=== PATIENT | male | born 1985 | race Asian ===

== ENCOUNTER 2020-03-29 10:47 | Inpatient (IN) | payer OTHER, MEDICAID ==
[~2020-03-29] VITALS: Ht 165.1 cm; Wt 67.4 kg
[2020-03-29 11:12] LABS: BASO # 0.1 x10^3/uL (0.0-0.2); BASO % 1 % (0-3); EOS # 0.1 x10^3/uL (0.0-0.7); EOS % 1 % (0-3); HEMATOCRIT 25.6 % (39.0-53.0); HEMOGLOBIN 8.8 g/dL (13.0-17.5); LYMPH # 0.7 x10^3/uL (1.0-4.8); LYMPH % 6 % (24-48); MEAN CORPUSCULAR HEMOGLOBIN 31 pg (25-35); MEAN CORPUSCULAR HGB CONC 34 g/dL (31-37); MEAN CORPUSCULAR VOLUME 89 fL (79-100); MONO # 0.6 x10^3/uL (0.0-1.1); MONO % 6 % (0-9); NEUT # 9.4 x10^3/uL (1.8-7.7); NEUT % 87 % (31-73); PLATELET COUNT 191 x10^3/uL (140-400); RED BLOOD COUNT 2.87 x10^6/uL (4.30-5.70); RED CELL DISTRIBUTION WIDTH 15.5 % (11.5-14.5); WHITE BLOOD COUNT 10.8 x10^3/uL (4.0-11.0)
--- NOTE | 2020-03-29 11:18 | PHYS DOC ---
General Adult EDM: Chief Complaint: ABDOMINAL PAIN HPI: HPI: Patient is a 34 year old male who presents with generalized abdominal pain that started last night. He states he is peritoneal dialysis because of kidney failure. When I asked him who his chili pepper grinder is he states that it is a doctor on the [place] side and he cannot remember the name. He states he does his dialysis every night. He states he has had dialysis today. He states he had a bowel movement yesterday that was normal for him. He denies nausea, vomiting, chest pain, shortness of air, fever, back pain, radiation of pain, headache, dizziness. He states his pain is a 7 out of 10 and states that it is aching. He denies any radiation. The only history he gives me is kidney failure with peritoneal dialysis and TBI. Review of Systems: Review of Systems: Constitutional: Denies fever or chills. [] Eyes: Denies change in visual acuity. [] HENT: Denies nasal congestion or sore throat. [] Respiratory: Denies cough or shortness of breath. [] Cardiovascular: Denies chest pain or edema. [] GI: + abdominal pain, denies nausea, vomiting, bloody stools or diarrhea. [] : Denies dysuria. [] Musculoskeletal: Denies back pain or joint pain. [] Integument: Denies rash. Right lower leg skin color change.[] Neurologic: Denies headache, focal weakness or sensory changes. [] Endocrine: Denies polyuria or polydipsia. [] Lymphatic: Denies swollen glands. [] Psychiatric: Denies depression or anxiety. [] Heart Score: Risk Factors: Risk Factors: DM, Current or recent (<one month) smoker, HTN, HLP, family history of CAD, obesity. Risk Scores: Score 0 - 3: 2.5% MACE over next 6 weeks - Discharge Home Score 4 - 6: 20.3% MACE over next 6 weeks - Admit for Clinical Observation Score 7 - 10: 72.7% MACE over next 6 weeks - Early Invasive Strategies Current Medications: Current Medications Medications (Trade) Dose Ordered Sig/Corky Start Time Stop Time Status Last Admin Dose Admin Fentanyl Citrate (Fentanyl 2ml Vial) 50 mcg 1X ONCE 03/29/20 11:00 03/29/20 11:01 UNV Allergies: Allergies: Allergies Coded Allergies Type Severity Reaction Last Updated Verified No Known Drug Allergies 7/2/20 No Physical Exam: PE: Constitutional: Well developed, well nourished, no acute distress, non-toxic appearance. [] HENT: Normocephalic, atraumatic, bilateral external ears normal, oropharynx moist, no oral exudates, nose normal. [] Eyes: PERRLA, EOMI, conjunctiva normal, no discharge. [] Neck: Normal range of motion, no tenderness, supple, no stridor. [] Cardiovascular:Heart rate regular rhythm, no murmur [] Lungs & Thorax: Bilateral breath sounds clear to auscultation [] Abdomen: Bowel sounds normal, soft, generalized tenderness, no masses, no pulsatile masses. [] Skin: Warm, dry, no erythema, no rash. Right lower leg dark brown in color. [] Back: No tenderness, no CVA tenderness. [] Extremities: No tenderness, no cyanosis, no clubbing, ROM intact, no edema. [] Neurologic: Alert and oriented X 3, normal motor function, normal sensory function, no focal deficits noted. [] Psychologic: Affect normal, judgement normal, mood normal. [] EKG: EK and read by Dr Woodson as Sinus Rhythm with ventricular premature complexes, and no STEMI[] Radiology/Procedures: Radiology/Procedures: [] Impression: [facility] [address] [place] [address] IMAGING REPORT Signed PATIENT: RADAMES TANNER ACCOUNT: [id number] : 1985 LOCATION: ER AGE: 34 SEX: M EXAM STATUS: REG ER ORD. PHYSICIAN: RONEY GALINDO APRN REASON: abd pain PROCEDURE: PORTABLE CHEST 1V PORTABLE CHEST 1V Clinical Indication: Reason: abd pain / Spl. Instructions: / History: Comparison: AP chest October 05, 2008. Findings: Cardiac size is normal. There is 4.3 cm oval opacity at the right tracheobronchial angle. There are right hemithorax pleural calcifications. There is opacity at the right lung base that is similar to prior study and may be due to scarring. There is right apical capping. Scattered calcifications in the soft tissues of the chest wall for example supraclavicular are of uncertain etiology. Interstitial markings are upper limits of normal. There is no pneumothorax. No pleural effusion is appreciated. No acute bone abnormality. IMPRESSION: 1. Oval opacity at the right tracheobronchial angle could be vascular or adenopathy or mass. Recommend further evaluation with CT chest with contrast. 2. There are right pleural calcifications. 3. Opacity in the right lung base may be scarring. Electronically signed by: Lino Victor MD (03/29/2020 11:49 AM) [id number] DICTATED and SIGNED BY: LINO VICTOR MD DATE: 03/29/20 1149 [facility] [address] [place] [address] IMAGING REPORT Signed PATIENT: RADAMES TANNER ACCOUNT: [id number] : 1985 LOCATION: ER AGE: 34 SEX: M EXAM STATUS: REG ER ORD. PHYSICIAN: RONEY GALINDO APRN REASON: abd pain PROCEDURE: CT ABDOMEN PELVIS WO CONTRAST CT STUDY OF THE ABDOMEN AND PELVIS WITHOUT CONTRAST CLINICAL INDICATIONS: Abdominal pain. TECHNIQUE: Noncontrast helical CT scanning of the abdomen and pelvis was performed. Without contrast, the sensitivity to detect organ pathology and GI tract pathology is decreased. PQRS compliance Statement One or more of the following individualized dose reduction techniques were utilized for this study: 1. Automated exposure control 2. Adjustment of the mA and/or kV according to patient size 3. Use of iterative reconstruction technique COMPARISON: None available. FINDINGS: The liver is homogeneous on this noncontrast study. Spleen is mildly enlarged measuring 13.7 cm in length. Pancreas is homogeneous in appearance on this noncontrast study. The gallbladder is small in size. No extrahepatic biliary ductal dilatation is seen. Both kidneys are small in size with multiple vascular calcifications or cortical calcifications. Upper pole 13 mm hypodense nodule is seen which measures 4 Hounsfield units. This may represent a cyst but curvilinear calcification is seen within the wall. Therefore, aneurysm is in the differential diagnosis given the other vascular calcifications. There is an ill-defined round area of the lower pole of the right kidney which could represent a right renal mass. This measures 25 mm. No hydronephrosis or hydroureter is seen. Urinary bladder is not distended. Calcified atheromatous disease of the abdominal aorta is seen. No focal aneurysmal dilatation is evident. No enlarged abdominal lymphadenopathy is seen. Bilateral pelvic inguinal nodules are seen with curvilinear calcifications and therefore most likely are vascular in nature. Additional calcified varices are seen within the flanks. This could represent collateral vessels. Surgical clips are seen within the right inguinal area. There is diffuse wall thickening of large and small bowel. No obstructive bowel pattern is seen. Diffuse wall thickening of the stomach enhancing. Small amount of ascites is present. Generalized soft tissue edema is seen. The heart size is enlarged. No pleural effusion is seen. However, calcified pleural plaque is seen on the right side along with a partially calcified posterior right lower lobe lung mass. This mass measures 4 cm in greatest transverse dimension. There is diffuse increased density of the bones. This may be secondary to renal osteodystrophy i.e. rugger [place] spine. IMPRESSION: Splenomegaly. Mild ascites. Generalized soft tissue edema. Multiple calcified varicosities of the abdominal wall. The findings may be seen with cirrhosis and portal vein hypertension. Small gallbladder may be a reflection of decreased bile output secondary to cirrhosis. Possible lower pole right renal mass. Renal cyst versus calcified aneurysm of the upper right kidney. Generalized wall thickening of large and small bowel and the stomach. This may be secondary to cirrhosis. This could also be seen with gastroenterocolitis if there are clinical findings of such. 4 cm posterior right lower lobe lung mass. Calcified pleural plaquing of the right hemithorax. Cardiomegaly. Renal osteodystrophy. Electronically signed by: Hayley Rivas MD (03/29/2020 12:39 PM) [id number] DICTATED and SIGNED BY: HAYLEY RIVAS MD DATE: 03/29/20 1239 [facility] [address] [place], [place] [id number] IMAGING REPORT Signed PATIENT: RADAMES TANNER ACCOUNT: [id number] : 1985 LOCATION: ER AGE: 34 SEX: M EXAM STATUS: REG ER ORD. PHYSICIAN: RONEY GALINDO APRN REASON: skin color change PROCEDURE: VENOUS LOWER EXTREMITY RIGHT EXAM: Right lower extremity venous Doppler. HISTORY: Right lower extremity pain/swelling. COMPARISON: None. FINDINGS: Grayscale and Doppler analysis of the right lower extremity deep venous system was performed with graded compression and augmentation. The common femoral, greater saphenous, superficial femoral, popliteal and calf veins were assessed. There is no evidence of deep venous thrombosis. IMPRESSION: 1. No evidence of deep venous thrombosis. Electronically signed by: Hannah Garay MD (03/29/2020 1:15 PM) [facility] DICTATED and SIGNED BY: PEPE GARAY MD DATE: 03/29/20 1315 [facility] [address] [place] [address] IMAGING REPORT Signed PATIENT: RADAMES TANNER ACCOUNT: [id number] : 1985 LOCATION: ER AGE: 34 SEX: M EXAM STATUS: REG ER ORD. PHYSICIAN: RONEY GALINDO APRN REASON: abnormal chest xray PROCEDURE: CT CHEST W/CONTRAST Examination: CT CHEST W/CONTRAST History: Reason: abnormal chest xray / Spl. Instructions: [id number] 75ML / History: Comparison/Correlation: None Findings: Axial images of chest were obtained without contrast. Sagittal and coronal reformatted images were provided. Extensive right pleural calcification is noted. Old left rib fractures noted. Right basilar discoid atelectasis or scarring is present. Relatively less right lung volume is noted as compared to the left lung volume. The ovoid opacity at the right tracheobronchial region noted on x-ray exam corresponds to a distended azygos vein. Contrast is noted to opacify this distended azygos vein. There are significant collaterals involving the right axillary region and chest english. There is discontinuous contrast opacification of the right subclavian vein. Vascular collaterals are noted involving the right chest wall in the superior mediastinum. Superior vena cava is relatively decreased in diameter. Coronary arterial calcifications are notable. Subtle interstitial thickening of lung manzo diffusely noted. Subtle groundglass appearance of the lingular region is nonspecific. Right posterior basilar opacity likely relating to atelectasis versus evident abutting the pleura. This is seen on axial images 37 through 43 and series 2. Kidneys are atrophic in appearance. Diffuse high density of bony structures which probably relate to renal osteodystrophy noted. Impression: There is no suspicious thoracic mass. The finding of concern on chest x-ray exam performed earlier the same day corresponds to a very distended azygos vein which is contrast opacified on this exam. Significant collateral venous structures are noted involving the right axillary and chest wall region. Mediastinal collaterals. Correlate for underlying right subclavian venous occlusive process. Right pleural calcifications. Right posterior basilar density presumably related to atelectasis or scarring. Correlate with previous exams to assess stability. Stability is unknown, interval follow-up CT in 4-6 months with contrast is recommended. Correlate with surgical history. PQRS Compliance Statement: One or more of the following individualized dose reduction techniques were utilized for this examination: 1. Automated exposure control 2. Adjustment of the mA and/or kV according to patient size 3. Use of iterative reconstruction technique Electronically signed by: Reg Burgess MD (03/29/2020 1:04 PM) [id number] DICTATED and SIGNED BY: REG BUREGSS MD DATE: 03/29/20 1304 Course & Med Decision Making: Course & Med Decision Making Pertinent Labs and Imaging studies reviewed. (See chart for details) Alert and oriented. Speaks in full complete sentences. Abdomen is tight but not distended and has generalized tenderness throughout. He is npt guarding. Lungs are clear to auscultation all lobes. Patient right lower leg has skin color change that is a dark brown in color. Patient unable to tell me the history of this. No infection of drainage. It is not cool to touch, red, hot, or swollen. No calf tenderness. Patient denies any numbness or tingling. Cap refil l less than 3 seconds. Pedal pulse present. I have spoken to Dr Moran who states to admit the patient and go ahead and do a CT Chest with contrast and they can dialysize the patient on the floor. I have had Dr Woodson review patient findings. He is admitted for ascities and dialysis. [] Janine Disclaimer: Janine Disclaimer: This electronic medical record was generated, in whole or in part, using a voice recognition dictation system. Departure Departure Impression: Primary Impression: Ascites Qualified Codes: R18.8 - Other ascites Disposition: ADMITTED INPATIENT Admitting Physician: PASQUALE Condition: STABLE Justicifation of Admission Dx: Justifications for Admission: Justification of Admission Dx: Yes Comments: RONEY Colon THEATRE DIRECTOR Mar 29, 2020 11:18
[2020-03-29 11:23] LABS: PROTHROMBIN TIME PATIENT 16.2 SEC (11.7-14.0)
[2020-03-29 11:24] LABS: CALCIUM 6.8 mg/dL (8.5-10.1); CREATININE 14.7 mg/dL (0.7-1.3); GFR 3.8; POTASSIUM 3.3 mmol/L (3.5-5.1)
[2020-03-29] MEDS ORDERED: fentaNYL PF VIAL 100 MCG/2 ML VIAL IVP ONE (11:30)
[2020-03-29 11:32] LABS: ALBUMIN 2.2 g/dL (3.4-5.0); ALBUMIN/GLOBULIN RATIO 0.5 (1.0-1.7); TOTAL BILIRUBIN 0.7 mg/dL (0.2-1.0); TOTAL PROTEIN 6.3 g/dL (6.4-8.2)
[2020-03-29 11:50] LABS: % EOS 1 % (0-5); % LYMPHS 11 % (24-48); % MONOS 6 % (0-10); % SEGS 82 % (35-66); PLT ESTIMATE ADEQUATE (ADEQUATE)
--- NOTE | 2020-03-29 11:51 | RAD ---
PORTABLE CHEST 1V Clinical Indication: Reason: abd pain / Spl. Instructions: / History: Comparison: AP chest October 05, 2008. Findings: Cardiac size is normal. There is 4.3 cm oval opacity at the right tracheobronchial angle. There are right hemithorax pleural calcifications. There is opacity at the right lung base that is similar to prior study and may be due to scarring. There is right apical capping. Scattered calcifications in the soft tissues of the chest wall for example supraclavicular are of uncertain etiology. Interstitial markings are upper limits of normal. There is no pneumothorax. No pleural effusion is appreciated. No acute bone abnormality. IMPRESSION: 1. Oval opacity at the right tracheobronchial angle could be vascular or adenopathy or mass. Recommend further evaluation with CT chest with contrast. 2. There are right pleural calcifications. 3. Opacity in the right lung base may be scarring. Electronically signed by: Lino Victor MD (03/29/2020 11:49 AM) [id number]
[2020-03-29] MEDS ORDERED: IV NORMAL SALINE 500ML BAG 500 ML IV ONE (12:30)
--- NOTE | 2020-03-29 12:42 | RAD ---
CT STUDY OF THE ABDOMEN AND PELVIS WITHOUT CONTRAST CLINICAL INDICATIONS: Abdominal pain. TECHNIQUE: Noncontrast helical CT scanning of the abdomen and pelvis was performed. Without contrast, the sensitivity to detect organ pathology and GI tract pathology is decreased. PQRS compliance Statement One or more of the following individualized dose reduction techniques were utilized for this study: 1. Automated exposure control 2. Adjustment of the mA and/or kV according to patient size 3. Use of iterative reconstruction technique COMPARISON: None available. FINDINGS: The liver is homogeneous on this noncontrast study. Spleen is mildly enlarged measuring 13.7 cm in length. Pancreas is homogeneous in appearance on this noncontrast study. The gallbladder is small in size. No extrahepatic biliary ductal dilatation is seen. Both kidneys are small in size with multiple vascular calcifications or cortical calcifications. Upper pole 13 mm hypodense nodule is seen which measures 4 Hounsfield units. This may represent a cyst but curvilinear calcification is seen within the wall. Therefore, aneurysm is in the differential diagnosis given the other vascular calcifications. There is an ill-defined round area of the lower pole of the right kidney which could represent a right renal mass. This measures 25 mm. No hydronephrosis or hydroureter is seen. Urinary bladder is not distended. Calcified atheromatous disease of the abdominal aorta is seen. No focal aneurysmal dilatation is evident. No enlarged abdominal lymphadenopathy is seen. Bilateral pelvic inguinal nodules are seen with curvilinear calcifications and therefore most likely are vascular in nature. Additional calcified varices are seen within the flanks. This could represent collateral vessels. Surgical clips are seen within the right inguinal area. There is diffuse wall thickening of large and small bowel. No obstructive bowel pattern is seen. Diffuse wall thickening of the stomach enhancing. Small amount of ascites is present. Generalized soft tissue edema is seen. The heart size is enlarged. No pleural effusion is seen. However, calcified pleural plaque is seen on the right side along with a partially calcified posterior right lower lobe lung mass. This mass measures 4 cm in greatest transverse dimension. There is diffuse increased density of the bones. This may be secondary to renal osteodystrophy i.e. rugger [place] spine. IMPRESSION: Splenomegaly. Mild ascites. Generalized soft tissue edema. Multiple calcified varicosities of the abdominal wall. The findings may be seen with cirrhosis and portal vein hypertension. Small gallbladder may be a reflection of decreased bile output secondary to cirrhosis. Possible lower pole right renal mass. Renal cyst versus calcified aneurysm of the upper right kidney. Generalized wall thickening of large and small bowel and the stomach. This may be secondary to cirrhosis. This could also be seen with gastroenterocolitis if there are clinical findings of such. 4 cm posterior right lower lobe lung mass. Calcified pleural plaquing of the right hemithorax. Cardiomegaly. Renal osteodystrophy. Electronically signed by: Cory Rivas MD (03/29/2020 12:39 PM) [id number]
[2020-03-29] MEDS ORDERED: IOHEXOL 300 MG/ML 100ML VIAL. IV ONE (12:45)
[2020-03-29] MEDS ORDERED: CONTRAST GIVEN. MC PRN (12:45)
--- NOTE | 2020-03-29 13:07 | RAD ---
Examination: CT CHEST W/CONTRAST History: Reason: abnormal chest xray / Spl. Instructions: [id number] 75ML / History: Comparison/Correlation: None Findings: Axial images of chest were obtained without contrast. Sagittal and coronal reformatted images were provided. Extensive right pleural calcification is noted. Old left rib fractures noted. Right basilar discoid atelectasis or scarring is present. Relatively less right lung volume is noted as compared to the left lung volume. The ovoid opacity at the right tracheobronchial region noted on x-ray exam corresponds to a distended azygos vein. Contrast is noted to opacify this distended azygos vein. There are significant collaterals involving the right axillary region and chest english. There is discontinuous contrast opacification of the right subclavian vein. Vascular collaterals are noted involving the right chest wall in the superior mediastinum. Superior vena cava is relatively decreased in diameter. Coronary arterial calcifications are notable. Subtle interstitial thickening of lung manzo diffusely noted. Subtle groundglass appearance of the lingular region is nonspecific. Right posterior basilar opacity likely relating to atelectasis versus evident abutting the pleura. This is seen on axial images 37 through 43 and series 2. Kidneys are atrophic in appearance. Diffuse high density of bony structures which probably relate to renal osteodystrophy noted. Impression: There is no suspicious thoracic mass. The finding of concern on chest x-ray exam performed earlier the same day corresponds to a very distended azygos vein which is contrast opacified on this exam. Significant collateral venous structures are noted involving the right axillary and chest wall region. Mediastinal collaterals. Correlate for underlying right subclavian venous occlusive process. Right pleural calcifications. Right posterior basilar density presumably related to atelectasis or scarring. Correlate with previous exams to assess stability. Stability is unknown, interval follow-up CT in 4-6 months with contrast is recommended. Correlate with surgical history. PQRS Compliance Statement: One or more of the following individualized dose reduction techniques were utilized for this examination: 1. Automated exposure control 2. Adjustment of the mA and/or kV according to patient size 3. Use of iterative reconstruction technique Electronically signed by: Reg Gonzalez MD (03/29/2020 1:04 PM) [id number]
--- NOTE | 2020-03-29 13:18 | RAD ---
EXAM: Right lower extremity venous Doppler. HISTORY: Right lower extremity pain/swelling. COMPARISON: None. FINDINGS: Grayscale and Doppler analysis of the right lower extremity deep venous system was performed with graded compression and augmentation. The common femoral, greater saphenous, superficial femoral, popliteal and calf veins were assessed. There is no evidence of deep venous thrombosis. IMPRESSION: 1. No evidence of deep venous thrombosis. Electronically signed by: aHnnah Garay MD (03/29/2020 1:15 PM) [facility]
[2020-03-29] MEDS ORDERED: SEVE800T9 PO (17:22)
[2020-03-29] MEDS ORDERED: HYDR25TA PO (17:22)
[2020-03-29] MEDS ORDERED: FOLI0.8T3 PO (17:22)
[2020-03-29] MEDS ORDERED: CARV12.511 PO (17:22)
[2020-03-29] MEDS ORDERED: ALLO100T PO (17:22)
[2020-03-29] MEDS ORDERED: CINA90TA PO (17:22)
[2020-03-29] MEDS ORDERED: LEVO100T5 PO (17:22)
[2020-03-29] MEDS ORDERED: CALC500T54 PO (17:22)
[2020-03-29 17:35] VITALS: BP 116/81
--- NOTE | 2020-03-29 17:39 | HP ---
ADMIT DATE: 03/29/2020 CHIEF COMPLAINT: Abdominal pain. HISTORY OF PRESENT ILLNESS: The patient is a pleasant 34-year-old male who presents with abdominal pain. He is on peritoneal dialysis. We are concerned he may have some bacterial infection into his peritoneum. I discussed the case with ER physician. We are going to place him on IV antibiotics and consult Nephrology and Infectious Disease. PAST MEDICAL HISTORY: End-stage renal disease, on peritoneal dialysis; hypertension; hyperlipidemia, hypothyroidism, gout. ALLERGIES: None. FAMILY HISTORY: Diabetes. SOCIAL HISTORY: Does not drink, smoke or take drugs. MEDICATIONS: Reviewed, please refer to the MRAD. REVIEW OF SYSTEMS: GENERAL: No history of weight change, weakness or fevers. SKIN: No bruising, hair changes or rashes. EYES: No blurred, double or loss of vision. NOSE AND THROAT: No history of nosebleeds, hoarseness or sore throat. HEART: No history of palpitations, chest pain or shortness of breath on exertion. LUNGS: Denies cough, hemoptysis, wheezing or shortness of breath. GASTROINTESTINAL: He complains of abdominal pain. GENITOURINARY: No history of frequency, urgency, hesitancy or nocturia. NEUROLOGIC: Denies history of numbness, tingling, tremor or weakness. PSYCHIATRIC: No history of panic, anxiety or depression. ENDOCRINE: No history of heat or cold intolerance, polyuria or polydipsia. EXTREMITIES: Denies muscle weakness, joint pain, pain on walking or stiffness. PHYSICAL EXAMINATION: VITALS: Within normal limits and are stable. GENERAL: No apparent distress. Alert and oriented. HEENT: Normal cephalic atraumatic, external auditory canals are patent EYES: Extraocular muscles are intact, pupils are equally round and reactive to light and accommodation MUSCULOSKELETAL: Well developed, well nourished, good range of motion ENDOCRINE: No thyromegaly was palpated LYMPHATICS: No cervical chain or axillary nodes were noted HEMATOPOIETIC: No bruising NECK: Supple, no JVD, no thyromegaly was noted. LUNGS: Clear to auscultation in all lung manzo without rhonchi or wheezing. HEART: RRR, S1, S2 present. Peripheral pulses intact, no obvious murmurs were noted. ABDOMEN: He has some abdominal distention and ascites. EXTREMITIES: Without any cyanosis, clubbing, or edema. Pedal pulses intact, Homans sign is negative. NEUROLOGIC: Normal speech, normal tone. A & O x3, moves all extremities, no obvious focal deficits. PSYCHIATRIC: Normal affect, normal mood. Stable. SKIN: No ulcerations or rashes, good skin turgor, no jaundice. VASCULAR: Good capillary refill, neurovascular bundle appears to be intact. ASSESSMENT AND PLAN: Abdominal pain and ascites. Suspect possible peritoneal infection. We will start IV antibiotics. Consult ID, consult Nephrology. Home meds, DVT prophylaxis. Full code. PROGNOSIS: Guarded. MEG [place] DO DR: LEORA/patric JOB#: [id number] / [id number]
[2020-03-29] MEDS ORDERED: CALCIUM CARBONATE 500 MG TABLET PO PRN (18:00)
[2020-03-29] MEDS ORDERED: POTASSIUM CHLORIDE 20 MEQ TABLET.ER. PO ONE (18:15)
[2020-03-29] MEDS: CARVEDILOL 12.5 MG TABLET. PO SCH (18:59)
[2020-03-29] MEDS: SEVELAMER CARBONATE 800 MG TABLET. PO SCH (18:59)
[2020-03-29] MEDS: HYDROcodone/APAP 5/325MG 1 TAB TABLET PO PRN (18:59)
[2020-03-29] MEDS: hydrOXYzine 25 MG TABLET PO SCH (21:02)
[2020-03-29] MEDS: VANCOMYCIN PER PHARMACY MC PRN (21:04)
--- NOTE | 2020-03-29 21:06 | NUR ---
Pharmacy Vancomycin Dosing Note S: Consulted to monitor and dose vancomycin started 03/29/20. O: RADAMES TANNER is a 34 year old M with , PERITONITIS . Other Antibiotics: ZOSYN LABS: Last BUN: 76 Last Creatinine: 14.7 Creatinine Clearance: PERITONEAL DIALYSIS mL/min Last WBC: 10.8 Tmax (past 24 hours): 98.3 Target Trough: 10-20 A: Based on: VANCO dosing guidelines P: 1. Begin Vancomycin 1750mg LOAD dose IV then dose per level 2. Follow up Random level on 04/01/20 at 0500 3. Pharmacy will continue to monitor, follow and adjust therapy as needed. DONAVON YUAN [facility], 03/29/20 1317
--- NOTE | 2020-03-29 22:04 | PDOC2 ---
CONSULT Date of Consult Date of Consult DATE: 03/29/20 TIME: 13:10 Reason for Consult Reason for Consult: ESRD Identification/Chief Complaint Chief Complaint Pain in abdomen Source Source: Chart review, Patient History of Present Illness Reason for Visit: Patient is a 34 year old male seen in the ER , has ESRD on PD , presents with generalized abdominal pain that started last night. He reports no issues with PD, states fluid was clear last night. He states pain is diffuse. No N/V/d. Denies any RRF . He has been on PD for approx 1-1/2 years . 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 Past Medical History Past Medical History End-stage renal disease, on peritoneal dialysis;hypertension; hypothyroidism, gout. Family History Family History Diabetes. Social History Social History Does not drink, smoke or take drugs. Current Problem List Problem List Problems Medical Problems: (1) Abdominal pain Status: Acute (2) Ascites Status: Acute Current Medications Current Medications Current Medications Fentanyl Citrate (Fentanyl 2ml Vial) 50 mcg 1X ONCE IVP Last administered on 03/29/20at 11:56; Start 03/29/20 at 11:30; Stop 03/29/20 at 11:31; Status DC Sodium Chloride 500 ml @ 500 mls/hr 1X ONCE IV Last administered on 03/29/20at 12:56; Start 03/29/20 at 12:30; Stop 03/29/20 at 13:29; Status DC Iohexol (Omnipaque 300 Mg/ml) 75 ml 1X ONCE IV Last administered on 03/29/20at 12:44; Start 03/29/20 at 12:45; Stop 03/29/20 at 12:46; Status DC Info (CONTRAST GIVEN -- Rx MONITORING) 1 each PRN DAILY PRN MC SEE COMMENTS; Start 03/29/20 at 12:45; Stop 03/31/20 at 12:44 Allopurinol (Zyloprim) 100 mg DAILY PO ; Start 03/30/20 at 09:00 Carvedilol (Coreg) 12.5 mg BIDWMEALS PO Last administered on 03/29/20at 18:59; Start 03/29/20 at 18:00 Hydroxyzine HCl (Atarax) 25 mg TID PO Last administered on 03/29/20at 21:02; Start 03/29/20 at 21:00 Levothyroxine Sodium (Synthroid) 100 mcg DAILYAC PO ; Start 03/30/20 at 07:30 Sevelamer Carbonate (Renvela) 800 mg TIDWMEALS PO Last administered on 03/29/20at 18:59; Start 03/29/20 at 18:00 Calcium Carbonate/ Glycine (Oscal) 500 mg PRN BID PRN PO DYSPEPSIA; Start 03/29/20 at 18:00 Cinacalcet (Sensipar) 90 mg DAILY PO ; Start 03/30/20 at 09:00 Acetaminophen/ Hydrocodone Bitart (Lortab 5/325) 1 tab PRN Q4HRS PRN PO PAIN Last administered on 03/29/20at 18:59; Start 03/29/20 at 18:15 Potassium Chloride (Klor-Con) 40 meq 1X ONCE PO Last administered on 03/29/20at 18:58; Start 03/29/20 at 18:15; Stop 03/29/20 at 18:20; Status DC Vancomycin HCl (Vanco Per Pharmacy) 1 each PRN DAILY PRN MC SEE COMMENTS Last administered on 03/29/20at 21:04; Start 03/29/20 at 20:15 Vancomycin HCl 1.75 gm/Sodium Chloride 500 ml @ 250 mls/hr 1X ONCE IV ; Start 03/29/20 at 23:00; Stop 03/30/20 at 00:59 Piperacillin Sod/ Tazobactam Sod 2.25 gm/Sodium Chloride 50 ml @ 100 mls/hr Q8HRS IV ; Start 03/29/20 at 22:00 Vancomycin HCl (Vancomycin Random Level) 1 each 1X ONCE MC ; Start 04/01/20 at 05:00; Stop 04/01/20 at 05:01 Active Scripts Active Reported Renvela (Sevelamer Carbonate) 800 Mg Tablet 800 Mg PO TIDWMEALS Nephro-Eliu Tablet (Folic Acid/Vitamin B Comp W-C) 0.8 Mg Tablet 0.8 Mg PO DAILY Levothyroxine Sodium 100 Mcg Tablet 100 Mcg PO DAILYAC Hydroxyzine Hcl 25 Mg Tablet 25 Mg PO TID Sensipar (Cinacalcet Hcl) 90 Mg Tablet 90 Mg PO DAILY Carvedilol (Carvedilol) 12.5 Mg Tablet 12.5 Mg PO BIDWMEALS Allopurinol 100 Mg Tablet 100 Mg PO DAILY Calcium (Calcium Carbonate) 500 Mg Tab.chew 1 Tab PO BID PRN 30 Days Allergies Allergies: Coded Allergies: No Known Drug Allergies (Unverified , 03/29/20) ROS Review of System Per HPI Physical Exam Physical Exam GEN: NAD HEEN: OM moist NECK supple CVS: S1S2 RESP: CTA, No use of Acc. 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 Renal cyst versus calcified aneurysm of the upper right kidney. Oval opacity at the right tracheobronchial angle on Cxr CT chest with c ontrast recommended and pending Primary managing Labs Labs Laboratory Tests Test 03/29/20 11:05 White Blood Count 10.8 x10^3/uL (4.0-11.0) Red Blood Count 2.87 x10^6/uL (4.30-5.70) Hemoglobin 8.8 g/dL (13.0-17.5) Hematocrit 25.6 % (39.0-53.0) Mean Corpuscular Volume 89 fL (79-100) Mean Corpuscular Hemoglobin 31 pg (25-35) Mean Corpuscular Hemoglobin Concent 34 g/dL (31-37) Red Cell Distribution Width 15.5 % (11.5-14.5) Platelet Count 191 x10^3/uL (140-400) Neutrophils (%) (Auto) 87 % (31-73) Lymphocytes (%) (Auto) 6 % (24-48) Monocytes (%) (Auto) 6 % (0-9) Eosinophils (%) (Auto) 1 % (0-3) Basophils (%) (Auto) 1 % (0-3) Neutrophils # (Auto) 9.4 x10^3/uL (1.8-7.7) Lymphocytes # (Auto) 0.7 x10^3/uL (1.0-4.8) Monocytes # (Auto) 0.6 x10^3/uL (0.0-1.1) Eosinophils # (Auto) 0.1 x10^3/uL (0.0-0.7) Basophils # (Auto) 0.1 x10^3/uL (0.0-0.2) Segmented Neutrophils % 82 % (35-66) Lymphocytes % 11 % (24-48) Monocytes % 6 % (0-10) Eosinophils % 1 % (0-5) Platelet Estimate Adequate (ADEQUATE) Prothrombin Time 16.2 SEC (11.7-14.0) Prothromb Time International Ratio 1.3 (0.8-1.1) Sodium Level 135 mmol/L (136-145) Potassium Level 3.3 mmol/L (3.5-5.1) Chloride Level 95 mmol/L (98-107) Carbon Dioxide Level 26 mmol/L (21-32) Anion Gap 14 (6-14) Blood Urea Nitrogen 76 mg/dL (8-26) Creatinine 14.7 mg/dL (0.7-1.3) Estimated GFR (Cockcroft-Gault) 3.8 BUN/Creatinine Ratio 5 (6-20) Glucose Level 101 mg/dL (70-99) Calcium Level 6.8 mg/dL (8.5-10.1) Total Bilirubin 0.7 mg/dL (0.2-1.0) Aspartate Amino Transf (AST/SGOT) 10 U/L (15-37) Alanine Aminotransferase (ALT/SGPT) 17 U/L (16-63) Alkaline Phosphatase 441 U/L (46-116) Troponin I Quantitative 0.072 ng/mL (0.000-0.055) Total Protein 6.3 g/dL (6.4-8.2) Albumin 2.2 g/dL (3.4-5.0) Albumin/Globulin Ratio 0.5 (1.0-1.7) Lipase 88 U/L (73-393) Laboratory Tests Test 03/29/20 11:05 White Blood Count 10.8 x10^3/uL (4.0-11.0) Red Blood Count 2.87 x10^6/uL (4.30-5.70) Hemoglobin 8.8 g/dL (13.0-17.5) Hematocrit 25.6 % (39.0-53.0) Mean Corpuscular Volume 89 fL (79-100) Mean Corpuscular Hemoglobin 31 pg (25-35) Mean Corpuscular Hemoglobin Concent 34 g/dL (31-37) Red Cell Distribution Width 15.5 % (11.5-14.5) Platelet Count 191 x10^3/uL (140-400) Neutrophils (%) (Auto) 87 % (31-73) Lymphocytes (%) (Auto) 6 % (24-48) Monocytes (%) (Auto) 6 % (0-9) Eosinophils (%) (Auto) 1 % (0-3) Basophils (%) (Auto) 1 % (0-3) Neutrophils # (Auto) 9.4 x10^3/uL (1.8-7.7) Lymphocytes # (Auto) 0.7 x10^3/uL (1.0-4.8) Monocytes # (Auto) 0.6 x10^3/uL (0.0-1.1) Eosinophils # (Auto) 0.1 x10^3/uL (0.0-0.7) Basophils # (Auto) 0.1 x10^3/uL (0.0-0.2) Segmented Neutrophils % 82 % (35-66) Lymphocytes % 11 % (24-48) Monocytes % 6 % (0-10) Eosinophils % 1 % (0-5) Platelet Estimate Adequate (ADEQUATE) Prothrombin Time 16.2 SEC (11.7-14.0) Prothromb Time International Ratio 1.3 (0.8-1.1) Sodium Level 135 mmol/L (136-145) Potassium Level 3.3 mmol/L (3.5-5.1) Chloride Level 95 mmol/L (98-107) Carbon Dioxide Level 26 mmol/L (21-32) Anion Gap 14 (6-14) Blood Urea Nitrogen 76 mg/dL (8-26) Creatinine 14.7 mg/dL (0.7-1.3) Estimated GFR (Cockcroft-Gault) 3.8 BUN/Creatinine Ratio 5 (6-20) Glucose Level 101 mg/dL (70-99) Calcium Level 6.8 mg/dL (8.5-10.1) Total Bilirubin 0.7 mg/dL (0.2-1.0) Aspartate Amino Transf (AST/SGOT) 10 U/L (15-37) Alanine Aminotransferase (ALT/SGPT) 17 U/L (16-63) Alkaline Phosphatase 441 U/L (46-116) Troponin I Quantitative 0.072 ng/mL (0.000-0.055) Total Protein 6.3 g/dL (6.4-8.2) Albumin 2.2 g/dL (3.4-5.0) Albumin/Globulin Ratio 0.5 (1.0-1.7) Lipase 88 U/L (73-393) Review All relevant outside records, renal labs, imaging studies, telemetry/EKG's were reviewed. Images Images CT scan abdomen w/o contrast-- IMPRESSION: Splenomegaly. Mild ascites. Generalized soft tissue edema. Multiple calcified varicosities of the abdominal wall. The findings may be seen with cirrhosis and portal vein hypertension. Small gallbladder may be a reflection of decreased bile output secondary to cirrhosis. Possible lower pole right renal mass. Renal cyst versus calcified aneurysm of the upper right kidney. Generalized wall thickening of large and small bowel and the stomach. This may be secondary to cirrhosis. This could also be seen with gastroenterocolitis if there are clinical findings of such. 4 cm posterior right lower lobe lung mass. Calcified pleural plaquing of the right hemithorax. Cardiomegaly. CXR-- 1. Oval opacity at the right tracheobronchial angle could be vascular or adenopathy or mass. Recommend further evaluation with CT chest with contrast. 2. There are right pleural calcifications. 3. Opacity in the right lung base may be scarring. Renal osteodystrophy. KODAK RICHEY MD Mar 29, 2020 22:04
[2020-03-29 22:11] LABS: BF CLARITY HAZY; BF COLOR STRAW; BF SOURCE PERITONEAL
[2020-03-29 22:12] LABS: BF MON % 10 %; BF PMN % 90 %; BF RBC COUNT 2 /cmm (Not Established); BF WBC COUNT 1330 /cmm (Not Established)
[2020-03-29] MEDS: PIPERACILLIN/TAZOBACTAM 2.25 GM in IV NORMAL SALINE 50ML 50 ML IV SCH (22:41)
[2020-03-29] MEDS ORDERED: VANCOMYCIN 1.75 GM in IV NORMAL SALINE 500ML BAG 500 ML IV ONE (23:00)
[2020-03-29 23:59] VITALS: BP 111/73
[2020-03-30] VITALS (17 sets, daily range): BP systolic 74–135; BP diastolic 47–82
[2020-03-30] MEDS: HYDROcodone/APAP 5/325MG 1 TAB TABLET PO PRN ×3 (04:43→18:00)
[2020-03-30] MEDS: PIPERACILLIN/TAZOBACTAM 2.25 GM in IV NORMAL SALINE 50ML 50 ML IV SCH ×3 (05:32→21:55)
[2020-03-30] MEDS: LEVOTHYROXINE 100 MCG TABLET PO SCH (08:11)
[2020-03-30] MEDS: SEVELAMER CARBONATE 800 MG TABLET. PO SCH ×3 (08:11→17:00)
[2020-03-30] MEDS: ALLOPURINOL 100 MG TABLET. PO SCH (08:12)
[2020-03-30] MEDS: CINACALCET HCL 30 MG TABLET PO SCH (08:12)
[2020-03-30] MEDS: hydrOXYzine 25 MG TABLET PO SCH ×3 (08:12→20:38)
[2020-03-30] MEDS: CARVEDILOL 12.5 MG TABLET. PO SCH ×2 (08:14→17:00)
[2020-03-30] MEDS ORDERED: IV NORMAL SALINE 250ML 250 ML IV ONE ×2 (11:15→11:30)
[2020-03-30] MEDS ORDERED: IV NORMAL SALINE 1000ML BAG 1,000 ML IV ONE (11:15)
--- NOTE | 2020-03-30 11:33 | PDOC ---
[employer] PROGRESS NOTE Chief Complaint Chief Complaint Probable intra-abdominal infection with peritonitis New finding of chest mass on CAT scan Organomegaly Cirrhosis End-stage renal disease, on peritoneal dialysis; hypertension; hyperlipidemia, hypothyroidism, gout. History of Present Illness History of Present Illness 03/30/2020 Patient seen and examined Chart reviewed Discussed with RN He is quite ill Vitals/I&O Vitals/I&O: Vital Signs Date Time Temp Pulse Resp B/P (MAP) Pulse Ox O2 Delivery O2 Flow Rate FiO2 03/30/20 11:03 98.5 82 16 79/47 (58) 94 Nasal Cannula 1.0 98.5 I & O 03/29/20 03/29/20 03/30/20 15:00 23:00 07:00 Intake Total 100 ml 300 ml Balance 100 ml 300 ml Physical Exam General: moderate distress Heart: Regular rate Lungs: Crackles Abdomen: Other (Distended tender) Extremities: No clubbing Skin: No rashes Labs Labs: Laboratory Tests Test 03/29/20 19:55 Body Fluid Source Peritoneal Body Fluid Color Straw Body Fluid Clarity Hazy Body Fluid Nucleated Cells 1330 /cmm (Not Established) Body Fluid Mononuclear WBCs (%) 10 % Body Fluid Polymorphonuclear Cells 90 % Body Fluid Total RBCs Counted 2 /cmm (Not Established) Assessment and Plan Assessmemt and Plan Problems Medical Problems: (1) Abdominal pain Status: Acute (2) Ascites Status: Acute Probable intra-abdominal infection with peritonitis New finding of chest mass on CAT scan Organomegaly Cirrhosis End-stage renal disease, on peritoneal dialysis; hypertension; hyperlipidemia, hypothyroidism, gout. Plan IV antibiotics I have consulted infectious disease nephrology and pulmonary medicine Peritoneal dialysis per nephrology Trend labs Home meds DVT prophylaxis Full code Long-term prognosis extremely guarded at best Comment Review of Relevant I have reviewed the following items pablo (where applicable) has been applied. Medications: Current Medications Medications (Trade) Dose Ordered Sig/Corky Route PRN Reason Start Time Stop Time Status Last Admin Dose Admin Sodium Chloride 500 ml @ 500 mls/hr 1X ONCE IV 03/29/20 12:30 03/29/20 13:29 DC 03/29/20 12:56 Iohexol (Omnipaque 300 Mg/ml) 75 ml 1X ONCE IV 03/29/20 12:45 03/29/20 12:46 DC 03/29/20 12:44 Allopurinol (Zyloprim) 100 mg DAILY PO 03/30/20 09:00 03/30/20 08:12 Carvedilol (Coreg) 12.5 mg BIDWMEALS PO 03/29/20 18:00 03/29/20 18:59 Hydroxyzine HCl (Atarax) 25 mg TID PO 03/29/20 21:00 03/30/20 08:12 Levothyroxine Sodium (Synthroid) 100 mcg DAILYAC PO 03/30/20 07:30 03/30/20 08:11 Sevelamer Carbonate (Renvela) 800 mg TIDWMEALS PO 03/29/20 18:00 03/30/20 08:11 Cinacalcet (Sensipar) 90 mg DAILY PO 03/30/20 09:00 03/30/20 08:12 Acetaminophen/ Hydrocodone Bitart (Lortab 5/325) 1 tab PRN Q4HRS PRN PO PAIN 03/29/20 18:15 03/30/20 04:43 Potassium Chloride (Klor-Con) 40 meq 1X ONCE PO 03/29/20 18:15 03/29/20 18:20 DC 03/29/20 18:58 Vancomycin HCl (Vanco Per Pharmacy) 1 each PRN DAILY PRN MC SEE COMMENTS 03/29/20 20:15 03/29/20 21:04 Vancomycin HCl 1.75 gm/Sodium Chloride 500 ml @ 250 mls/hr 1X ONCE IV 03/29/20 23:00 03/30/20 00:59 DC 03/29/20 23:24 Piperacillin Sod/ Tazobactam Sod 2.25 gm/Sodium Chloride 50 ml @ 100 mls/hr Q8HRS IV 03/29/20 22:00 03/30/20 05:32 Sodium Chloride 250 ml @ 250 mls/hr 1X ONCE IV 03/30/20 11:15 03/30/20 12:14 03/30/20 11:07 Sodium Chloride 1,000 ml @ 50 mls/hr 1X ONCE IV 03/30/20 11:15 03/31/20 07:14 03/30/20 11:11 Justicifation of Admission Dx: Justifications for Admission: Justification of Admission Dx: Yes MEG MADISON III DO Mar 30, 2020 11:33
--- NOTE | 2020-03-30 12:19 | PDOC ---
SUBJECTIVE ROS States pain in abdomen better , denies N/V. BP low per RN OBJECTIVE Vital Signs Vital Signs Date Time Temp Pulse Resp B/P (MAP) Pulse Ox O2 Delivery O2 Flow Rate FiO2 03/30/20 12:13 Nasal Cannula 03/30/20 11:03 98.5 82 16 79/47 (58) 94 1.0 98.5 I & 0 Intake and Output 03/30/20 07:00 Intake Total 400 ml Balance 400 ml Intake Oral 400 ml PHYSICAL EXAM Physical Exam GEN: NAD HEEN: OM moist NECK supple CVS: S1S2 RESP: CTA, No use of Acc. Muscle GI: diffuse Tenderness, PD catheter +, No e/o Infection at the exit site : No CVA tenderness, No Suprapubic Tenderness EXT No LE edema SKIN No rash NEURO AXO, Grossly normal DIAGNOSIS/ASSESSMENT Assessment & Plan ESRD- On PD CAPD as Discussed with Kosta Abdominal pain- CT abdomen done 10/30 Peritonitis,ID consulted Hypotension - monitor response to IV bolus,if persistent transfer to ICU Anemia- baseline unknown Splenomegaly on CT Cirrhosis and portal vein hypertension- On CT , pt denies Etoh use Possible lower pole right renal mass. Renal cyst versus calcified aneurysm of the upper right kidney. Oval opacity at the right tracheobronchial angle on Cxr CT chest with contrast recommended and pending Primary managing COMMENT/RELEVANT DATA Meds Current Medications Medications (Trade) Dose Ordered Sig/Corky Start Time Stop Time Status Last Admin Dose Admin Acetaminophen/ Hydrocodone Bitart (Lortab 5/325) 1 tab PRN Q4HRS PRN 03/29/20 18:15 03/30/20 12:13 1 TAB Allopurinol (Zyloprim) 100 mg DAILY 03/30/20 09:00 03/30/20 08:12 100 MG Calcium Carbonate/ Glycine (Oscal) 500 mg PRN BID PRN 03/29/20 18:00 Carvedilol (Coreg) 12.5 mg BIDWMEALS 03/29/20 18:00 03/29/20 18:59 12.5 MG Cinacalcet (Sensipar) 90 mg DAILY 03/30/20 09:00 03/30/20 08:12 90 MG Fentanyl Citrate (Fentanyl 2ml Vial) 50 mcg 1X ONCE 03/29/20 11:30 03/29/20 11:31 DC 03/29/20 11:56 50 MCG Hydroxyzine HCl (Atarax) 25 mg TID 03/29/20 21:00 03/30/20 08:12 25 MG Info (CONTRAST GIVEN -- Rx MONITORING) 1 each PRN DAILY PRN 03/29/20 12:45 03/31/20 12:44 Iohexol (Omnipaque 300 Mg/ml) 75 ml 1X ONCE 03/29/20 12:45 03/29/20 12:46 DC 03/29/20 12:44 75 ML Levothyroxine Sodium (Synthroid) 100 mcg DAILYAC 03/30/20 07:30 03/30/20 08:11 100 MCG Piperacillin Sod/ Tazobactam Sod 2.25 gm/Sodium Chloride 50 ml @ 100 mls/hr Q8HRS 03/29/20 22:00 03/30/20 05:32 100 MLS/HR Potassium Chloride (Klor-Con) 40 meq 1X ONCE 03/29/20 18:15 03/29/20 18:20 DC 03/29/20 18:58 40 MEQ Sevelamer Carbonate (Renvela) 800 mg TIDWMEALS 03/29/20 18:00 03/30/20 12:13 800 MG Sodium Chloride 1,000 ml @ 50 mls/hr 1X ONCE 03/30/20 11:15 03/31/20 07:14 03/30/20 11:11 50 MLS/HR Vancomycin HCl (Vanco Per Pharmacy) 1 each PRN DAILY PRN 03/29/20 20:15 03/29/20 21:04 1 EACH Vancomycin HCl (Vancomycin Random Level) 1 each 1X ONCE 04/01/20 05:00 04/01/20 05:01 Vancomycin HCl 1.75 gm/Sodium Chloride 500 ml @ 250 mls/hr 1X ONCE 03/29/20 23:00 03/30/20 00:59 DC 03/29/20 23:24 250 MLS/HR Lab Laboratory Tests Test 03/29/20 19:55 Body Fluid Source Peritoneal Body Fluid Color Straw Body Fluid Clarity Hazy Body Fluid Nucleated Cells 1330 /cmm (Not Established) Body Fluid Mononuclear WBCs (%) 10 % Body Fluid Polymorphonuclear Cells 90 % Body Fluid Total RBCs Counted 2 /cmm (Not Established) Results All relevant outside records, renal labs, imaging studies, telemetry/EKG's were reviewed. Alejandration of Admission Dx: Justifications for Admission: Justification of Admission Dx: Yes KODAK RICHEY MD Mar 30, 2020 12:19
[2020-03-30] MEDS ORDERED: NOREPINEPHRINE VIAL 8 MG in IV DEXTROSE 5% 250 ML IV PRN (13:00)
--- NOTE | 2020-03-30 13:01 | PDOC ---
Infectious Disease Note Vital Sign Vital Signs Vital Signs Date Time Temp Pulse Resp B/P (MAP) Pulse Ox O2 Delivery O2 Flow Rate FiO2 03/30/20 11:03 98.5 82 16 79/47 (58) 94 Nasal Cannula 1.0 98.5 Labs Lab Laboratory Tests Test 03/29/20 19:55 Body Fluid Source Peritoneal Body Fluid Color Straw Body Fluid Clarity Hazy Body Fluid Nucleated Cells 1330 /cmm (Not Established) Body Fluid Mononuclear WBCs (%) 10 % Body Fluid Polymorphonuclear Cells 90 % Body Fluid Total RBCs Counted 2 /cmm (Not Established) Objective Assessment Acute abdominal pain secondary to peritonitis -Peritoneal fl: cell count 1330. culture and gram stain pending Hypotension x 2 IVF boluses CKD on peritoneal dialysis Cirrhosis and portal hypertension on Ct scan Hypothyroidism Gout h/o TBI Plan Plan of Care Vancomycin and Zosyn recommended by Dr. Rodriguez. f/u peritoneal fl culture and gram stain Stat labs have been ordered BC x 2 Maintain aspiration precautions Pain management per primary Transfer to ICU underway D/w nursing Thank you [id number] Began Zosyn/Vanc last pm. D/w pharmacy -H/o STCN peritionitis at . To get PRBCs Attending Co-Sign Attending Co-Sign The patient was seen and interviewed as well as examined at the bedside. The chart was reviewed. The case was discussed. Agree with the plan of care. SUSANNA JONES APRN Mar 30, 2020 13:01 ODILON RODRIGUEZ MD Mar 30, 2020 14:37
[2020-03-30] MEDS: VANCOMYCIN PER PHARMACY MC PRN (13:16)
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
[2020-03-30 13:37] LABS: BASO % 1 % (0-3); EOS # 0.1 x10^3/uL (0.0-0.7); EOS % 2 % (0-3); LYMPH # 0.6 x10^3/uL (1.0-4.8); LYMPH % 12 % (24-48); MEAN CORPUSCULAR HEMOGLOBIN 31 pg (25-35); MEAN CORPUSCULAR HGB CONC 35 g/dL (31-37); MEAN CORPUSCULAR VOLUME 89 fL (79-100); MONO # 0.5 x10^3/uL (0.0-1.1); MONO % 9 % (0-9); NEUT # 3.9 x10^3/uL (1.8-7.7); NEUT % 77 % (31-73); PLATELET COUNT 128 x10^3/uL (140-400); RED BLOOD COUNT 1.93 x10^6/uL (4.30-5.70); RED CELL DISTRIBUTION WIDTH 15.4 % (11.5-14.5); WHITE BLOOD COUNT 5.1 x10^3/uL (4.0-11.0)
[2020-03-30 13:48] LABS: CALCIUM 6.2 mg/dL (8.5-10.1); CREATININE 12.9 mg/dL (0.7-1.3); GFR 4.5; POTASSIUM 3.7 mmol/L (3.5-5.1)
--- NOTE | 2020-03-30 14:21 | NUR ---
Transfer from 6 th floor w reported hypotension. Initial BP 85/52(63),then 79/51 (57). Low dose levo started. Dr Moran called ie decreases H/H. Orders noted. 1423 lab in w T/C ordered. Transfuse 1 unit when available. Poor IV stick. No central line ...on peritoneal dialysis. Jerry to anesthesia for placement w explanation to patient.
--- NOTE | 2020-03-30 15:48 | NUR ---
1515 Call from blood bank. Transfusion ready. Dr Beck in 5 min ago. Patient wanted to eat lunch first. Reports '"will return". Call to anesthesia 1545 Call to anesthesia w return call.. "ready to start OR case,will be over after induction. Call to blood bank to inform of temporary delay for pickup.
--- NOTE | 2020-03-30 19:40 | NUR ---
Upset w removal of NBP and pulse ox,no reasoning despite numerous attempts. C/O of everything "hurting me." I know my body and I dont have to do what u tell me.
--- NOTE | 2020-03-30 19:49 | NUR ---
Pt. refusing blood pressure checks, pulse ox probe, reports that they "sting". Reiterated to pt. the importance of blood pressure checks as he is currently on on medication through his IV to raise his blood pressure. Pt. states that he is fine now and does need any more medical care and that we are only treating him to "get money". Again explained to pt. in clear language that he has dangerously low blood pressure without Levophed infusion and also that his hemoglobin is critically low and that replacing this is important for his body to receive the oxygen it needs to function. Will take blood pressures as pt. allows.
[2020-03-30] MEDS: LACTOBACILLUS RHAMNOSUS GG 1 CAPSULE. PO SCH (20:38)
[2020-03-31] VITALS (18 sets, daily range): BP systolic 83–131; BP diastolic 48–87
[2020-03-31] MEDS: PIPERACILLIN/TAZOBACTAM 2.25 GM in IV NORMAL SALINE 50ML 50 ML IV SCH ×3 (06:23→21:51)
[2020-03-31 06:26] LABS: BASO % 1 % (0-3); EOS # 0.2 x10^3/uL (0.0-0.7); EOS % 4 % (0-3); HEMOGLOBIN 7.2 g/dL (13.0-17.5); LYMPH # 0.6 x10^3/uL (1.0-4.8); LYMPH % 11 % (24-48); MEAN CORPUSCULAR HEMOGLOBIN 30 pg (25-35); MEAN CORPUSCULAR HGB CONC 35 g/dL (31-37); MEAN CORPUSCULAR VOLUME 88 fL (79-100); MONO # 0.4 x10^3/uL (0.0-1.1); MONO % 8 % (0-9); NEUT # 3.9 x10^3/uL (1.8-7.7); NEUT % 76 % (31-73); PLATELET COUNT 156 x10^3/uL (140-400); RED BLOOD COUNT 2.37 x10^6/uL (4.30-5.70); RED CELL DISTRIBUTION WIDTH 15.5 % (11.5-14.5); WHITE BLOOD COUNT 5.2 x10^3/uL (4.0-11.0)
[2020-03-31 06:31] LABS: HEMATOCRIT 20.8 % (39.0-53.0)
[2020-03-31 06:40] LABS: CALCIUM 6.1 mg/dL (8.5-10.1); CREATININE 14.1 mg/dL (0.7-1.3)
--- NOTE | 2020-03-31 07:24 | PDOC ---
PULMONARY PROGRESS NOTES Subjective full not dictated # [id number] Vitals Vital Signs Date Time Temp Pulse Resp B/P (MAP) Pulse Ox O2 Delivery O2 Flow Rate FiO2 03/31/20 07:00 89 16 102/70 (81) Room Air 03/31/20 04:00 98.7 98.7 03/30/20 19:00 98 1.0 ROS: No Nausea, No Chest Pain, No Abdominal Pain, No Increase Cough General: Alert, Oriented X4 Lungs: Clear Cardiovascular: S1, S2 Abdomen: Other (distended acsities) Neuro Exam: Alert Extremities: No Edema Skin: Warm, Dry Labs Laboratory Tests Test 03/29/20 11:05 03/29/20 19:55 03/30/20 13:10 03/31/20 05:55 White Blood Count 10.8 x10^3/uL (4.0-11.0) 5.1 x10^3/uL (4.0-11.0) 5.2 x10^3/uL (4.0-11.0) Red Blood Count 2.87 x10^6/uL (4.30-5.70) 1.93 x10^6/uL (4.30-5.70) 2.37 x10^6/uL (4.30-5.70) Hemoglobin 8.8 g/dL (13.0-17.5) 6.0 g/dL (13.0-17.5) 7.2 g/dL (13.0-17.5) Hematocrit 25.6 % (39.0-53.0) 17.0 % (39.0-53.0) 20.8 % (39.0-53.0) Mean Corpuscular Volume 89 fL (79-100) 89 fL (79-100) 88 fL (79-100) Mean Corpuscular Hemoglobin 31 pg (25-35) 31 pg (25-35) 30 pg (25-35) Mean Corpuscular Hemoglobin Concent 34 g/dL (31-37) 35 g/dL (31-37) 35 g/dL (31-37) Red Cell Distribution Width 15.5 % (11.5-14.5) 15.4 % (11.5-14.5) 15.5 % (11.5-14.5) Platelet Count 191 x10^3/uL (140-400) 128 x10^3/uL (140-400) 156 x10^3/uL (140-400) Neutrophils (%) (Auto) 87 % (31-73) 77 % (31-73) 76 % (31-73) Lymphocytes (%) (Auto) 6 % (24-48) 12 % (24-48) 11 % (24-48) Monocytes (%) (Auto) 6 % (0-9) 9 % (0-9) 8 % (0-9) Eosinophils (%) (Auto) 1 % (0-3) 2 % (0-3) 4 % (0-3) Basophils (%) (Auto) 1 % (0-3) 1 % (0-3) 1 % (0-3) Neutrophils # (Auto) 9.4 x10^3/uL (1.8-7.7) 3.9 x10^3/uL (1.8-7.7) 3.9 x10^3/uL (1.8-7.7) Lymphocytes # (Auto) 0.7 x10^3/uL (1.0-4.8) 0.6 x10^3/uL (1.0-4.8) 0.6 x10^3/uL (1.0-4.8) Monocytes # (Auto) 0.6 x10^3/uL (0.0-1.1) 0.5 x10^3/uL (0.0-1.1) 0.4 x10^3/uL (0.0-1.1) Eosinophils # (Auto) 0.1 x10^3/uL (0.0-0.7) 0.1 x10^3/uL (0.0-0.7) 0.2 x10^3/uL (0.0-0.7) Basophils # (Auto) 0.1 x10^3/uL (0.0-0.2) 0.0 x10^3/uL (0.0-0.2) 0.0 x10^3/uL (0.0-0.2) Segmented Neutrophils % 82 % (35-66) Lymphocytes % 11 % (24-48) Monocytes % 6 % (0-10) Eosinophils % 1 % (0-5) Platelet Estimate Adequate (ADEQUATE) Prothrombin Time 16.2 SEC (11.7-14.0) Prothromb Time International Ratio 1.3 (0.8-1.1) Sodium Level 135 mmol/L (136-145) 136 mmol/L (136-145) 135 mmol/L (136-145) Potassium Level 3.3 mmol/L (3.5-5.1) 3.7 mmol/L (3.5-5.1) 4.0 mmol/L (3.5-5.1) Chloride Level 95 mmol/L (98-107) 99 mmol/L (98-107) 98 mmol/L (98-107) Carbon Dioxide Level 26 mmol/L (21-32) 26 mmol/L (21-32) 25 mmol/L (21-32) Anion Gap 14 (6-14) 11 (6-14) 12 (6-14) Blood Urea Nitrogen 76 mg/dL (8-26) 68 mg/dL (8-26) 75 mg/dL (8-26) Creatinine 14.7 mg/dL (0.7-1.3) 12.9 mg/dL (0.7-1.3) 14.1 mg/dL (0.7-1.3) Estimated GFR (Cockcroft-Gault) 3.8 4.5 4.0 BUN/Creatinine Ratio 5 (6-20) Glucose Level 101 mg/dL (70-99) 82 mg/dL (70-99) 103 mg/dL (70-99) Calcium Level 6.8 mg/dL (8.5-10.1) 6.2 mg/dL (8.5-10.1) 6.1 mg/dL (8.5-10.1) Total Bilirubin 0.7 mg/dL (0.2-1.0) Aspartate Amino Transf (AST/SGOT) 10 U/L (15-37) Alanine Aminotransferase (ALT/SGPT) 17 U/L (16-63) Alkaline Phosphatase 441 U/L (46-116) Troponin I Quantitative 0.072 ng/mL (0.000-0.055) Total Protein 6.3 g/dL (6.4-8.2) Albumin 2.2 g/dL (3.4-5.0) Albumin/Globulin Ratio 0.5 (1.0-1.7) Lipase 88 U/L (73-393) Body Fluid Source Peritoneal Body Fluid Color Straw Body Fluid Clarity Hazy Body Fluid Nucleated Cells 1330 /cmm (Not Established) Body Fluid Mononuclear WBCs (%) 10 % Body Fluid Polymorphonuclear Cells 90 % Body Fluid Total RBCs Counted 2 /cmm (Not Established) Lactic Acid Level 1.3 mmol/L (0.4-2.0) Laboratory Tests Test 03/30/20 13:10 03/31/20 05:55 White Blood Count 5.1 x10^3/uL (4.0-11.0) 5.2 x10^3/uL (4.0-11.0) Red Blood Count 1.93 x10^6/uL (4.30-5.70) 2.37 x10^6/uL (4.30-5.70) Hemoglobin 6.0 g/dL (13.0-17.5) 7.2 g/dL (13.0-17.5) Hematocrit 17.0 % (39.0-53.0) 20.8 % (39.0-53.0) Mean Corpuscular Volume 89 fL (79-100) 88 fL (79-100) Mean Corpuscular Hemoglobin 31 pg (25-35) 30 pg (25-35) Mean Corpuscular Hemoglobin Concent 35 g/dL (31-37) 35 g/dL (31-37) Red Cell Distribution Width 15.4 % (11.5-14.5) 15.5 % (11.5-14.5) Platelet Count 128 x10^3/uL (140-400) 156 x10^3/uL (140-400) Neutrophils (%) (Auto) 77 % (31-73) 76 % (31-73) Lymphocytes (%) (Auto) 12 % (24-48) 11 % (24-48) Monocytes (%) (Auto) 9 % (0-9) 8 % (0-9) Eosinophils (%) (Auto) 2 % (0-3) 4 % (0-3) Basophils (%) (Auto) 1 % (0-3) 1 % (0-3) Neutrophils # (Auto) 3.9 x10^3/uL (1.8-7.7) 3.9 x10^3/uL (1.8-7.7) Lymphocytes # (Auto) 0.6 x10^3/uL (1.0-4.8) 0.6 x10^3/uL (1.0-4.8) Monocytes # (Auto) 0.5 x10^3/uL (0.0-1.1) 0.4 x10^3/uL (0.0-1.1) Eosinophils # (Auto) 0.1 x10^3/uL (0.0-0.7) 0.2 x10^3/uL (0.0-0.7) Basophils # (Auto) 0.0 x10^3/uL (0.0-0.2) 0.0 x10^3/uL (0.0-0.2) Sodium Level 136 mmol/L (136-145) 135 mmol/L (136-145) Potassium Level 3.7 mmol/L (3.5-5.1) 4.0 mmol/L (3.5-5.1) Chloride Level 99 mmol/L (98-107) 98 mmol/L (98-107) Carbon Dioxide Level 26 mmol/L (21-32) 25 mmol/L (21-32) Anion Gap 11 (6-14) 12 (6-14) Blood Urea Nitrogen 68 mg/dL (8-26) 75 mg/dL (8-26) Creatinine 12.9 mg/dL (0.7-1.3) 14.1 mg/dL (0.7-1.3) Estimated GFR (Cockcroft-Gault) 4.5 4.0 Glucose Level 82 mg/dL (70-99) 103 mg/dL (70-99) Lactic Acid Level 1.3 mmol/L (0.4-2.0) Calcium Level 6.2 mg/dL (8.5-10.1) 6.1 mg/dL (8.5-10.1) Medications Active Scripts Medications Dose Route/Sig Max Daily Dose Days Date Category Renvela (Sevelamer Carbonate) 800 Mg Tablet 800 Mg PO TIDWMEALS 03/29/20 Reported Nephro-Eliu Tablet (Folic Acid/Vitamin B Comp W-C) 0.8 Mg Tablet 0.8 Mg PO DAILY 03/29/20 Reported Levothyroxine Sodium 100 Mcg Tablet 100 Mcg PO DAILYAC 03/29/20 Reported Hydroxyzine Hcl 25 Mg Tablet 25 Mg PO TID 03/29/20 Reported Sensipar (Cinacalcet Hcl) 90 Mg Tablet 90 Mg PO DAILY 03/29/20 Reported Carvedilol (Carvedilol) 12.5 Mg Tablet 12.5 Mg PO BIDWMEALS 03/29/20 Reported Allopurinol 100 Mg Tablet 100 Mg PO DAILY 03/29/20 Reported Calcium (Calcium Carbonate) 500 Mg Tab.chew 1 Tab PO BID PRN 30 03/29/20 Reported Comments CXR: IMPRESSION: 1. Oval opacity at the right tracheobronchial angle could be vascular or adenopathy or mass. Recommend further evaluation with CT chest with contrast. 2. There are right pleural calcifications. 3. Opacity in the right lung base may be scarring. CT chest Impression: There is no suspicious thoracic mass. The finding of concern on chest x-ray exam performed earlier the same day corresponds to a very distended azygos vein which is contrast opacified on this exam. Significant collateral venous structures are noted involving the right axillary and chest wall region. Mediastinal collaterals. Correlate for underlying right subclavian venous occlusive process. Right pleural calcifications. Right posterior basilar density presumably related to atelectasis or scarring. Correlate with previous exams to assess stability. Stability is unknown, interval follow-up CT in 4-6 months with contrast is recommended. Correlate with surgical history. Impression . IMPRESSION: Abnormal Chest Xray- concerning for mass Acute abdominal pain secondary to peritonitis. Hypotension End stage renal disease, on peritoneal dialysis. Cirrhosis and portal hypertension Hypothyroidism. Gout. History of traumatic brain injury. Plan . PLAN: stable from pulmonary standpoint follow up CT - 6 weeks Follow ID rec for ABX, follow cultures Follow nephrology recs Vasopressors for hypotension if need to keep MAP above 65 PT/OT DVT/GI PPX D/W RN Thank you for this consult CARINA BARRAGAN MD Mar 31, 2020 07:24
[2020-03-31] MEDS: ALLOPURINOL 100 MG TABLET. PO SCH (08:29)
[2020-03-31] MEDS: SEVELAMER CARBONATE 800 MG TABLET. PO SCH ×3 (08:29→16:56)
[2020-03-31] MEDS: CARVEDILOL 12.5 MG TABLET. PO SCH (08:30)
[2020-03-31] MEDS: hydrOXYzine 25 MG TABLET PO SCH ×3 (08:30→20:34)
[2020-03-31] MEDS: LACTOBACILLUS RHAMNOSUS GG 1 CAPSULE. PO SCH ×2 (08:30→20:34)
[2020-03-31] MEDS: LEVOTHYROXINE 100 MCG TABLET PO SCH (08:30)
[2020-03-31] MEDS: CINACALCET HCL 30 MG TABLET PO SCH (08:58)
--- NOTE | 2020-03-31 09:01 | PDOC ---
PROGRESS NOTES Chief Complaint Chief Complaint sepsis, with intra-abdominal infection with peritonitis, septic shock yesterday, New finding of chest mass on CAT scan Organomegaly Cirrhosis, liver, End-stage renal disease, on peritoneal dialysis; hypertension; hyperlipidemia, hypothyroidism, gout. History of Present Illness History of Present Illness 03/31, BP improved, vitals better is sitting up eating, feels well will transfer out of ICU, I have ordered LTD US to eval liver and gallbladder better, cirrhosis 03/30/2020 Patient seen and examined Chart reviewed Discussed with RN He is quite ill Vitals Vitals Vital Signs Date Time Temp Pulse Resp B/P (MAP) Pulse Ox O2 Delivery O2 Flow Rate FiO2 03/31/20 08:30 81 131/87 03/31/20 08:00 98.6 16 Room Air 98.6 03/30/20 19:00 98 1.0 Physical Exam General: moderate distress Heart: Regular rate Lungs: Clear Abdomen: Other (Distended tender) Extremities: No clubbing Skin: No rashes Labs LABS Laboratory Tests Test 03/30/20 13:10 03/31/20 05:55 White Blood Count 5.1 x10^3/uL (4.0-11.0) 5.2 x10^3/uL (4.0-11.0) Red Blood Count 1.93 x10^6/uL (4.30-5.70) 2.37 x10^6/uL (4.30-5.70) Hemoglobin 6.0 g/dL (13.0-17.5) 7.2 g/dL (13.0-17.5) Hematocrit 17.0 % (39.0-53.0) 20.8 % (39.0-53.0) Mean Corpuscular Volume 89 fL (79-100) 88 fL (79-100) Mean Corpuscular Hemoglobin 31 pg (25-35) 30 pg (25-35) Mean Corpuscular Hemoglobin Concent 35 g/dL (31-37) 35 g/dL (31-37) Red Cell Distribution Width 15.4 % (11.5-14.5) 15.5 % (11.5-14.5) Platelet Count 128 x10^3/uL (140-400) 156 x10^3/uL (140-400) Neutrophils (%) (Auto) 77 % (31-73) 76 % (31-73) Lymphocytes (%) (Auto) 12 % (24-48) 11 % (24-48) Monocytes (%) (Auto) 9 % (0-9) 8 % (0-9) Eosinophils (%) (Auto) 2 % (0-3) 4 % (0-3) Basophils (%) (Auto) 1 % (0-3) 1 % (0-3) Neutrophils # (Auto) 3.9 x10^3/uL (1.8-7.7) 3.9 x10^3/uL (1.8-7.7) Lymphocytes # (Auto) 0.6 x10^3/uL (1.0-4.8) 0.6 x10^3/uL (1.0-4.8) Monocytes # (Auto) 0.5 x10^3/uL (0.0-1.1) 0.4 x10^3/uL (0.0-1.1) Eosinophils # (Auto) 0.1 x10^3/uL (0.0-0.7) 0.2 x10^3/uL (0.0-0.7) Basophils # (Auto) 0.0 x10^3/uL (0.0-0.2) 0.0 x10^3/uL (0.0-0.2) Sodium Level 136 mmol/L (136-145) 135 mmol/L (136-145) Potassium Level 3.7 mmol/L (3.5-5.1) 4.0 mmol/L (3.5-5.1) Chloride Level 99 mmol/L (98-107) 98 mmol/L (98-107) Carbon Dioxide Level 26 mmol/L (21-32) 25 mmol/L (21-32) Anion Gap 11 (6-14) 12 (6-14) Blood Urea Nitrogen 68 mg/dL (8-26) 75 mg/dL (8-26) Creatinine 12.9 mg/dL (0.7-1.3) 14.1 mg/dL (0.7-1.3) Estimated GFR (Cockcroft-Gault) 4.5 4.0 Glucose Level 82 mg/dL (70-99) 103 mg/dL (70-99) Lactic Acid Level 1.3 mmol/L (0.4-2.0) Calcium Level 6.2 mg/dL (8.5-10.1) 6.1 mg/dL (8.5-10.1) Assessment and Plan Assessmemt and Plan Problems Medical Problems: (1) Abdominal pain Status: Acute (2) Ascites Status: Acute Comment Review of Relevant I have reviewed the following items pablo (where applicable) has been applied. Labs Laboratory Tests Test 03/29/20 11:05 03/29/20 19:55 03/30/20 13:10 03/31/20 05:55 White Blood Count 10.8 x10^3/uL (4.0-11.0) 5.1 x10^3/uL (4.0-11.0) 5.2 x10^3/uL (4.0-11.0) Red Blood Count 2.87 x10^6/uL (4.30-5.70) 1.93 x10^6/uL (4.30-5.70) 2.37 x10^6/uL (4.30-5.70) Hemoglobin 8.8 g/dL (13.0-17.5) 6.0 g/dL (13.0-17.5) 7.2 g/dL (13.0-17.5) Hematocrit 25.6 % (39.0-53.0) 17.0 % (39.0-53.0) 20.8 % (39.0-53.0) Mean Corpuscular Volume 89 fL (79-100) 89 fL (79-100) 88 fL (79-100) Mean Corpuscular Hemoglobin 31 pg (25-35) 31 pg (25-35) 30 pg (25-35) Mean Corpuscular Hemoglobin Concent 34 g/dL (31-37) 35 g/dL (31-37) 35 g/dL (31-37) Red Cell Distribution Width 15.5 % (11.5-14.5) 15.4 % (11.5-14.5) 15.5 % (11.5-14.5) Platelet Count 191 x10^3/uL (140-400) 128 x10^3/uL (140-400) 156 x10^3/uL (140-400) Neutrophils (%) (Auto) 87 % (31-73) 77 % (31-73) 76 % (31-73) Lymphocytes (%) (Auto) 6 % (24-48) 12 % (24-48) 11 % (24-48) Monocytes (%) (Auto) 6 % (0-9) 9 % (0-9) 8 % (0-9) Eosinophils (%) (Auto) 1 % (0-3) 2 % (0-3) 4 % (0-3) Basophils (%) (Auto) 1 % (0-3) 1 % (0-3) 1 % (0-3) Neutrophils # (Auto) 9.4 x10^3/uL (1.8-7.7) 3.9 x10^3/uL (1.8-7.7) 3.9 x10^3/uL (1.8-7.7) Lymphocytes # (Auto) 0.7 x10^3/uL (1.0-4.8) 0.6 x10^3/uL (1.0-4.8) 0.6 x10^3/uL (1.0-4.8) Monocytes # (Auto) 0.6 x10^3/uL (0.0-1.1) 0.5 x10^3/uL (0.0-1.1) 0.4 x10^3/uL (0.0-1.1) Eosinophils # (Auto) 0.1 x10^3/uL (0.0-0.7) 0.1 x10^3/uL (0.0-0.7) 0.2 x10^3/uL (0.0-0.7) Basophils # (Auto) 0.1 x10^3/uL (0.0-0.2) 0.0 x10^3/uL (0.0-0.2) 0.0 x10^3/uL (0.0-0.2) Segmented Neutrophils % 82 % (35-66) Lymphocytes % 11 % (24-48) Monocytes % 6 % (0-10) Eosinophils % 1 % (0-5) Platelet Estimate Adequate (ADEQUATE) Prothrombin Time 16.2 SEC (11.7-14.0) Prothromb Time International Ratio 1.3 (0.8-1.1) Sodium Level 135 mmol/L (136-145) 136 mmol/L (136-145) 135 mmol/L (136-145) Potassium Level 3.3 mmol/L (3.5-5.1) 3.7 mmol/L (3.5-5.1) 4.0 mmol/L (3.5-5.1) Chloride Level 95 mmol/L (98-107) 99 mmol/L (98-107) 98 mmol/L (98-107) Carbon Dioxide Level 26 mmol/L (21-32) 26 mmol/L (21-32) 25 mmol/L (21-32) Anion Gap 14 (6-14) 11 (6-14) 12 (6-14) Blood Urea Nitrogen 76 mg/dL (8-26) 68 mg/dL (8-26) 75 mg/dL (8-26) Creatinine 14.7 mg/dL (0.7-1.3) 12.9 mg/dL (0.7-1.3) 14.1 mg/dL (0.7-1.3) Estimated GFR (Cockcroft-Gault) 3.8 4.5 4.0 BUN/Creatinine Ratio 5 (6-20) Glucose Level 101 mg/dL (70-99) 82 mg/dL (70-99) 103 mg/dL (70-99) Calcium Level 6.8 mg/dL (8.5-10.1) 6.2 mg/dL (8.5-10.1) 6.1 mg/dL (8.5-10.1) Total Bilirubin 0.7 mg/dL (0.2-1.0) Aspartate Amino Transf (AST/SGOT) 10 U/L (15-37) Alanine Aminotransferase (ALT/SGPT) 17 U/L (16-63) Alkaline Phosphatase 441 U/L (46-116) Troponin I Quantitative 0.072 ng/mL (0.000-0.055) Total Protein 6.3 g/dL (6.4-8.2) Albumin 2.2 g/dL (3.4-5.0) Albumin/Globulin Ratio 0.5 (1.0-1.7) Lipase 88 U/L (73-393) Body Fluid Source Peritoneal Body Fluid Color Straw Body Fluid Clarity Hazy Body Fluid Nucleated Cells 1330 /cmm (Not Established) Body Fluid Mononuclear WBCs (%) 10 % Body Fluid Polymorphonuclear Cells 90 % Body Fluid Total RBCs Counted 2 /cmm (Not Established) Lactic Acid Level 1.3 mmol/L (0.4-2.0) Laboratory Tests Test 03/30/20 13:10 03/31/20 05:55 White Blood Count 5.1 x10^3/uL (4.0-11.0) 5.2 x10^3/uL (4.0-11.0) Red Blood Count 1.93 x10^6/uL (4.30-5.70) 2.37 x10^6/uL (4.30-5.70) Hemoglobin 6.0 g/dL (13.0-17.5) 7.2 g/dL (13.0-17.5) Hematocrit 17.0 % (39.0-53.0) 20.8 % (39.0-53.0) Mean Corpuscular Volume 89 fL (79-100) 88 fL (79-100) Mean Corpuscular Hemoglobin 31 pg (25-35) 30 pg (25-35) Mean Corpuscular Hemoglobin Concent 35 g/dL (31-37) 35 g/dL (31-37) Red Cell Distribution Width 15.4 % (11.5-14.5) 15.5 % (11.5-14.5) Platelet Count 128 x10^3/uL (140-400) 156 x10^3/uL (140-400) Neutrophils (%) (Auto) 77 % (31-73) 76 % (31-73) Lymphocytes (%) (Auto) 12 % (24-48) 11 % (24-48) Monocytes (%) (Auto) 9 % (0-9) 8 % (0-9) Eosinophils (%) (Auto) 2 % (0-3) 4 % (0-3) Basophils (%) (Auto) 1 % (0-3) 1 % (0-3) Neutrophils # (Auto) 3.9 x10^3/uL (1.8-7.7) 3.9 x10^3/uL (1.8-7.7) Lymphocytes # (Auto) 0.6 x10^3/uL (1.0-4.8) 0.6 x10^3/uL (1.0-4.8) Monocytes # (Auto) 0.5 x10^3/uL (0.0-1.1) 0.4 x10^3/uL (0.0-1.1) Eosinophils # (Auto) 0.1 x10^3/uL (0.0-0.7) 0.2 x10^3/uL (0.0-0.7) Basophils # (Auto) 0.0 x10^3/uL (0.0-0.2) 0.0 x10^3/uL (0.0-0.2) Sodium Level 136 mmol/L (136-145) 135 mmol/L (136-145) Potassium Level 3.7 mmol/L (3.5-5.1) 4.0 mmol/L (3.5-5.1) Chloride Level 99 mmol/L (98-107) 98 mmol/L (98-107) Carbon Dioxide Level 26 mmol/L (21-32) 25 mmol/L (21-32) Anion Gap 11 (6-14) 12 (6-14) Blood Urea Nitrogen 68 mg/dL (8-26) 75 mg/dL (8-26) Creatinine 12.9 mg/dL (0.7-1.3) 14.1 mg/dL (0.7-1.3) Estimated GFR (Cockcroft-Gault) 4.5 4.0 Glucose Level 82 mg/dL (70-99) 103 mg/dL (70-99) Lactic Acid Level 1.3 mmol/L (0.4-2.0) Calcium Level 6.2 mg/dL (8.5-10.1) 6.1 mg/dL (8.5-10.1) Microbiology 03/29/20 Gram Stain - Final, Resulted 03/29/20 Aerobic and Anaerobic Culture, Resulted Pending Medications Current Medications Fentanyl Citrate (Fentanyl 2ml Vial) 50 mcg 1X ONCE IVP Last administered on 03/29/20at 11:56; Start 03/29/20 at 11:30; Stop 03/29/20 at 11:31; Status DC Sodium Chloride 500 ml @ 500 mls/hr 1X ONCE IV Last administered on 03/29/20at 12:56; Start 03/29/20 at 12:30; Stop 03/29/20 at 13:29; Status DC Iohexol (Omnipaque 300 Mg/ml) 75 ml 1X ONCE IV Last administered on 03/29/20at 12:44; Start 03/29/20 at 12:45; Stop 03/29/20 at 12:46; Status DC Info (CONTRAST GIVEN -- Rx MONITORING) 1 each PRN DAILY PRN MC SEE COMMENTS; Start 03/29/20 at 12:45; Stop 03/31/20 at 12:44 Allopurinol (Zyloprim) 100 mg DAILY PO Last administered on 03/31/20 08:29; Start 03/30/20 at 09:00 Carvedilol (Coreg) 12.5 mg BIDWMEALS PO Last administered on 03/31/20 08:30; Start 03/29/20 at 18:00 Hydroxyzine HCl (Atarax) 25 mg TID PO Last administered on 03/31/20 08:30; Sta rt 03/29/20 at 21:00 Levothyroxine Sodium (Synthroid) 100 mcg DAILYAC PO Last administered on 03/31/20 08:30; Start 03/30/20 at 07:30 Sevelamer Carbonate (Renvela) 800 mg TIDWMEALS PO Last administered on 03/31/20 08:29; Start 03/29/20 at 18:00 Calcium Carbonate/ Glycine (Oscal) 500 mg PRN BID PRN PO DYSPEPSIA; Start 03/29/20 at 18:00 Cinacalcet (Sensipar) 90 mg DAILY PO Last administered on 03/30/20at 08:12; Start 03/30/20 at 09:00 Acetaminophen/ Hydrocodone Bitart (Lortab 5/325) 1 tab PRN Q4HRS PRN PO PAIN L ast administered on 03/30/20 18:00; Start 03/29/20 at 18:15 Potassium Chloride (Klor-Con) 40 meq 1X ONCE PO Last administered on 03/29/20at 18:58; Start 03/29/20 at 18:15; Stop 03/29/20 at 18:20; Status DC Vancomycin HCl (Vanco Per Pharmacy) 1 each PRN DAILY PRN MC SEE COMMENTS Last administered on 03/30/20at 13:16; Start 03/29/20 at 20:15 Vancomycin HCl 1.75 gm/Sodium Chloride 500 ml @ 250 mls/hr 1X ONCE IV Last administered on 03/29/20at 23:24; Start 03/29/20 at 23:00; Stop 03/30/20 at 00:59; Status DC Piperacillin Sod/ Tazobactam Sod 2.25 gm/Sodium Chloride 50 ml @ 100 mls/hr Q8HRS IV Last administered on 03/31/20at 06:23; Start 03/29/20 at 22:00 Vancomycin HCl (Vancomycin Random Level) 1 each 1X ONCE MC ; Start 04/01/20 at 05:00; Stop 04/01/20 at 05:01 Sodium Chloride 250 ml @ 250 mls/hr 1X ONCE IV Last administered on 03/30/20at 11:07; Start 03/30/20 at 11:15; Stop 03/30/20 at 12:14; Status DC Sodium Chloride 1,000 ml @ 50 mls/hr 1X ONCE IV Last administered on 03/30/20at 11:11; Start 03/30/20 at 11:15; Stop 03/31/20 at 07:14; Status DC Sodium Chloride 250 ml @ 250 mls/hr 1X ONCE IV Last administered on 03/30/20at 11:35; Start 03/30/20 at 11:30; Stop 03/30/20 at 12:58; Status DC Norepinephrine Bitartrate 8 mg/ Dextrose 258 ml @ 12.5 mls/hr CONT PRN IV PER PROTOCOL Last administered on 03/30/20at 15:42; Start 03/30/20 at 13:00 Lactobacillus Rhamnosus (Culturelle) 1 cap BID PO Last administered on 03/31/20at 08:30; Start 03/30/20 at 21:00 Active Scripts Active Reported Renvela (Sevelamer Carbonate) 800 Mg Tablet 800 Mg PO TIDWMEALS Nephro-Eliu Tablet (Folic Acid/Vitamin B Comp W-C) 0.8 Mg Tablet 0.8 Mg PO DAILY Levothyroxine Sodium 100 Mcg Tablet 100 Mcg PO DAILYAC Hydroxyzine Hcl 25 Mg Tablet 25 Mg PO TID Sensipar (Cinacalcet Hcl) 90 Mg Tablet 90 Mg PO DAILY Carvedilol (Carvedilol) 12.5 Mg Tablet 12.5 Mg PO BIDWMEALS Allopurinol 100 Mg Tablet 100 Mg PO DAILY Calcium (Calcium Carbonate) 500 Mg Tab.chew 1 Tab PO BID PRN 30 Days Vitals/I & O Vital Sign - Last 24 Hours 03/30/20 03/30/20 03/30/20 03/30/20 11:03 11:30 11:50 12:13 Temp 98.5 98.5 Pulse 82 81 85 Resp 16 B/P (MAP) 79/47 (58) 81/49 (60) 96/61 (73) Pulse Ox 94 O2 Delivery Nasal Cannula Nasal Cannula O2 Flow Rate 1.0 03/30/20 03/30/20 03/30/20 03/30/20 12:30 13:30 13:30 13:45 Temp 98.0 98.0 Pulse 83 78 78 Resp 20 19 17 B/P (MAP) 80/47 (58) 85/52 (63) 79/47 (58) Pulse Ox 98 O2 Delivery Room Air 03/30/20 03/30/20 03/30/20 03/30/20 14:00 14:15 17:00 17:13 Temp 97.8 97.8 Pulse 78 74 76 65 Resp 15 14 15 B/P (MAP) 74/50 (58) 83/50 (61) 88/62 84/59 03/30/20 03/30/20 03/30/20 03/30/20 18:00 19:00 19:00 20:00 Temp 98.6 98.6 Pulse 73 73 Resp 15 16 16 B/P (MAP) 96/61 (73) 135/76 (95) Pulse Ox 98 99 98 O2 Delivery Room Air Room Air Room Air Room Air O2 Flow Rate 1.0 03/30/20 03/30/20 03/30/20 03/30/20 20:00 21:00 21:00 22:00 Temp 98.6 98.6 Pulse 75 73 81 Resp 15 15 15 B/P (MAP) 99/72 (81) 135/76 95/66 (76) O2 Delivery Room Air Room Air Room Air 03/30/20 03/31/20 03/31/20 03/31/20 23:00 00:00 00:00 01:00 Temp 98.7 98.7 Pulse 71 73 78 Resp 15 15 15 B/P (MAP) 99/66 (77) 91/55 (67) 86/56 (66) O2 Delivery Room Air Room Air Room Air Room Air 03/31/20 03/31/20 03/31/20 03/31/20 02:00 03:00 04:00 05:00 Temp 98.7 98.7 Pulse 80 79 80 82 Resp 15 18 18 18 B/P (MAP) 83/48 (60) 94/60 (71) 99/67 (78) 86/53 (64) O2 Delivery Room Air Room Air Room Air Room Air 03/31/20 03/31/20 03/31/20 03/31/20 06:00 07:00 08:00 08:00 Temp 98.6 98.6 Pulse 81 89 80 Resp 18 16 16 B/P (MAP) 94/64 (74) 102/70 (81) 131/87 (102) O2 Delivery Room Air Room Air Room Air Room Air 03/31/20 08:30 Pulse 81 B/P (MAP) 131/87 Intake and Output 03/30/20 03/30/20 03/31/20 15:00 23:00 07:00 Intake Total 350 ml 75 ml Output Total 0 ml 0 ml Balance 350 ml 75 ml 0 ml Justicifation of Admission Dx: Justifications for Admission: Justification of Admission Dx: Yes KANNAN ABARCA MD Mar 31, 2020 09:01
--- NOTE | 2020-03-31 09:16 | PDOC ---
Infectious Disease Note Subjective Subjective Comfortable, denies pain Eating Wants to take a shower No F/C/aches/N/V/SOA Off levophed ROS ROS as mentioned above Vital Sign Vital Signs Vital Signs Date Time Temp Pulse Resp B/P (MAP) Pulse Ox O2 Delivery O2 Flow Rate FiO2 03/31/20 09:00 86 15 117/83 (94) Room Air 03/31/20 08:00 98.6 98.6 03/30/20 19:00 98 1.0 Physical Exam PHYSICAL EXAM GENERAL: Sitting upright in bed, eating, HEENT: Pupils equally round and reactive. Oropharynx pink and moist. No lesions seen. NECK: Supple. LUNGS: Clear to auscultation. HEART: S1, S2. regular ABDOMEN: Mildly distended, soft, nontender. PD catheter intact. Bowel sounds present. EXTREMITIES: No gross edema or cyanosis. He has large area of bruising right lower extremity stable. Left wrist splint remains in place, fingers warm SKIN: Warm to touch. No signs of rash. Viscosities back area. NEUROLOGIC: Alert and answering questions appropriately. PIVs ok Labs Lab Laboratory Tests Test 03/30/20 13:10 03/31/20 05:55 White Blood Count 5.1 x10^3/uL (4.0-11.0) 5.2 x10^3/uL (4.0-11.0) Red Blood Count 1.93 x10^6/uL (4.30-5.70) 2.37 x10^6/uL (4.30-5.70) Hemoglobin 6.0 g/dL (13.0-17.5) 7.2 g/dL (13.0-17.5) Hematocrit 17.0 % (39.0-53.0) 20.8 % (39.0-53.0) Mean Corpuscular Volume 89 fL (79-100) 88 fL (79-100) Mean Corpuscular Hemoglobin 31 pg (25-35) 30 pg (25-35) Mean Corpuscular Hemoglobin Concent 35 g/dL (31-37) 35 g/dL (31-37) Red Cell Distribution Width 15.4 % (11.5-14.5) 15.5 % (11.5-14.5) Platelet Count 128 x10^3/uL (140-400) 156 x10^3/uL (140-400) Neutrophils (%) (Auto) 77 % (31-73) 76 % (31-73) Lymphocytes (%) (Auto) 12 % (24-48) 11 % (24-48) Monocytes (%) (Auto) 9 % (0-9) 8 % (0-9) Eosinophils (%) (Auto) 2 % (0-3) 4 % (0-3) Basophils (%) (Auto) 1 % (0-3) 1 % (0-3) Neutrophils # (Auto) 3.9 x10^3/uL (1.8-7.7) 3.9 x10^3/uL (1.8-7.7) Lymphocytes # (Auto) 0.6 x10^3/uL (1.0-4.8) 0.6 x10^3/uL (1.0-4.8) Monocytes # (Auto) 0.5 x10^3/uL (0.0-1.1) 0.4 x10^3/uL (0.0-1.1) Eosinophils # (Auto) 0.1 x10^3/uL (0.0-0.7) 0.2 x10^3/uL (0.0-0.7) Basophils # (Auto) 0.0 x10^3/uL (0.0-0.2) 0.0 x10^3/uL (0.0-0.2) Sodium Level 136 mmol/L (136-145) 135 mmol/L (136-145) Potassium Level 3.7 mmol/L (3.5-5.1) 4.0 mmol/L (3.5-5.1) Chloride Level 99 mmol/L (98-107) 98 mmol/L (98-107) Carbon Dioxide Level 26 mmol/L (21-32) 25 mmol/L (21-32) Anion Gap 11 (6-14) 12 (6-14) Blood Urea Nitrogen 68 mg/dL (8-26) 75 mg/dL (8-26) Creatinine 12.9 mg/dL (0.7-1.3) 14.1 mg/dL (0.7-1.3) Estimated GFR (Cockcroft-Gault) 4.5 4.0 Glucose Level 82 mg/dL (70-99) 103 mg/dL (70-99) Lactic Acid Level 1.3 mmol/L (0.4-2.0) Calcium Level 6.2 mg/dL (8.5-10.1) 6.1 mg/dL (8.5-10.1) Micro GRAM STAIN Final Final NO ORGANISMS SEEN. SQUAMOUS EPI CELL:NOT APPLICABLE PMN (WBCs):MANY ANAEROBIC-AEROBIC CULTURE PENDING Objective Assessment Acute abdominal pain Peritonitis -Peritoneal fl: cell count 1330. no organisms on gram stain. cx pending -H/o STCN peritionitis at [facility]. Hypotension x 2 IVF boluses, now off levophed CKD on peritoneal dialysis ANemia s/p PRBCs, 7/ Cirrhosis and portal hypertension on Ct scan Hypothyroidism Gout h/o TBI Plan Plan of Care Vancomycin and Zosyn Probiotics f/u peritoneal fl culture f/u BC Maintain aspiration precautions Pain management per primary D/w nursing Patient discussed with EVENT SET UP SPECIALIST. Chart reviewed in detail. Above plan co-formulated and agreed upon with EVENT SET UP SPECIALIST on 03/31/2020. SUSANNA JONES APRN Mar 31, 2020 09:16 MAICO BARRIOS MD Apr 01, 2020 19:47
--- NOTE | 2020-03-31 11:02 | PDOC ---
SUBJECTIVE ROS Held PD last night- was transferred to ICU for Hypotension requiring pressors Off pressors now ,Denies abdominal pain OBJECTIVE Vital Signs Vital Signs Date Time Temp Pulse Resp B/P (MAP) Pulse Ox O2 Delivery O2 Flow Rate FiO2 03/31/20 10:00 71 16 119/78 (92) Room Air 03/31/20 08:00 98.6 98.6 03/30/20 19:00 98 1.0 I & 0 Intake and Output 03/31/20 07:00 Intake Total 425 ml Output Total 0 ml Balance 425 ml Intake Oral 325 ml IV Total 50 ml Blood Product IV Normal Saline Flush 50 ml Output Urine Total 0 ml PHYSICAL EXAM Physical Exam GENERAL: NAD HEENT: OM moist. NECK: Supple. LUNGS: Clear to auscultation. HEART: S1, S2. regular ABDOMEN: , soft, nontender. PD catheter intact. Bowel sounds present. EXTREMITIES: No gross edema or cyanosis.Pigmentation RT LE SKIN: No signs of rash. NEUROLOGIC: Alert and answering questions appropriately. DIAGNOSIS/ASSESSMENT Assessment & Plan ESRD- On PD Dialysis held last night 2/2 Hypotension PD fauzia corrales Abdominal pain- CT abdomen done 10/30 Peritonitis Culture pending, Currently on Abx Hypotension - Transferred to ICU requiring pressors Currently Off pressors and stable Anemia- baseline unknown Splenomegaly on CT Cirrhosis and portal vein hypertension- On CT , pt denies Etoh use Possible lower pole right renal mass. Renal cyst versus calcified aneurysm of the upper right kidney. Oval opacity at the right tracheobronchial angle on Cxr CT chest with contrast - no suspicious thoracic mass. corresponds to a very distended azygos vein . Significant collateral venous structures are noted involving the right axillary and chest wall region. Mediastinal collaterals. Correlate for underlying right subclavian venous occlusive process. COMMENT/RELEVANT DATA Meds Current Medications Medications (Trade) Dose Ordered Sig/Corky Start Time Stop Time Status Last Admin Dose Admin Acetaminophen/ Hydrocodone Bitart (Lortab 5/325) 1 tab PRN Q4HRS PRN 03/29/20 18:15 03/30/20 18:00 1 TAB Allopurinol (Zyloprim) 100 mg DAILY 03/30/20 09:00 03/31/20 08:29 100 MG Calcium Carbonate/ Glycine (Oscal) 500 mg PRN BID PRN 03/29/20 18:00 Carvedilol (Coreg) 12.5 mg BIDWMEALS 03/29/20 18:00 03/31/20 08:30 12.5 MG Cinacalcet (Sensipar) 90 mg DAILY 03/30/20 09:00 03/30/20 08:12 90 MG Fentanyl Citrate (Fentanyl 2ml Vial) 50 mcg 1X ONCE 03/29/20 11:30 03/29/20 11:31 DC 03/29/20 11:56 50 MCG Hydroxyzine HCl (Atarax) 25 mg TID 03/29/20 21:00 03/31/20 08:30 25 MG Info (CONTRAST GIVEN -- Rx MONITORING) 1 each PRN DAILY PRN 03/29/20 12:45 03/31/20 12:44 Iohexol (Omnipaque 300 Mg/ml) 75 ml 1X ONCE 03/29/20 12:45 03/29/20 12:46 DC 03/29/20 12:44 75 ML Lactobacillus Rhamnosus (Culturelle) 1 cap BID 03/30/20 21:00 03/31/20 08:30 1 CAP Levothyroxine Sodium (Synthroid) 100 mcg DAILYAC 03/30/20 07:30 03/31/20 08:30 100 MCG Norepinephrine Bitartrate 8 mg/ Dextrose 258 ml @ 12.5 mls/hr CONT PRN 03/30/20 13:00 03/30/20 15:42 18.5 MLS/HR Piperacillin Sod/ Tazobactam Sod 2.25 gm/Sodium Chloride 50 ml @ 100 mls/hr Q8HRS 03/29/20 22:00 03/31/20 06:23 100 MLS/HR Potassium Chloride (Klor-Con) 40 meq 1X ONCE 03/29/20 18:15 03/29/20 18:20 DC 03/29/20 18:58 40 MEQ Sevelamer Carbonate (Renvela) 800 mg TIDWMEALS 03/29/20 18:00 03/31/20 08:29 800 MG Sodium Chloride 250 ml @ 250 mls/hr 1X ONCE 03/30/20 11:30 03/30/20 12:58 DC 03/30/20 11:35 250 MLS/HR Vancomycin HCl (Vanco Per Pharmacy) 1 each PRN DAILY PRN 03/29/20 20:15 03/30/20 13:16 1 EACH Vancomycin HCl (Vancomycin Random Level) 1 each 1X ONCE 04/01/20 05:00 04/01/20 05:01 Vancomycin HCl 1.75 gm/Sodium Chloride 500 ml @ 250 mls/hr 1X ONCE 03/29/20 23:00 03/30/20 00:59 DC 03/29/20 23:24 250 MLS/HR Lab Laboratory Tests Test 03/30/20 13:10 03/31/20 05:55 White Blood Count 5.1 x10^3/uL (4.0-11.0) 5.2 x10^3/uL (4.0-11.0) Red Blood Count 1.93 x10^6/uL (4.30-5.70) 2.37 x10^6/uL (4.30-5.70) Hemoglobin 6.0 g/dL (13.0-17.5) 7.2 g/dL (13.0-17.5) Hematocrit 17.0 % (39.0-53.0) 20.8 % (39.0-53.0) Mean Corpuscular Volume 89 fL (79-100) 88 fL (79-100) Mean Corpuscular Hemoglobin 31 pg (25-35) 30 pg (25-35) Mean Corpuscular Hemoglobin Concent 35 g/dL (31-37) 35 g/dL (31-37) Red Cell Distribution Width 15.4 % (11.5-14.5) 15.5 % (11.5-14.5) Platelet Count 128 x10^3/uL (140-400) 156 x10^3/uL (140-400) Neutrophils (%) (Auto) 77 % (31-73) 76 % (31-73) Lymphocytes (%) (Auto) 12 % (24-48) 11 % (24-48) Monocytes (%) (Auto) 9 % (0-9) 8 % (0-9) Eosinophils (%) (Auto) 2 % (0-3) 4 % (0-3) Basophils (%) (Auto) 1 % (0-3) 1 % (0-3) Neutrophils # (Auto) 3.9 x10^3/uL (1.8-7.7) 3.9 x10^3/uL (1.8-7.7) Lymphocytes # (Auto) 0.6 x10^3/uL (1.0-4.8) 0.6 x10^3/uL (1.0-4.8) Monocytes # (Auto) 0.5 x10^3/uL (0.0-1.1) 0.4 x10^3/uL (0.0-1.1) Eosinophils # (Auto) 0.1 x10^3/uL (0.0-0.7) 0.2 x10^3/uL (0.0-0.7) Basophils # (Auto) 0.0 x10^3/uL (0.0-0.2) 0.0 x10^3/uL (0.0-0.2) Sodium Level 136 mmol/L (136-145) 135 mmol/L (136-145) Potassium Level 3.7 mmol/L (3.5-5.1) 4.0 mmol/L (3.5-5.1) Chloride Level 99 mmol/L (98-107) 98 mmol/L (98-107) Carbon Dioxide Level 26 mmol/L (21-32) 25 mmol/L (21-32) Anion Gap 11 (6-14) 12 (6-14) Blood Urea Nitrogen 68 mg/dL (8-26) 75 mg/dL (8-26) Creatinine 12.9 mg/dL (0.7-1.3) 14.1 mg/dL (0.7-1.3) Estimated GFR (Cockcroft-Gault) 4.5 4.0 Glucose Level 82 mg/dL (70-99) 103 mg/dL (70-99) Lactic Acid Level 1.3 mmol/L (0.4-2.0) Calcium Level 6.2 mg/dL (8.5-10.1) 6.1 mg/dL (8.5-10.1) Results All relevant outside records, renal labs, imaging studies, telemetry/EKG's were reviewed. Justicifation of Admission Dx: Justifications for Admission: Justification of Admission Dx: Yes KODAK RICHEY MD Mar 31, 2020 11:02
--- NOTE | 2020-03-31 12:37 | CONS ---
DATE OF CONSULTATION: 03/31/2020 PULMONARY CONSULTATION REQUESTING PHYSICIAN: Mary Solano DO HISTORY OF PRESENT ILLNESS: This is a 34-year-old male who presented to the Emergency Department with abdominal pain. He also had some reported shortness of breath and a chest x-ray was obtained in the Emergency Department. His initial chest x-ray showed an oval opacity in the right tracheobronchial angle, which could be vascular or adenopathy or mass and recommended a CT of the chest. At that point in time, a pulmonary consultation was obtained and a subsequent CT of the chest was obtained. His CT of chest showed that there was no suspicious thoracic mass and that the concern in the chest x-ray exam performed earlier the same day corresponded with a very distended azygous vein. On examination, the patient is resting comfortably in bed without any acute signs and symptoms of distress. He denies any shortness of breath, chest pain, headache, dizziness, abdominal pain, changes in bowel or bladder. He reports that he is feeling much better. PAST MEDICAL HISTORY: End-stage renal disease, on peritoneal dialysis, hypertension, hyperlipidemia, hypothyroidism, gout. ALLERGIES: None. PAST SURGICAL HISTORY: Fistula placement. SOCIAL HISTORY: He denies any tobacco use, alcohol use, recreational drug use and reports that he lives at home by himself and is not currently employed. FAMILY HISTORY: There is a family history on his maternal and paternal side of diabetes. MEDICATIONS: Reviewed per the [facility]. REVIEW OF SYSTEMS: A 14-point review of systems was reviewed with the patient that is negative except for pertinent positives in the HPI. PHYSICAL EXAMINATION: VITAL SIGNS: Temperature is 98.7, heart rate is 78, respiratory rate is 18, blood pressure is 99/67, 98% on room air. HEENT: Normocephalic, atraumatic. GENERAL APPEARANCE: No apparent distress, alert and oriented. NECK: Supple, no JVD. No thyromegaly. HEART: Regular rate and rhythm, S1 and S2 present. Peripheral pulses +2. LUNGS: Clear to auscultation in all lung manzo without rhonchi or wheezing. ABDOMEN: He has some abdominal distention/ascites. No guarding or tenderness. EXTREMITIES: Without any clubbing, cyanosis, or edema. NEUROLOGICAL: He is alert and oriented x 3, able to move all extremities with normal speech. ASSESSMENT: 1. Acute abdominal pain secondary to peritonitis. 2. Hypotension. 3. Chronic kidney disease/end-stage renal disease, on peritoneal dialysis. 4. Cirrhosis and portal hypertension on CT scan. 5. Hypothyroidism. 6. Gout. 7. History of traumatic brain injury. 8. Abnormal chest x-ray. PLAN: 1. Antibiotics per Infectious Disease. 2. Nephrology following and follow recommendations for continued hemodialysis/peritoneal dialysis. 3. Follow cultures. 4. IV fluids, vasopressors if needed to keep MAP greater than 65. 5. Followup CT in 4-6 weeks. 6. Physical therapy/occupational therapy. 7. Discussed with RN. Thank you for this consultation and asking us to participate in this patient's care. We will follow along. If you have any questions, please feel free to call. CARINA BARRAGAN MD DR: ERIKA/patric JOB#: [id number] / [id number]
[2020-03-31] MEDS: VANCOMYCIN PER PHARMACY MC PRN (13:03)
--- NOTE | 2020-03-31 15:44 | NUR ---
Patient transferred to 4N at this time. Patient walked to the bed unassisted by staff. When in bed patients nurse Tamara was at bedside getting him situated. Bed alarm set and call light within reach.
--- NOTE | 2020-03-31 16:10 | NUR ---
Assumed care of patient in room 410 , Erasmo Hannah at approximately 1545. Patient in bed, locked, call light by hand. Patient verbalized want for chicken sandwhich. Sandwhich ordered. Will continue to monitor.
[2020-03-31] MEDS: CARVEDILOL 3.125 MG TABLET. PO SCH (16:56)
--- NOTE | 2020-03-31 18:46 | RAD ---
Exam: Ultrasound abdomen limited Indication: Evaluate liver for cirrhosis and gallbladder. Elevated LFTs. Technique: Real-time grayscale and color Doppler images of the right upper quadrant were obtained by the department software systems architect. Comparisons: 03/29/2020 FINDINGS: Liver contour is normal. Hepatopedal flow in the portal vein. Gallbladder is decompressed. No gallstones. No pericholecystic fluid or wall thickening. Right kidney is atrophic measuring 6.2 cm in length. No hydronephrosis. Visualized portions of aorta and IVC are unremarkable. Trace amount of perihepatic ascites is noted. IMPRESSION: 1. Normal sonographic appearance of the liver. Trace perihepatic ascites. 2. Normal sonographic appearance of the gallbladder. No evidence for acute cholecystitis. 3. No right-sided hydronephrosis. Electronically signed by: Myles Ernst MD (03/31/2020 6:43 PM) [id number]
[2020-03-31] MEDS ORDERED: DARBEPOETIN ALFA 40 MCG/0.4 ML DISP.SYRIN. SQ SCH (21:00)
[2020-04-01] VITALS (11 sets, daily range): BP systolic 74–114; BP diastolic 44–76
[2020-04-01] MEDS ORDERED: VANCOMYCIN RANDOM LEVEL. MC ONE (05:00)
[2020-04-01] MEDS: LEVOTHYROXINE 100 MCG TABLET PO SCH (05:48)
[2020-04-01] MEDS: PIPERACILLIN/TAZOBACTAM 2.25 GM in IV NORMAL SALINE 50ML 50 ML IV SCH ×3 (05:48→21:35)
[2020-04-01] MEDS: CARVEDILOL 3.125 MG TABLET. PO SCH ×2 (08:00→17:00)
[2020-04-01 08:01] LABS: BASO % 1 % (0-3); EOS # 0.2 x10^3/uL (0.0-0.7); EOS % 4 % (0-3); LYMPH # 0.5 x10^3/uL (1.0-4.8); LYMPH % 12 % (24-48); MEAN CORPUSCULAR HEMOGLOBIN 30 pg (25-35); MEAN CORPUSCULAR HGB CONC 35 g/dL (31-37); MEAN CORPUSCULAR VOLUME 88 fL (79-100); MONO # 0.3 x10^3/uL (0.0-1.1); MONO % 8 % (0-9); NEUT # 3.2 x10^3/uL (1.8-7.7); NEUT % 75 % (31-73); PLATELET COUNT 152 x10^3/uL (140-400); RED BLOOD COUNT 2.26 x10^6/uL (4.30-5.70); RED CELL DISTRIBUTION WIDTH 15.7 % (11.5-14.5); WHITE BLOOD COUNT 4.3 x10^3/uL (4.0-11.0)
[2020-04-01 08:05] LABS: HEMATOCRIT 19.8 % (39.0-53.0); HEMOGLOBIN 6.8 g/dL (13.0-17.5)
[2020-04-01 08:11] LABS: ALBUMIN 1.4 g/dL (3.4-5.0); ALBUMIN/GLOBULIN RATIO 0.3 (1.0-1.7); CALCIUM 6.9 mg/dL (8.5-10.1); CREATININE 13.1 mg/dL (0.7-1.3); GFR 4.4; POTASSIUM 3.7 mmol/L (3.5-5.1); TOTAL BILIRUBIN 0.5 mg/dL (0.2-1.0); TOTAL PROTEIN 5.8 g/dL (6.4-8.2)
--- NOTE | 2020-04-01 08:33 | EKG ---
[facility] [address] [place] [id number] Test Date: 2020-03-29 Test Time: 11:22:45 Pat Name: RADAMES TANNER Department: Room: Gender: M Mix Maker: : 1985 Requested By: RONEY GALINDO Order Number: [id number] Reading MD: Measurements Intervals [place] Rate: 94 P: 39 HI: 166 QRS: 43 QRSD: 98 T: 50 QT: 394 QTc: 493 Interpretive Statements SINUS RHYTHM VENTRICULAR PREMATURE COMPLEX(ES) ATRIAL PREMATURE COMPLEX(ES) LEFT ATRIAL ABNORMALITY LOW LIMB LEAD VOLTAGE QRS(T) CONTOUR ABNORMALITY CONSIDER INFERIOR MYOCARDIAL DAMAGE PROLONGED QT ABNORMAL ECG RI6.02 No previous ECG available for comparison
[2020-04-01] MEDS: VANCOMYCIN PER PHARMACY MC PRN (08:40)
--- NOTE | 2020-04-01 08:41 | NUR ---
Pharmacy Vancomycin Dosing Note S: Consulted to monitor and dose vancomycin started 03/29/20. O: RADAMES TANNER is a 34 year old M with , PERITONITIS . Other Antibiotics: ZOSYN LABS: Creatinine Clearance: PERITONEAL DIALYSIS Last WBC: 4.3 Drug Levels: Last Random level: 22.1 on 04/01/20 at 0745 Last dose given 03/29/20 at 2330 Vancomycin Dosing: per levels Target Trough: 10-20 A: Based on: VANCO dosing guidelines P: 1. Repeat Random level on 04/03/20 at 0500 2. Pharmacy will continue to monitor, follow and adjust therapy as needed. DONAVON YUAN RPH, 04/01/20 0820
[2020-04-01] MEDS: LACTOBACILLUS RHAMNOSUS GG 1 CAPSULE. PO SCH ×2 (08:55→21:34)
[2020-04-01] MEDS: hydrOXYzine 25 MG TABLET PO SCH ×3 (08:55→21:35)
[2020-04-01] MEDS: SEVELAMER CARBONATE 800 MG TABLET. PO SCH ×3 (08:55→17:00)
[2020-04-01] MEDS: CINACALCET HCL 30 MG TABLET PO SCH (08:55)
[2020-04-01] MEDS: ALLOPURINOL 100 MG TABLET. PO SCH (08:55)
--- NOTE | 2020-04-01 11:11 | PDOC ---
PROGRESS NOTES Chief Complaint Chief Complaint sepsis, with intra-abdominal infection with peritonitis, septic shock yesterday, New finding of chest mass on CAT scan Organomegaly Cirrhosis, liver, End-stage renal disease, on peritoneal dialysis; hypertension; hyperlipidemia, hypothyroidism, gout. History of Present Illness History of Present Illness 04/01,. anemia, will give 1 u prbc he feels well, cont IV abx, some blood out of PD cath last night, 03/31, BP improved, vitals better is sitting up eating, feels well will transfer out of ICU, I have ordered LTD US to eval liver and gallbladder better, cirrhosis 03/30/2020 Patient seen and examined Chart reviewed Discussed with RN He is quite ill Vitals Vitals Vital Signs Date Time Temp Pulse Resp B/P (MAP) Pulse Ox O2 Delivery O2 Flow Rate FiO2 04/01/20 11:00 98.5 83 16 114/76 (89) 96 Room Air 98.5 04/01/20 08:00 1.0 Physical Exam Physical Exam GENERAL: Sitting upright in bed, eating, HEENT: Pupils equally round and reactive. Oropharynx pink and moist. No lesions seen. NECK: Supple. LUNGS: Clear to auscultation. HEART: S1, S2. regular ABDOMEN: Mildly distended, soft, nontender. PD catheter intact. Bowel sounds present. EXTREMITIES: No gross edema or cyanosis. He has large area of bruising right lower extremity stable. Left wrist splint remains in place, fingers warm SKIN: Warm to touch. No signs of rash. Viscosities back area. NEUROLOGIC: Alert and answering questions appropriately. PIVs ok General: moderate distress Heart: Regular rate Lungs: Clear Abdomen: Other (Distended tender) Extremities: No clubbing Skin: No rashes Labs LABS Laboratory Tests Test 04/01/20 07:45 White Blood Count 4.3 x10^3/uL (4.0-11.0) Red Blood Count 2.26 x10^6/uL (4.30-5.70) Hemoglobin 6.8 g/dL (13.0-17.5) Hematocrit 19.8 % (39.0-53.0) Mean Corpuscular Volume 88 fL (79-100) Mean Corpuscular Hemoglobin 30 pg (25-35) Mean Corpuscular Hemoglobin Concent 35 g/dL (31-37) Red Cell Distribution Width 15.7 % (11.5-14.5) Platelet Count 152 x10^3/uL (140-400) Neutrophils (%) (Auto) 75 % (31-73) Lymphocytes (%) (Auto) 12 % (24-48) Monocytes (%) (Auto) 8 % (0-9) Eosinophils (%) (Auto) 4 % (0-3) Basophils (%) (Auto) 1 % (0-3) Neutrophils # (Auto) 3.2 x10^3/uL (1.8-7.7) Lymphocytes # (Auto) 0.5 x10^3/uL (1.0-4.8) Monocytes # (Auto) 0.3 x10^3/uL (0.0-1.1) Eosinophils # (Auto) 0.2 x10^3/uL (0.0-0.7) Basophils # (Auto) 0.0 x10^3/uL (0.0-0.2) Sodium Level 138 mmol/L (136-145) Potassium Level 3.7 mmol/L (3.5-5.1) Chloride Level 99 mmol/L (98-107) Carbon Dioxide Level 24 mmol/L (21-32) Anion Gap 15 (6-14) Blood Urea Nitrogen 71 mg/dL (8-26) Creatinine 13.1 mg/dL (0.7-1.3) Estimated GFR (Cockcroft-Gault) 4.4 BUN/Creatinine Ratio 5 (6-20) Glucose Level 107 mg/dL (70-99) Calcium Level 6.9 mg/dL (8.5-10.1) Ionized Calcium 0.89 mmol/L (1.13-1.32) Total Bilirubin 0.5 mg/dL (0.2-1.0) Aspartate Amino Transf (AST/SGOT) 9 U/L (15-37) Alanine Aminotransferase (ALT/SGPT) 6 U/L (16-63) Alkaline Phosphatase 296 U/L (46-116) Total Protein 5.8 g/dL (6.4-8.2) Albumin 1.4 g/dL (3.4-5.0) Albumin/Globulin Ratio 0.3 (1.0-1.7) Random Vancomycin Level 22.1 mcg/mL Review of Systems Review of Systems no nausea or vomiting, no pain feels oK Assessment and Plan Assessmemt and Plan Problems Medical Problems: (1) Abdominal pain Status: Acute (2) Ascites Status: Acute Comment Review of Relevant I have reviewed the following items pablo (where applicable) has been applied. Labs Laboratory Tests Test 03/30/20 13:10 03/31/20 05:55 04/01/20 07:45 White Blood Count 5.1 x10^3/uL (4.0-11.0) 5.2 x10^3/uL (4.0-11.0) 4.3 x10^3/uL (4.0-11.0) Red Blood Count 1.93 x10^6/uL (4.30-5.70) 2.37 x10^6/uL (4.30-5.70) 2.26 x10^6/uL (4.30-5.70) Hemoglobin 6.0 g/dL (13.0-17.5) 7.2 g/dL (13.0-17.5) 6.8 g/dL (13.0-17.5) Hematocrit 17.0 % (39.0-53.0) 20.8 % (39.0-53.0) 19.8 % (39.0-53.0) Mean Corpuscular Volume 89 fL (79-100) 88 fL (79-100) 88 fL (79-100) Mean Corpuscular Hemoglobin 31 pg (25-35) 30 pg (25-35) 30 pg (25-35) Mean Corpuscular Hemoglobin Concent 35 g/dL (31-37) 35 g/dL (31-37) 35 g/dL (31-37) Red Cell Distribution Width 15.4 % (11.5-14.5) 15.5 % (11.5-14.5) 15.7 % (11.5-14.5) Platelet Count 128 x10^3/uL (140-400) 156 x10^3/uL (140-400) 152 x10^3/uL (140-400) Neutrophils (%) (Auto) 77 % (31-73) 76 % (31-73) 75 % (31-73) Lymphocytes (%) (Auto) 12 % (24-48) 11 % (24-48) 12 % (24-48) Monocytes (%) (Auto) 9 % (0-9) 8 % (0-9) 8 % (0-9) Eosinophils (%) (Auto) 2 % (0-3) 4 % (0-3) 4 % (0-3) Basophils (%) (Auto) 1 % (0-3) 1 % (0-3) 1 % (0-3) Neutrophils # (Auto) 3.9 x10^3/uL (1.8-7.7) 3.9 x10^3/uL (1.8-7.7) 3.2 x10^3/uL (1.8-7.7) Lymphocytes # (Auto) 0.6 x10^3/uL (1.0-4.8) 0.6 x10^3/uL (1.0-4.8) 0.5 x10^3/uL (1.0-4.8) Monocytes # (Auto) 0.5 x10^3/uL (0.0-1.1) 0.4 x10^3/uL (0.0-1.1) 0.3 x10^3/uL (0.0-1.1) Eosinophils # (Auto) 0.1 x10^3/uL (0.0-0.7) 0.2 x10^3/uL (0.0-0.7) 0.2 x10^3/uL (0.0-0.7) Basophils # (Auto) 0.0 x10^3/uL (0.0-0.2) 0.0 x10^3/uL (0.0-0.2) 0.0 x10^3/uL (0.0-0.2) Sodium Level 136 mmol/L (136-145) 135 mmol/L (136-145) 138 mmol/L (136-145) Potassium Level 3.7 mmol/L (3.5-5.1) 4.0 mmol/L (3.5-5.1) 3.7 mmol/L (3.5-5.1) Chloride Level 99 mmol/L (98-107) 98 mmol/L (98-107) 99 mmol/L (98-107) Carbon Dioxide Level 26 mmol/L (21-32) 25 mmol/L (21-32) 24 mmol/L (21-32) Anion Gap 11 (6-14) 12 (6-14) 15 (6-14) Blood Urea Nitrogen 68 mg/dL (8-26) 75 mg/dL (8-26) 71 mg/dL (8-26) Creatinine 12.9 mg/dL (0.7-1.3) 14.1 mg/dL (0.7-1.3) 13.1 mg/dL (0.7-1.3) Estimated GFR (Cockcroft-Gault) 4.5 4.0 4.4 Glucose Level 82 mg/dL (70-99) 103 mg/dL (70-99) 107 mg/dL (70-99) Lactic Acid Level 1.3 mmol/L (0.4-2.0) Calcium Level 6.2 mg/dL (8.5-10.1) 6.1 mg/dL (8.5-10.1) 6.9 mg/dL (8.5-10.1) BUN/Creatinine Ratio 5 (6-20) Ionized Calcium 0.89 mmol/L (1.13-1.32) Total Bilirubin 0.5 mg/dL (0.2-1.0) Aspartate Amino Transf (AST/SGOT) 9 U/L (15-37) Alanine Aminotransferase (ALT/SGPT) 6 U/L (16-63) Alkaline Phosphatase 296 U/L (46-116) Total Protein 5.8 g/dL (6.4-8.2) Albumin 1.4 g/dL (3.4-5.0) Albumin/Globulin Ratio 0.3 (1.0-1.7) Random Vancomycin Level 22.1 mcg/mL Laboratory Tests Test 04/01/20 07:45 White Blood Count 4.3 x10^3/uL (4.0-11.0) Red Blood Count 2.26 x10^6/uL (4.30-5.70) Hemoglobin 6.8 g/dL (13.0-17.5) Hematocrit 19.8 % (39.0-53.0) Mean Corpuscular Volume 88 fL (79-100) Mean Corpuscular Hemoglobin 30 pg (25-35) Mean Corpuscular Hemoglobin Concent 35 g/dL (31-37) Red Cell Distribution Width 15.7 % (11.5-14.5) Platelet Count 152 x10^3/uL (140-400) Neutrophils (%) (Auto) 75 % (31-73) Lymphocytes (%) (Auto) 12 % (24-48) Monocytes (%) (Auto) 8 % (0-9) Eosinophils (%) (Auto) 4 % (0-3) Basophils (%) (Auto) 1 % (0-3) Neutrophils # (Auto) 3.2 x10^3/uL (1.8-7.7) Lymphocytes # (Auto) 0.5 x10^3/uL (1.0-4.8) Monocytes # (Auto) 0.3 x10^3/uL (0.0-1.1) Eosinophils # (Auto) 0.2 x10^3/uL (0.0-0.7) Basophils # (Auto) 0.0 x10^3/uL (0.0-0.2) Sodium Level 138 mmol/L (136-145) Potassium Level 3.7 mmol/L (3.5-5.1) Chloride Level 99 mmol/L (98-107) Carbon Dioxide Level 24 mmol/L (21-32) Anion Gap 15 (6-14) Blood Urea Nitrogen 71 mg/dL (8-26) Creatinine 13.1 mg/dL (0.7-1.3) Estimated GFR (Cockcroft-Gault) 4.4 BUN/Creatinine Ratio 5 (6-20) Glucose Level 107 mg/dL (70-99) Calcium Level 6.9 mg/dL (8.5-10.1) Ionized Calcium 0.89 mmol/L (1.13-1.32) Total Bilirubin 0.5 mg/dL (0.2-1.0) Aspartate Amino Transf (AST/SGOT) 9 U/L (15-37) Alanine Aminotransferase (ALT/SGPT) 6 U/L (16-63) Alkaline Phosphatase 296 U/L (46-116) Total Protein 5.8 g/dL (6.4-8.2) Albumin 1.4 g/dL (3.4-5.0) Albumin/Globulin Ratio 0.3 (1.0-1.7) Random Vancomycin Level 22.1 mcg/mL Microbiology 03/30/20 Blood Culture - Preliminary, Resulted NO GROWTH AFTER 1 DAY 03/29/20 Gram Stain - Final, Resulted 03/29/20 Aerobic and Anaerobic Culture - Preliminary, Resulted Medications Current Medications Fentanyl Citrate (Fentanyl 2ml Vial) 50 mcg 1X ONCE IVP Last administered on 03/29/20at 11:56; Start 03/29/20 at 11:30; Stop 03/29/20 at 11:31; Status DC Sodium Chloride 500 ml @ 500 mls/hr 1X ONCE IV Last administered on 03/29/20at 12:56; Start 03/29/20 at 12:30; Stop 03/29/20 at 13:29; Status DC Iohexol (Omnipaque 300 Mg/ml) 75 ml 1X ONCE IV Last administered on 03/29/20at 12:44; Start 03/29/20 at 12:45; Stop 03/29/20 at 12:46; Status DC Info (CONTRAST GIVEN -- Rx MONITORING) 1 each PRN DAILY PRN MC SEE COMMENTS; Start 03/29/20 at 12:45; Stop 03/31/20 at 12:44; Status DC Allopurinol (Zyloprim) 100 mg DAILY PO Last administered on 04/01/20at 08:55; Start 03/30/20 at 09:00 Carvedilol (Coreg) 12.5 mg BIDWMEALS PO Last administered on 03/31/20at 08:30; Start 03/29/20 at 18:00; Stop 03/31/20 at 15:54; Status DC Hydroxyzine HCl (Atarax) 25 mg TID PO Last administered on 04/01/20at 08:55; Start 03/29/20 at 21:00 Levothyroxine Sodium (Synthroid) 100 mcg DAILYAC PO Last administered on 04/01/20at 05:48; Start 03/30/20 at 07:30 Sevelamer Carbonate (Renvela) 800 mg TIDWMEALS PO Last administered on 04/01/20 08:55; Start 03/29/20 at 18:00 Calcium Carbonate/ Glycine (Oscal) 500 mg PRN BID PRN PO DYSPEPSIA; Start 03/29/20 at 18:00 Cinacalcet (Sensipar) 90 mg DAILY PO Last administered on 04/01/20at 08:55; Start 03/30/20 at 09:00 Acetaminophen/ Hydrocodone Bitart (Lortab 5/325) 1 tab PRN Q4HRS PRN PO PAIN Last administered on 03/30/20at 18:00; Start 03/29/20 at 18:15 Potassium Chloride (Klor-Con) 40 meq 1X ONCE PO Last administered on 03/29/20at 18:58; Start 03/29/20 at 18:15; Stop 03/29/20 at 18:20; Status DC Vancomycin HCl (Vanco Per Pharmacy) 1 each PRN DAILY PRN MC SEE COMMENTS Last administered on 04/01/20at 08:40; Start 03/29/20 at 20:15 Vancomycin HCl 1.75 gm/Sodium Chloride 500 ml @ 250 mls/hr 1X ONCE IV Last administered on 03/29/20at 23:24; Start 03/29/20 at 23:00; Stop 03/30/20 at 00:59; Status DC Piperacillin Sod/ Tazobactam Sod 2.25 gm/Sodium Chloride 50 ml @ 100 mls/hr Q8HRS IV Last administered on 04/01/20at 05:48; Start 03/29/20 at 22:00 Vancomycin HCl (Vancomycin Random Level) 1 each 1X ONCE MC ; Start 04/01/20 at 05:00; Stop 04/01/20 at 05:01; Status DC Sodium Chloride 250 ml @ 250 mls/hr 1X ONCE IV Last administered on 03/30/20at 11:07; Start 03/30/20 at 11:15; Stop 03/30/20 at 12:14; Status DC Sodium Chloride 1,000 ml @ 50 mls/hr 1X ONCE IV Last administered on 03/30/20at 11:11; Start 03/30/20 at 11:15; Stop 03/31/20 at 07:14; Status DC Sodium Chloride 250 ml @ 250 mls/hr 1X ONCE IV Last administered on 03/30/20at 11:35; Start 03/30/20 at 11:30; Stop 03/30/20 at 12:58; Status DC Norepinephrine Bitartrate 8 mg/ Dextrose 258 ml @ 12.5 mls/hr CONT PRN IV PER PROTOCOL Last administered on 03/30/20at 15:42; Start 03/30/20 at 13:00 Lactobacillus Rhamnosus (Culturelle) 1 cap BID PO Last administered on 04/01/20at 08:55; Start 03/30/20 at 21:00 Darbepoetin Billy (ARANESP for DIALYSIS PTS) 40 mcg WEEKLYHS SQ Last administered on 03/31/20at 20:34; Start 03/31/20 at 21:00 Carvedilol (Coreg) 3.125 mg BIDWMEALS PO Last administered on 03/31/20at 16:56; Start 03/31/20 at 17:00 Vancomycin HCl (Vancomycin Random Level) 1 each 1X ONCE MC ; Start 04/03/20 at 05:00; Stop 04/03/20 at 05:01 Active Scripts Active Reported Renvela (Sevelamer Carbonate) 800 Mg Tablet 800 Mg PO TIDWMEALS Nephro-Eliu Tablet (Folic Acid/Vitamin B Comp W-C) 0.8 Mg Tablet 0.8 Mg PO DAILY Levothyroxine Sodium 100 Mcg Tablet 100 Mcg PO DAILYAC Hydroxyzine Hcl 25 Mg Tablet 25 Mg PO TID Sensipar (Cinacalcet Hcl) 90 Mg Tablet 90 Mg PO DAILY Carvedilol (Carvedilol) 12.5 Mg Tablet 12.5 Mg PO BIDWMEALS Allopurinol 100 Mg Tablet 100 Mg PO DAILY Calcium (Calcium Carbonate) 500 Mg Tab.chew 1 Tab PO BID PRN 30 Days Vitals/I & O Vital Sign - Last 24 Hours 03/31/20 03/31/20 03/31/20 03/31/20 12:00 13:00 14:00 15:00 Temp 98.3 98.3 Pulse 70 75 81 76 Resp 14 19 20 20 B/P (MAP) 91/65 (74) 86/51 (63) 88/56 (67) 103/60 (74) O2 Delivery Room Air Room Air Room Air Room Air 03/31/20 03/31/20 03/31/20 03/31/20 16:56 19:00 19:30 23:00 Temp 98.7 98.7 98.7 98.7 Pulse 76 67 68 Resp 18 19 B/P (MAP) 103/60 99/60 (73) 95/61 (72) Pulse Ox 99 O2 Delivery Room Air Room Air Room Air 7/5/20 7/5/20 7/5/20 7/5/20 03:05 07:00 08:00 08:00 Temp 98.6 98.2 98.6 98.2 Pulse 69 85 85 Resp 19 16 B/P (MAP) 99/70 (80) 95/55 (68) 95/55 Pulse Ox 98 96 O2 Delivery Room Air Room Air Room Air O2 Flow Rate 1.0 04/01/20 11:00 Temp 98.5 98.5 Pulse 83 Resp 16 B/P (MAP) 114/76 (89) Pulse Ox 96 O2 Delivery Room Air Intake and Output 03/31/20 03/31/20 04/01/20 15:00 23:00 07:00 Intake Total 250 ml 150 ml 0 ml Output Total 0 ml Balance 250 ml 150 ml 0 ml Justicifation of Admission Dx: Justifications for Admission: Justification of Admission Dx: Yes KANNAN ABARCA MD Apr 01, 2020 11:11
--- NOTE | 2020-04-01 11:13 | PDOC ---
Infectious Disease Note Subjective Subjective Tired but feeling alright Denies pain/N/V/F/C Eating ROS ROS as mentioned above Vital Sign Vital Signs Vital Signs Date Time Temp Pulse Resp B/P (MAP) Pulse Ox O2 Delivery O2 Flow Rate FiO2 04/01/20 08:00 Room Air 1.0 04/01/20 08:00 85 95/55 04/01/20 07:00 98.2 16 96 98.2 Physical Exam PHYSICAL EXAM GENERAL: Lying down, awake, quiet HEENT: Pupils equally round and reactive. Oropharynx pink and moist. No lesions seen. NECK: Supple. LUNGS: Clear to auscultation. HEART: S1, S2. regular ABDOMEN: Mildly distended, soft, nontender. PD catheter intact. Bowel sounds present. EXTREMITIES: No gross edema or cyanosis. Large area of bruising right lower extremity stable. Left wrist splint remains in place, fingers warm SKIN: Warm to touch. No signs of rash. Viscosities back area. NEUROLOGIC: Awake, and answering questions appropriately. PIV Labs Lab Laboratory Tests Test 04/01/20 07:45 White Blood Count 4.3 x10^3/uL (4.0-11.0) Red Blood Count 2.26 x10^6/uL (4.30-5.70) Hemoglobin 6.8 g/dL (13.0-17.5) Hematocrit 19.8 % (39.0-53.0) Mean Corpuscular Volume 88 fL (79-100) Mean Corpuscular Hemoglobin 30 pg (25-35) Mean Corpuscular Hemoglobin Concent 35 g/dL (31-37) Red Cell Distribution Width 15.7 % (11.5-14.5) Platelet Count 152 x10^3/uL (140-400) Neutrophils (%) (Auto) 75 % (31-73) Lymphocytes (%) (Auto) 12 % (24-48) Monocytes (%) (Auto) 8 % (0-9) Eosinophils (%) (Auto) 4 % (0-3) Basophils (%) (Auto) 1 % (0-3) Neutrophils # (Auto) 3.2 x10^3/uL (1.8-7.7) Lymphocytes # (Auto) 0.5 x10^3/uL (1.0-4.8) Monocytes # (Auto) 0.3 x10^3/uL (0.0-1.1) Eosinophils # (Auto) 0.2 x10^3/uL (0.0-0.7) Basophils # (Auto) 0.0 x10^3/uL (0.0-0.2) Sodium Level 138 mmol/L (136-145) Potassium Level 3.7 mmol/L (3.5-5.1) Chloride Level 99 mmol/L (98-107) Carbon Dioxide Level 24 mmol/L (21-32) Anion Gap 15 (6-14) Blood Urea Nitrogen 71 mg/dL (8-26) Creatinine 13.1 mg/dL (0.7-1.3) Estimated GFR (Cockcroft-Gault) 4.4 BUN/Creatinine Ratio 5 (6-20) Glucose Level 107 mg/dL (70-99) Calcium Level 6.9 mg/dL (8.5-10.1) Ionized Calcium 0.89 mmol/L (1.13-1.32) Total Bilirubin 0.5 mg/dL (0.2-1.0) Aspartate Amino Transf (AST/SGOT) 9 U/L (15-37) Alanine Aminotransferase (ALT/SGPT) 6 U/L (16-63) Alkaline Phosphatase 296 U/L (46-116) Total Protein 5.8 g/dL (6.4-8.2) Albumin 1.4 g/dL (3.4-5.0) Albumin/Globulin Ratio 0.3 (1.0-1.7) Random Vancomycin Level 22.1 mcg/mL Micro GRAM STAIN Final Final NO ORGANISMS SEEN. SQUAMOUS EPI CELL:NOT APPLICABLE PMN (WBCs):MANY ANAEROBIC-AEROBIC CULTURE Preliminary Preliminary No Growth on 03/31/20 at 1102 7/3. BLOOD CULTURE Preliminary NO GROWTH AFTER 1 DAY Objective Assessment Acute abdominal pain Peritonitis -Peritoneal fl: cell count 1330. no organisms on gram stain. cx NGTD -H/o STCN peritionitis at [facility]. Hypotension x 2 IVF boluses, now off levophed CKD on peritoneal dialysis Anemia s/p PRBCs, 03/30 Cirrhosis and portal hypertension on Ct scan Hypothyroidism Gout h/o TBI Plan Plan of Care Vancomycin and Zosyn Trough 22.1 Probiotics f/u peritoneal fl culture f/u BC Maintain aspiration precautions Anemia per primary Patient discussed with REGIONAL ACCOUNT DIRECTOR. Chart reviewed in detail. Above plan co-formulated and agreed upon with REGIONAL ACCOUNT DIRECTOR on 04/01/2020. SUSANNA JONES APRN Apr 01, 2020 11:12 MAICO BARRIOS MD Apr 01, 2020 19:48
--- NOTE | 2020-04-01 11:24 | PDOC ---
PULMONARY PROGRESS NOTES Subjective Patient remains on room air without any shortness of breath cough Patient has a hemoglobin of 6.8 today planning for a transfusion, also reported bleeding from peritoneal dialysis catheter overnight No other concerns from nursing Vitals Vital Signs Date Time Temp Pulse Resp B/P (MAP) Pulse Ox O2 Delivery O2 Flow Rate FiO2 04/01/20 11:00 98.5 83 16 114/76 (89) 96 Room Air 98.5 04/01/20 08:00 1.0 ROS: No Nausea, No Chest Pain, No Abdominal Pain, No Increase Cough General: Alert, Oriented X4 Lungs: Clear Cardiovascular: S1, S2 Abdomen: Other (distended acsities) Neuro Exam: Alert Extremities: No Edema Skin: Warm, Dry Labs Laboratory Tests Test 03/30/20 13:10 03/31/20 05:55 04/01/20 07:45 White Blood Count 5.1 x10^3/uL (4.0-11.0) 5.2 x10^3/uL (4.0-11.0) 4.3 x10^3/uL (4.0-11.0) Red Blood Count 1.93 x10^6/uL (4.30-5.70) 2.37 x10^6/uL (4.30-5.70) 2.26 x10^6/uL (4.30-5.70) Hemoglobin 6.0 g/dL (13.0-17.5) 7.2 g/dL (13.0-17.5) 6.8 g/dL (13.0-17.5) Hematocrit 17.0 % (39.0-53.0) 20.8 % (39.0-53.0) 19.8 % (39.0-53.0) Mean Corpuscular Volume 89 fL (79-100) 88 fL (79-100) 88 fL (79-100) Mean Corpuscular Hemoglobin 31 pg (25-35) 30 pg (25-35) 30 pg (25-35) Mean Corpuscular Hemoglobin Concent 35 g/dL (31-37) 35 g/dL (31-37) 35 g/dL (31-37) Red Cell Distribution Width 15.4 % (11.5-14.5) 15.5 % (11.5-14.5) 15.7 % (11.5-14.5) Platelet Count 128 x10^3/uL (140-400) 156 x10^3/uL (140-400) 152 x10^3/uL (140-400) Neutrophils (%) (Auto) 77 % (31-73) 76 % (31-73) 75 % (31-73) Lymphocytes (%) (Auto) 12 % (24-48) 11 % (24-48) 12 % (24-48) Monocytes (%) (Auto) 9 % (0-9) 8 % (0-9) 8 % (0-9) Eosinophils (%) (Auto) 2 % (0-3) 4 % (0-3) 4 % (0-3) Basophils (%) (Auto) 1 % (0-3) 1 % (0-3) 1 % (0-3) Neutrophils # (Auto) 3.9 x10^3/uL (1.8-7.7) 3.9 x10^3/uL (1.8-7.7) 3.2 x10^3/uL (1.8-7.7) Lymphocytes # (Auto) 0.6 x10^3/uL (1.0-4.8) 0.6 x10^3/uL (1.0-4.8) 0.5 x10^3/uL (1.0-4.8) Monocytes # (Auto) 0.5 x10^3/uL (0.0-1.1) 0.4 x10^3/uL (0.0-1.1) 0.3 x10^3/uL (0.0-1.1) Eosinophils # (Auto) 0.1 x10^3/uL (0.0-0.7) 0.2 x10^3/uL (0.0-0.7) 0.2 x10^3/uL (0.0-0.7) Basophils # (Auto) 0.0 x10^3/uL (0.0-0.2) 0.0 x10^3/uL (0.0-0.2) 0.0 x10^3/uL (0.0-0.2) Sodium Level 136 mmol/L (136-145) 135 mmol/L (136-145) 138 mmol/L (136-145) Potassium Level 3.7 mmol/L (3.5-5.1) 4.0 mmol/L (3.5-5.1) 3.7 mmol/L (3.5-5.1) Chloride Level 99 mmol/L (98-107) 98 mmol/L (98-107) 99 mmol/L (98-107) Carbon Dioxide Level 26 mmol/L (21-32) 25 mmol/L (21-32) 24 mmol/L (21-32) Anion Gap 11 (6-14) 12 (6-14) 15 (6-14) Blood Urea Nitrogen 68 mg/dL (8-26) 75 mg/dL (8-26) 71 mg/dL (8-26) Creatinine 12.9 mg/dL (0.7-1.3) 14.1 mg/dL (0.7-1.3) 13.1 mg/dL (0.7-1.3) Estimated GFR (Cockcroft-Gault) 4.5 4.0 4.4 Glucose Level 82 mg/dL (70-99) 103 mg/dL (70-99) 107 mg/dL (70-99) Lactic Acid Level 1.3 mmol/L (0.4-2.0) Calcium Level 6.2 mg/dL (8.5-10.1) 6.1 mg/dL (8.5-10.1) 6.9 mg/dL (8.5-10.1) BUN/Creatinine Ratio 5 (6-20) Ionized Calcium 0.89 mmol/L (1.13-1.32) Total Bilirubin 0.5 mg/dL (0.2-1.0) Aspartate Amino Transf (AST/SGOT) 9 U/L (15-37) Alanine Aminotransferase (ALT/SGPT) 6 U/L (16-63) Alkaline Phosphatase 296 U/L (46-116) Total Protein 5.8 g/dL (6.4-8.2) Albumin 1.4 g/dL (3.4-5.0) Albumin/Globulin Ratio 0.3 (1.0-1.7) Random Vancomycin Level 22.1 mcg/mL Laboratory Tests Test 04/01/20 07:45 White Blood Count 4.3 x10^3/uL (4.0-11.0) Red Blood Count 2.26 x10^6/uL (4.30-5.70) Hemoglobin 6.8 g/dL (13.0-17.5) Hematocrit 19.8 % (39.0-53.0) Mean Corpuscular Volume 88 fL (79-100) Mean Corpuscular Hemoglobin 30 pg (25-35) Mean Corpuscular Hemoglobin Concent 35 g/dL (31-37) Red Cell Distribution Width 15.7 % (11.5-14.5) Platelet Count 152 x10^3/uL (140-400) Neutrophils (%) (Auto) 75 % (31-73) Lymphocytes (%) (Auto) 12 % (24-48) Monocytes (%) (Auto) 8 % (0-9) Eosinophils (%) (Auto) 4 % (0-3) Basophils (%) (Auto) 1 % (0-3) Neutrophils # (Auto) 3.2 x10^3/uL (1.8-7.7) Lymphocytes # (Auto) 0.5 x10^3/uL (1.0-4.8) Monocytes # (Auto) 0.3 x10^3/uL (0.0-1.1) Eosinophils # (Auto) 0.2 x10^3/uL (0.0-0.7) Basophils # (Auto) 0.0 x10^3/uL (0.0-0.2) Sodium Level 138 mmol/L (136-145) Potassium Level 3.7 mmol/L (3.5-5.1) Chloride Level 99 mmol/L (98-107) Carbon Dioxide Level 24 mmol/L (21-32) Anion Gap 15 (6-14) Blood Urea Nitrogen 71 mg/dL (8-26) Creatinine 13.1 mg/dL (0.7-1.3) Estimated GFR (Cockcroft-Gault) 4.4 BUN/Creatinine Ratio 5 (6-20) Glucose Level 107 mg/dL (70-99) Calcium Level 6.9 mg/dL (8.5-10.1) Ionized Calcium 0.89 mmol/L (1.13-1.32) Total Bilirubin 0.5 mg/dL (0.2-1.0) Aspartate Amino Transf (AST/SGOT) 9 U/L (15-37) Alanine Aminotransferase (ALT/SGPT) 6 U/L (16-63) Alkaline Phosphatase 296 U/L (46-116) Total Protein 5.8 g/dL (6.4-8.2) Albumin 1.4 g/dL (3.4-5.0) Albumin/Globulin Ratio 0.3 (1.0-1.7) Random Vancomycin Level 22.1 mcg/mL Medications Active Scripts Medications Dose Route/Sig Max Daily Dose Days Date Category Renvela (Sevelamer Carbonate) 800 Mg Tablet 800 Mg PO TIDWMEALS 03/29/20 Reported Nephro-Eliu Tablet (Folic Acid/Vitamin B Comp W-C) 0.8 Mg Tablet 0.8 Mg PO DAILY 03/29/20 Reported Levothyroxine Sodium 100 Mcg Tablet 100 Mcg PO DAILYAC 03/29/20 Reported Hydroxyzine Hcl 25 Mg Tablet 25 Mg PO TID 03/29/20 Reported Sensipar (Cinacalcet Hcl) 90 Mg Tablet 90 Mg PO DAILY 03/29/20 Reported Carvedilol (Carvedilol) 12.5 Mg Tablet 12.5 Mg PO BIDWMEALS 03/29/20 Reported Allopurinol 100 Mg Tablet 100 Mg PO DAILY 03/29/20 Reported Calcium (Calcium Carbonate) 500 Mg Tab.chew 1 Tab PO BID PRN 30 03/29/20 Reported Comments CXR: IMPRESSION: 1. Oval opacity at the right tracheobronchial angle could be vascular or adenopathy or mass. Recommend further evaluation with CT chest with contrast. 2. There are right pleural calcifications. 3. Opacity in the right lung base may be scarring. CT chest Impression: There is no suspicious thoracic mass. The finding of concern on chest x-ray exam performed earlier the same day corresponds to a very distended azygos vein which is contrast opacified on this exam. Significant collateral venous structures are noted involving the right axillary and chest wall region. Mediastinal collaterals. Correlate for underlying right subclavian venous occlusive process. Right pleural calcifications. Right posterior basilar density presumably related to atelectasis or scarring. Correlate with previous exams to assess stability. Stability is unknown, interval follow-up CT in 4-6 months with contrast is recommended. Correlate with surgical history. Impression . IMPRESSION: Abnormal Chest Xray- concerning for mass--- no mass on Follow up CT Acute abdominal pain secondary to peritonitis. Hypotension--improved End stage renal disease, on peritoneal dialysis. Cirrhosis and portal hypertension Hypothyroidism. Gout. History of traumatic brain injury. Plan . Case discussed with MICROPALEONTOLOGIST. See below stable from pulmonary standpoint, remains on room air follow up CT - 6 weeks Follow ID rec for ABX, follow cultures Follow nephrology recs PT/OT DVT/GI PPX D/W RN We will sign off at this time please call with any questions or concerns thank you CARINA BARRAGAN MD Apr 01, 2020 11:24
--- NOTE | 2020-04-01 12:28 | NUR ---
Patient wants grilled chicken sandwhich to eat. Patient does not want to eat or take medication until food is ready. 1200 dose of sevelemar refused.
--- NOTE | 2020-04-01 12:50 | PDOC ---
SUBJECTIVE ROS No complaints this am, denies pain in abdomen OBJECTIVE Vital Signs Vital Signs Date Time Temp Pulse Resp B/P (MAP) Pulse Ox O2 Delivery O2 Flow Rate FiO2 04/01/20 12:38 98.8 81 14 93/60 98.8 04/01/20 11:00 96 Room Air 04/01/20 08:00 1.0 I & 0 Intake and Output 04/01/20 07:00 Intake Total 400 ml Output Total 0 ml Balance 400 ml Intake Oral 300 ml IV Total 100 ml Output Urine Total 0 ml # Bowel Movements 2 PHYSICAL EXAM Physical Exam GENERAL: NAD HEENT: OM moist. NECK: Supple. LUNGS: Clear to auscultation. HEART: S1, S2. regular ABDOMEN: , soft, nontender. PD catheter intact. Bowel sounds present. EXTREMITIES: No gross edema or cyanosis.Pigmentation RT LE SKIN: No signs of rash. NEUROLOGIC: Alert and answering questions appropriately. DIAGNOSIS/ASSESSMENT Assessment & Plan ESRD- On PD Held on sat night, last night tolerated well PD fauzia corrales Abdominal pain- CT abdomen done 10/30 Peritonitis Culture pending, Currently on Abx HypoCalcemia - corrected for Albumin, Ca is 9 Held Sensipar Hypotension - resolved, stable Anemia- baseline unknown Drop in Hgb , start SAURABH , ram for acute cause per primary Splenomegaly on CT Cirrhosis and portal vein hypertension- On CT , pt denies Etoh use US- Normal sonographic appearance of the liver and gallbladder. No evidence for acute cholecystitis. Possible lower pole right renal mass. Renal cyst versus calcified aneurysm of the upper right kidney. Oval opacity at the right tracheobronchial angle on Cxr CT chest with contrast - no suspicious thoracic mass. corresponds to a very distended azygos vein . Significant collateral venous structures are noted involving the right axillary and chest wall region. Mediastinal collaterals. Correlate for underlying right subclavian venous occlusive process. COMMENT/RELEVANT DATA Meds Current Medications Medications (Trade) Dose Ordered Sig/Corky Start Time Stop Time Status Last Admin Dose Admin Acetaminophen/ Hydrocodone Bitart (Lortab 5/325) 1 tab PRN Q4HRS PRN 03/29/20 18:15 03/30/20 18:00 1 TAB Allopurinol (Zyloprim) 100 mg DAILY 03/30/20 09:00 04/01/20 08:55 100 MG Calcium Carbonate/ Glycine (Oscal) 500 mg PRN BID PRN 7/2/20 18:00 Carvedilol (Coreg) 3.125 mg BIDWMEALS 03/31/20 17:00 03/31/20 16:56 3.125 MG Cinacalcet (Sensipar) 90 mg DAILY 03/30/20 09:00 04/01/20 08:55 90 MG Darbepoetin Billy (ARANESP for DIALYSIS PTS) 40 mcg WEEKLYHS 03/31/20 21:00 03/31/20 20:34 40 MCG Fentanyl Citrate (Fentanyl 2ml Vial) 50 mcg 1X ONCE 03/29/20 11:30 03/29/20 11:31 DC 03/29/20 11:56 50 MCG Hydroxyzine HCl (Atarax) 25 mg TID 03/29/20 21:00 04/01/20 08:55 25 MG Info (CONTRAST GIVEN -- Rx MONITORING) 1 each PRN DAILY PRN 03/29/20 12:45 03/31/20 12:44 DC Iohexol (Omnipaque 300 Mg/ml) 75 ml 1X ONCE 03/29/20 12:45 03/29/20 12:46 DC 03/29/20 12:44 75 ML Lactobacillus Rhamnosus (Culturelle) 1 cap BID 03/30/20 21:00 04/01/20 08:55 1 CAP Levothyroxine Sodium (Synthroid) 100 mcg DAILYAC 03/30/20 07:30 04/01/20 05:48 100 MCG Norepinephrine Bitartrate 8 mg/ Dextrose 258 ml @ 12.5 mls/hr CONT PRN 03/30/20 13:00 03/30/20 15:42 18.5 MLS/HR Piperacillin Sod/ Tazobactam Sod 2.25 gm/Sodium Chloride 50 ml @ 100 mls/hr Q8HRS 03/29/20 22:00 04/01/20 05:48 100 MLS/HR Potassium Chloride (Klor-Con) 40 meq 1X ONCE 03/29/20 18:15 03/29/20 18:20 DC 03/29/20 18:58 40 MEQ Sevelamer Carbonate (Renvela) 800 mg TIDWMEALS 03/29/20 18:00 04/01/20 08:55 800 MG Sodium Chloride 250 ml @ 250 mls/hr 1X ONCE 03/30/20 11:30 03/30/20 12:58 DC 03/30/20 11:35 250 MLS/HR Vancomycin HCl (Vanco Per Pharmacy) 1 each PRN DAILY PRN 03/29/20 20:15 04/01/20 08:40 1 EACH Vancomycin HCl (Vancomycin Random Level) 1 each 1X ONCE 04/03/20 05:00 04/03/20 05:01 Vancomycin HCl 1.75 gm/Sodium Chloride 500 ml @ 250 mls/hr 1X ONCE 03/29/20 23:00 03/30/20 00:59 DC 03/29/20 23:24 250 MLS/HR Lab Laboratory Tests Test 04/01/20 07:45 White Blood Count 4.3 x10^3/uL (4.0-11.0) Red Blood Count 2.26 x10^6/uL (4.30-5.70) Hemoglobin 6.8 g/dL (13.0-17.5) Hematocrit 19.8 % (39.0-53.0) Mean Corpuscular Volume 88 fL (79-100) Mean Corpuscular Hemoglobin 30 pg (25-35) Mean Corpuscular Hemoglobin Concent 35 g/dL (31-37) Red Cell Distribution Width 15.7 % (11.5-14.5) Platelet Count 152 x10^3/uL (140-400) Neutrophils (%) (Auto) 75 % (31-73) Lymphocytes (%) (Auto) 12 % (24-48) Monocytes (%) (Auto) 8 % (0-9) Eosinophils (%) (Auto) 4 % (0-3) Basophils (%) (Auto) 1 % (0-3) Neutrophils # (Auto) 3.2 x10^3/uL (1.8-7.7) Lymphocytes # (Auto) 0.5 x10^3/uL (1.0-4.8) Monocytes # (Auto) 0.3 x10^3/uL (0.0-1.1) Eosinophils # (Auto) 0.2 x10^3/uL (0.0-0.7) Basophils # (Auto) 0.0 x10^3/uL (0.0-0.2) Sodium Level 138 mmol/L (136-145) Potassium Level 3.7 mmol/L (3.5-5.1) Chloride Level 99 mmol/L (98-107) Carbon Dioxide Level 24 mmol/L (21-32) Anion Gap 15 (6-14) Blood Urea Nitrogen 71 mg/dL (8-26) Creatinine 13.1 mg/dL (0.7-1.3) Estimated GFR (Cockcroft-Gault) 4.4 BUN/Creatinine Ratio 5 (6-20) Glucose Level 107 mg/dL (70-99) Calcium Level 6.9 mg/dL (8.5-10.1) Ionized Calcium 0.89 mmol/L (1.13-1.32) Total Bilirubin 0.5 mg/dL (0.2-1.0) Aspartate Amino Transf (AST/SGOT) 9 U/L (15-37) Alanine Aminotransferase (ALT/SGPT) 6 U/L (16-63) Alkaline Phosphatase 296 U/L (46-116) Total Protein 5.8 g/dL (6.4-8.2) Albumin 1.4 g/dL (3.4-5.0) Albumin/Globulin Ratio 0.3 (1.0-1.7) Random Vancomycin Level 22.1 mcg/mL Results All relevant outside records, renal labs, imaging studies, telemetry/EKG's were reviewed. Justicifation of Admission Dx: Justifications for Admission: Justification of Admission Dx: Yes KODAK RICHEY MD Apr 01, 2020 12:50
[2020-04-02 03:00] VITALS: BP 107/72
[2020-04-02 04:55] LABS: BASO % 1 % (0-3); EOS # 0.2 x10^3/uL (0.0-0.7); EOS % 4 % (0-3); HEMATOCRIT 22.5 % (39.0-53.0); HEMOGLOBIN 7.8 g/dL (13.0-17.5); LYMPH # 0.6 x10^3/uL (1.0-4.8); LYMPH % 14 % (24-48); MEAN CORPUSCULAR HEMOGLOBIN 30 pg (25-35); MEAN CORPUSCULAR HGB CONC 35 g/dL (31-37); MEAN CORPUSCULAR VOLUME 87 fL (79-100); MONO # 0.4 x10^3/uL (0.0-1.1); MONO % 9 % (0-9); NEUT % 72 % (31-73); PLATELET COUNT 150 x10^3/uL (140-400); RED BLOOD COUNT 2.57 x10^6/uL (4.30-5.70); RED CELL DISTRIBUTION WIDTH 15.1 % (11.5-14.5); WHITE BLOOD COUNT 4.2 x10^3/uL (4.0-11.0)
[2020-04-02 05:11] LABS: ALBUMIN 1.5 g/dL (3.4-5.0); CALCIUM 6.2 mg/dL (8.5-10.1); CREATININE 12.4 mg/dL (0.7-1.3); GFR 4.7; PHOSPHORUS 8.3 mg/dL (2.6-4.7); POTASSIUM 3.6 mmol/L (3.5-5.1)
[2020-04-02] MEDS: PIPERACILLIN/TAZOBACTAM 2.25 GM in IV NORMAL SALINE 50ML 50 ML IV SCH ×3 (05:35→21:52)
[2020-04-02 07:15] VITALS: BP 124/84
[2020-04-02] MEDS: ALLOPURINOL 100 MG TABLET. PO SCH (08:17)
[2020-04-02] MEDS: SEVELAMER CARBONATE 800 MG TABLET. PO SCH ×3 (08:17→17:19)
[2020-04-02] MEDS: LACTOBACILLUS RHAMNOSUS GG 1 CAPSULE. PO SCH ×2 (08:17→21:53)
[2020-04-02] MEDS: LEVOTHYROXINE 100 MCG TABLET PO SCH (08:18)
[2020-04-02] MEDS: hydrOXYzine 25 MG TABLET PO SCH ×3 (08:18→21:53)
[2020-04-02] MEDS: CARVEDILOL 3.125 MG TABLET. PO SCH ×2 (08:18→17:20)
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
--- NOTE | 2020-04-02 09:04 | PDOC ---
PULMONARY PROGRESS NOTES Subjective Patient not more short of air no chest pain Vitals Vital Signs Date Time Temp Pulse Resp B/P (MAP) Pulse Ox O2 Delivery O2 Flow Rate FiO2 04/02/20 08:18 100 124/84 04/02/20 07:15 97.9 16 100 Room Air 97.9 04/01/20 08:00 1.0 ROS: No Nausea, No Chest Pain, No Abdominal Pain, No Increase Cough General: Alert, Oriented X4 Lungs: Clear Cardiovascular: S1, S2 Abdomen: Other (distended acsities) Neuro Exam: Alert Extremities: No Edema Skin: Warm, Dry Labs Laboratory Tests Test 04/01/20 07:45 04/02/20 04:05 White Blood Count 4.3 x10^3/uL (4.0-11.0) 4.2 x10^3/uL (4.0-11.0) Red Blood Count 2.26 x10^6/uL (4.30-5.70) 2.57 x10^6/uL (4.30-5.70) Hemoglobin 6.8 g/dL (13.0-17.5) 7.8 g/dL (13.0-17.5) Hematocrit 19.8 % (39.0-53.0) 22.5 % (39.0-53.0) Mean Corpuscular Volume 88 fL (79-100) 87 fL (79-100) Mean Corpuscular Hemoglobin 30 pg (25-35) 30 pg (25-35) Mean Corpuscular Hemoglobin Concent 35 g/dL (31-37) 35 g/dL (31-37) Red Cell Distribution Width 15.7 % (11.5-14.5) 15.1 % (11.5-14.5) Platelet Count 152 x10^3/uL (140-400) 150 x10^3/uL (140-400) Neutrophils (%) (Auto) 75 % (31-73) 72 % (31-73) Lymphocytes (%) (Auto) 12 % (24-48) 14 % (24-48) Monocytes (%) (Auto) 8 % (0-9) 9 % (0-9) Eosinophils (%) (Auto) 4 % (0-3) 4 % (0-3) Basophils (%) (Auto) 1 % (0-3) 1 % (0-3) Neutrophils # (Auto) 3.2 x10^3/uL (1.8-7.7) 3.0 x10^3/uL (1.8-7.7) Lymphocytes # (Auto) 0.5 x10^3/uL (1.0-4.8) 0.6 x10^3/uL (1.0-4.8) Monocytes # (Auto) 0.3 x10^3/uL (0.0-1.1) 0.4 x10^3/uL (0.0-1.1) Eosinophils # (Auto) 0.2 x10^3/uL (0.0-0.7) 0.2 x10^3/uL (0.0-0.7) Basophils # (Auto) 0.0 x10^3/uL (0.0-0.2) 0.0 x10^3/uL (0.0-0.2) Sodium Level 138 mmol/L (136-145) 138 mmol/L (136-145) Potassium Level 3.7 mmol/L (3.5-5.1) 3.6 mmol/L (3.5-5.1) Chloride Level 99 mmol/L (98-107) 99 mmol/L (98-107) Carbon Dioxide Level 24 mmol/L (21-32) 25 mmol/L (21-32) Anion Gap 15 (6-14) 14 (6-14) Blood Urea Nitrogen 71 mg/dL (8-26) 63 mg/dL (8-26) Creatinine 13.1 mg/dL (0.7-1.3) 12.4 mg/dL (0.7-1.3) Estimated GFR (Cockcroft-Gault) 4.4 4.7 BUN/Creatinine Ratio 5 (6-20) Glucose Level 107 mg/dL (70-99) 98 mg/dL (70-99) Calcium Level 6.9 mg/dL (8.5-10.1) 6.2 mg/dL (8.5-10.1) Ionized Calcium 0.89 mmol/L (1.13-1.32) Total Bilirubin 0.5 mg/dL (0.2-1.0) Aspartate Amino Transf (AST/SGOT) 9 U/L (15-37) Alanine Aminotransferase (ALT/SGPT) 6 U/L (16-63) Alkaline Phosphatase 296 U/L (46-116) Total Protein 5.8 g/dL (6.4-8.2) Albumin 1.4 g/dL (3.4-5.0) 1.5 g/dL (3.4-5.0) Albumin/Globulin Ratio 0.3 (1.0-1.7) Random Vancomycin Level 22.1 mcg/mL Phosphorus Level 8.3 mg/dL (2.6-4.7) Laboratory Tests Test 04/02/20 04:05 White Blood Count 4.2 x10^3/uL (4.0-11.0) Red Blood Count 2.57 x10^6/uL (4.30-5.70) Hemoglobin 7.8 g/dL (13.0-17.5) Hematocrit 22.5 % (39.0-53.0) Mean Corpuscular Volume 87 fL (79-100) Mean Corpuscular Hemoglobin 30 pg (25-35) Mean Corpuscular Hemoglobin Concent 35 g/dL (31-37) Red Cell Distribution Width 15.1 % (11.5-14.5) Platelet Count 150 x10^3/uL (140-400) Neutrophils (%) (Auto) 72 % (31-73) Lymphocytes (%) (Auto) 14 % (24-48) Monocytes (%) (Auto) 9 % (0-9) Eosinophils (%) (Auto) 4 % (0-3) Basophils (%) (Auto) 1 % (0-3) Neutrophils # (Auto) 3.0 x10^3/uL (1.8-7.7) Lymphocytes # (Auto) 0.6 x10^3/uL (1.0-4.8) Monocytes # (Auto) 0.4 x10^3/uL (0.0-1.1) Eosinophils # (Auto) 0.2 x10^3/uL (0.0-0.7) Basophils # (Auto) 0.0 x10^3/uL (0.0-0.2) Sodium Level 138 mmol/L (136-145) Potassium Level 3.6 mmol/L (3.5-5.1) Chloride Level 99 mmol/L (98-107) Carbon Dioxide Level 25 mmol/L (21-32) Anion Gap 14 (6-14) Blood Urea Nitrogen 63 mg/dL (8-26) Creatinine 12.4 mg/dL (0.7-1.3) Estimated GFR (Cockcroft-Gault) 4.7 Glucose Level 98 mg/dL (70-99) Calcium Level 6.2 mg/dL (8.5-10.1) Phosphorus Level 8.3 mg/dL (2.6-4.7) Albumin 1.5 g/dL (3.4-5.0) Medications Active Scripts Medications Dose Route/Sig Max Daily Dose Days Date Category Renvela (Sevelamer Carbonate) 800 Mg Tablet 800 Mg PO TIDWMEALS 03/29/20 Reported Nephro-Eliu Tablet (Folic Acid/Vitamin B Comp W-C) 0.8 Mg Tablet 0.8 Mg PO DAILY 03/29/20 Reported Levothyroxine Sodium 100 Mcg Tablet 100 Mcg PO DAILYAC 03/29/20 Reported Hydroxyzine Hcl 25 Mg Tablet 25 Mg PO TID 03/29/20 Reported Sensipar (Cinacalcet Hcl) 90 Mg Tablet 90 Mg PO DAILY 03/29/20 Reported Carvedilol (Carvedilol) 12.5 Mg Tablet 12.5 Mg PO BIDWMEALS 03/29/20 Reported Allopurinol 100 Mg Tablet 100 Mg PO DAILY 03/29/20 Reported Calcium (Calcium Carbonate) 500 Mg Tab.chew 1 Tab PO BID PRN 30 03/29/20 Reported Comments CXR: IMPRESSION: 1. Oval opacity at the right tracheobronchial angle could be vascular or adenopathy or mass. Recommend further evaluation with CT chest with contrast. 2. There are right pleural calcifications. 3. Opacity in the right lung base may be scarring. CT chest Impression: There is no suspicious thoracic mass. The finding of concern on chest x-ray exam performed earlier the same day corresponds to a very distended azygos vein which is contrast opacified on this exam. Significant collateral venous structures are noted involving the right axillary and chest wall region. Mediastinal collaterals. Correlate for underlying right subclavian venous occlusive process. Right pleural calcifications. Right posterior basilar density presumably related to atelectasis or scarring. Correlate with previous exams to assess stability. Stability is unknown, interval follow-up CT in 4-6 months with contrast is recommended. Correlate with surgical history. Impression . IMPRESSION: Abnormal Chest Xray- concerning for mass--- no mass on Follow up CT Acute abdominal pain secondary to peritonitis. Hypotension--improved End stage renal disease, on peritoneal dialysis. Cirrhosis and portal hypertension Hypothyroidism. Gout. History of traumatic brain injury. Plan . Transfused yesterday hemoglobin today 7.8 stable from pulmonary standpoint, remains on room air follow up CT - 6 weeks Follow ID rec for ABX, follow cultures Follow nephrology recs PT/OT DVT/GI PPX D/W CARINA ORTEGA MD Apr 02, 2020 09:04
[2020-04-02] MEDS: CINACALCET HCL 30 MG TABLET PO SCH (10:00)
[2020-04-02 11:00] VITALS: BP 116/71
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
--- NOTE | 2020-04-02 13:40 | PDOC ---
SUBJECTIVE ROS No complaints this am, denies pain in abdomen OBJECTIVE Vital Signs Vital Signs Date Time Temp Pulse Resp B/P (MAP) Pulse Ox O2 Delivery O2 Flow Rate FiO2 04/02/20 11:00 97.8 88 16 116/71 (86) 97 Room Air 97.8 04/01/20 08:00 1.0 I & 0 Intake and Output 04/02/20 07:00 Intake Total 405 ml Balance 405 ml Intake Oral 60 ml Blood Product IV Normal Saline Flush 345 ml # Voids 4 # Bowel Movements 4 PHYSICAL EXAM Physical Exam GENERAL: NAD HEENT: OM moist. NECK: Supple. LUNGS: Clear to auscultation. HEART: S1, S2. regular ABDOMEN: , soft, nontender. PD catheter intact. Bowel sounds present. EXTREMITIES: No gross edema or cyanosis.Pigmentation RT LE SKIN: No signs of rash. NEUROLOGIC: Alert and answering questions appropriately. DIAGNOSIS/ASSESSMENT Assessment & Plan ESRD- On PD tolerating well , No complaints , UF 555ml Has some blood in effluent yesterday- clear today PD tonight, with 1.5 % Dianeal dw DRn Abdominal pain- Resolved 2/2 Peritonitis ,effluent clear per DRn Currently on Abx per ID HypoCalcemia - corrected for Albumin, Ca is 9 Held Sensipar Hypotension - resolved, stable Anemia- baseline unknown Drop in Hgb , start SAURABH stable Splenomegaly on CT Cirrhosis and portal vein hypertension- On CT , pt denies Etoh use US- Normal sonographic appearance of the liver and gallbladder. No evidence for acute cholecystitis. Possible lower pole right renal mass. Renal cyst versus calcified aneurysm of the upper right kidney. Oval opacity at the right tracheobronchial angle on Cxr CT chest with contrast - no suspicious thoracic mass. corresponds to a very distended azygos vein . Significant collateral venous structures are noted involving the right axillary and chest wall region. Mediastinal collaterals. Correlate for underlying right subclavian venous occlusive process. COMMENT/RELEVANT DATA Meds Current Medications Medications (Trade) Dose Ordered Sig/Corky Start Time Stop Time Status Last Admin Dose Admin Acetaminophen/ Hydrocodone Bitart (Lortab 5/325) 1 tab PRN Q4HRS PRN 03/29/20 18:15 03/30/20 18:00 1 TAB Allopurinol (Zyloprim) 100 mg DAILY 03/30/20 09:00 04/02/20 08:17 100 MG Calcium Carbonate/ Glycine (Oscal) 500 mg PRN BID PRN 03/29/20 18:00 Carvedilol (Coreg) 3.125 mg BIDWMEALS 03/31/20 17:00 04/02/20 08:18 3.125 MG Cinacalcet (Sensipar) 90 mg DAILY 03/30/20 09:00 04/02/20 10:00 90 MG Darbepoetin Billy (ARANESP for DIALYSIS PTS) 40 mcg WEEKLYHS 03/31/20 21:00 03/31/20 20:34 40 MCG Fentanyl Citrate (Fentanyl 2ml Vial) 50 mcg 1X ONCE 03/29/20 11:30 03/29/20 11:31 DC 03/29/20 11:56 50 MCG Hydroxyzine HCl (Atarax) 25 mg TID 03/29/20 21:00 04/02/20 08:18 25 MG Info (CONTRAST GIVEN -- Rx MONITORING) 1 each PRN DAILY PRN 03/29/20 12:45 03/31/20 12:44 DC Iohexol (Omnipaque 300 Mg/ml) 75 ml 1X ONCE 03/29/20 12:45 03/29/20 12:46 DC 03/29/20 12:44 75 ML Lactobacillus Rhamnosus (Culturelle) 1 cap BID 03/30/20 21:00 04/02/20 08:17 1 CAP Levothyroxine Sodium (Synthroid) 100 mcg DAILYAC 03/30/20 07:30 04/02/20 08:18 100 MCG Norepinephrine Bitartrate 8 mg/ Dextrose 258 ml @ 12.5 mls/hr CONT PRN 03/30/20 13:00 03/30/20 15:42 18.5 MLS/HR Piperacillin Sod/ Tazobactam Sod 2.25 gm/Sodium Chloride 50 ml @ 100 mls/hr Q8HRS 03/29/20 22:00 04/02/20 05:35 100 MLS/HR Potassium Chloride (Klor-Con) 40 meq 1X ONCE 03/29/20 18:15 03/29/20 18:20 DC 03/29/20 18:58 40 MEQ Sevelamer Carbonate (Renvela) 800 mg TIDWMEALS 03/29/20 18:00 04/02/20 12:06 800 MG Sodium Chloride 250 ml @ 250 mls/hr 1X ONCE 03/30/20 11:30 03/30/20 12:58 DC 03/30/20 11:35 250 MLS/HR Vancomycin HCl (Vanco Per Pharmacy) 1 each PRN DAILY PRN 03/29/20 20:15 04/01/20 08:40 1 EACH Vancomycin HCl (Vancomycin Random Level) 1 each 1X ONCE 04/03/20 05:00 04/03/20 05:01 Vancomycin HCl 1.75 gm/Sodium Chloride 500 ml @ 250 mls/hr 1X ONCE 03/29/20 23:00 03/30/20 00:59 DC 03/29/20 23:24 250 MLS/HR Lab Laboratory Tests Test 04/02/20 04:05 White Blood Count 4.2 x10^3/uL (4.0-11.0) Red Blood Count 2.57 x10^6/uL (4.30-5.70) Hemoglobin 7.8 g/dL (13.0-17.5) Hematocrit 22.5 % (39.0-53.0) Mean Corpuscular Volume 87 fL (79-100) Mean Corpuscular Hemoglobin 30 pg (25-35) Mean Corpuscular Hemoglobin Concent 35 g/dL (31-37) Red Cell Distribution Width 15.1 % (11.5-14.5) Platelet Count 150 x10^3/uL (140-400) Neutrophils (%) (Auto) 72 % (31-73) Lymphocytes (%) (Auto) 14 % (24-48) Monocytes (%) (Auto) 9 % (0-9) Eosinophils (%) (Auto) 4 % (0-3) Basophils (%) (Auto) 1 % (0-3) Neutrophils # (Auto) 3.0 x10^3/uL (1.8-7.7) Lymphocytes # (Auto) 0.6 x10^3/uL (1.0-4.8) Monocytes # (Auto) 0.4 x10^3/uL (0.0-1.1) Eosinophils # (Auto) 0.2 x10^3/uL (0.0-0.7) Basophils # (Auto) 0.0 x10^3/uL (0.0-0.2) Sodium Level 138 mmol/L (136-145) Potassium Level 3.6 mmol/L (3.5-5.1) Chloride Level 99 mmol/L (98-107) Carbon Dioxide Level 25 mmol/L (21-32) Anion Gap 14 (6-14) Blood Urea Nitrogen 63 mg/dL (8-26) Creatinine 12.4 mg/dL (0.7-1.3) Estimated GFR (Cockcroft-Gault) 4.7 Glucose Level 98 mg/dL (70-99) Calcium Level 6.2 mg/dL (8.5-10.1) Phosphorus Level 8.3 mg/dL (2.6-4.7) Albumin 1.5 g/dL (3.4-5.0) Results All relevant outside records, renal labs, imaging studies, telemetry/EKG's were reviewed. Justicifation of Admission Dx: Justifications for Admission: Justification of Admission Dx: Yes KODAK RICHEY MD Apr 02, 2020 13:40
[2020-04-02 15:00] VITALS: BP 120/74
[2020-04-02 19:00] VITALS: BP 116/77
[2020-04-02 23:00] VITALS: BP 107/73
[2020-04-03 03:00] VITALS: BP 129/86
[2020-04-03] MEDS ORDERED: VANCOMYCIN RANDOM LEVEL. MC ONE (05:00)
[2020-04-03 06:05] LABS: BASO % 1 % (0-3); EOS # 0.2 x10^3/uL (0.0-0.7); EOS % 5 % (0-3); HEMATOCRIT 21.5 % (39.0-53.0); HEMOGLOBIN 7.5 g/dL (13.0-17.5); LYMPH # 0.7 x10^3/uL (1.0-4.8); LYMPH % 19 % (24-48); MEAN CORPUSCULAR HEMOGLOBIN 30 pg (25-35); MEAN CORPUSCULAR HGB CONC 35 g/dL (31-37); MEAN CORPUSCULAR VOLUME 88 fL (79-100); MONO # 0.4 x10^3/uL (0.0-1.1); MONO % 10 % (0-9); NEUT # 2.4 x10^3/uL (1.8-7.7); NEUT % 66 % (31-73); PLATELET COUNT 129 x10^3/uL (140-400); RED BLOOD COUNT 2.46 x10^6/uL (4.30-5.70); RED CELL DISTRIBUTION WIDTH 15.1 % (11.5-14.5); WHITE BLOOD COUNT 3.7 x10^3/uL (4.0-11.0)
[2020-04-03 06:31] LABS: ALBUMIN 1.4 g/dL (3.4-5.0); ALBUMIN/GLOBULIN RATIO 0.4 (1.0-1.7); ALK PHOS 285 U/L (46-116); ANION GAP 13 (6-14); AST (SGOT) 11 U/L (15-37); BLOOD UREA NITROGEN 60 mg/dL (8-26); BUN/CREATININE RATIO 5 (6-20); CALCIUM 6.3 mg/dL (8.5-10.1); CARBON DIOXIDE 25 mmol/L (21-32); CHLORIDE 101 mmol/L (98-107); CREATININE 12.2 mg/dL (0.7-1.3); GFR 4.8; GLUCOSE 85 mg/dL (70-99); POTASSIUM 3.4 mmol/L (3.5-5.1); SODIUM 139 mmol/L (136-145); TOTAL BILIRUBIN 0.4 mg/dL (0.2-1.0); TOTAL PROTEIN 5.3 g/dL (6.4-8.2)
[2020-04-03 06:32] LABS: ALT (SGPT) < 6 U/L (16-63)
[2020-04-03 07:15] VITALS: BP 105/74
[2020-04-03] MEDS: PIPERACILLIN/TAZOBACTAM 2.25 GM in IV NORMAL SALINE 50ML 50 ML IV SCH (07:23)
[2020-04-03] MEDS: LEVOTHYROXINE 100 MCG TABLET PO SCH (07:23)
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
[2020-04-03] MEDS: CINACALCET HCL 30 MG TABLET PO SCH (08:08)
[2020-04-03] MEDS: LACTOBACILLUS RHAMNOSUS GG 1 CAPSULE. PO SCH ×2 (08:08→21:49)
[2020-04-03] MEDS: SEVELAMER CARBONATE 800 MG TABLET. PO SCH ×3 (08:08→17:37)
[2020-04-03] MEDS: hydrOXYzine 25 MG TABLET PO SCH ×3 (08:08→21:49)
[2020-04-03] MEDS: ALLOPURINOL 100 MG TABLET. PO SCH (08:08)
[2020-04-03] MEDS: CARVEDILOL 3.125 MG TABLET. PO SCH ×2 (08:09→17:38)
--- NOTE | 2020-04-03 08:48 | PDOC ---
PULMONARY PROGRESS NOTES Subjective Patient not more short of air no chest pain Vitals Vital Signs Date Time Temp Pulse Resp B/P (MAP) Pulse Ox O2 Delivery O2 Flow Rate FiO2 04/03/20 08:09 79 105/74 04/03/20 07:15 98.6 20 98 Room Air 98.6 ROS: No Nausea, No Chest Pain, No Abdominal Pain, No Increase Cough General: Alert, Oriented X4 Lungs: Clear Cardiovascular: S1, S2 Abdomen: Other (distended acsities) Neuro Exam: Alert Extremities: No Edema Skin: Warm, Dry Labs Laboratory Tests Test 04/02/20 04:05 04/02/20 05:00 04/03/20 05:00 White Blood Count 4.2 x10^3/uL (4.0-11.0) 3.7 x10^3/uL (4.0-11.0) Red Blood Count 2.57 x10^6/uL (4.30-5.70) 2.46 x10^6/uL (4.30-5.70) Hemoglobin 7.8 g/dL (13.0-17.5) 7.5 g/dL (13.0-17.5) Hematocrit 22.5 % (39.0-53.0) 21.5 % (39.0-53.0) Mean Corpuscular Volume 87 fL (79-100) 88 fL (79-100) Mean Corpuscular Hemoglobin 30 pg (25-35) 30 pg (25-35) Mean Corpuscular Hemoglobin Concent 35 g/dL (31-37) 35 g/dL (31-37) Red Cell Distribution Width 15.1 % (11.5-14.5) 15.1 % (11.5-14.5) Platelet Count 150 x10^3/uL (140-400) 129 x10^3/uL (140-400) Neutrophils (%) (Auto) 72 % (31-73) 66 % (31-73) Lymphocytes (%) (Auto) 14 % (24-48) 19 % (24-48) Monocytes (%) (Auto) 9 % (0-9) 10 % (0-9) Eosinophils (%) (Auto) 4 % (0-3) 5 % (0-3) Basophils (%) (Auto) 1 % (0-3) 1 % (0-3) Neutrophils # (Auto) 3.0 x10^3/uL (1.8-7.7) 2.4 x10^3/uL (1.8-7.7) Lymphocytes # (Auto) 0.6 x10^3/uL (1.0-4.8) 0.7 x10^3/uL (1.0-4.8) Monocytes # (Auto) 0.4 x10^3/uL (0.0-1.1) 0.4 x10^3/uL (0.0-1.1) Eosinophils # (Auto) 0.2 x10^3/uL (0.0-0.7) 0.2 x10^3/uL (0.0-0.7) Basophils # (Auto) 0.0 x10^3/uL (0.0-0.2) 0.0 x10^3/uL (0.0-0.2) Sodium Level 138 mmol/L (136-145) 139 mmol/L (136-145) Potassium Level 3.6 mmol/L (3.5-5.1) 3.4 mmol/L (3.5-5.1) Chloride Level 99 mmol/L (98-107) 101 mmol/L (98-107) Carbon Dioxide Level 25 mmol/L (21-32) 25 mmol/L (21-32) Anion Gap 14 (6-14) 13 (6-14) Blood Urea Nitrogen 63 mg/dL (8-26) 60 mg/dL (8-26) Creatinine 12.4 mg/dL (0.7-1.3) 12.2 mg/dL (0.7-1.3) Estimated GFR (Cockcroft-Gault) 4.7 4.8 Glucose Level 98 mg/dL (70-99) 85 mg/dL (70-99) Calcium Level 6.2 mg/dL (8.5-10.1) 6.3 mg/dL (8.5-10.1) Phosphorus Level 8.3 mg/dL (2.6-4.7) 8.0 mg/dL (2.6-4.7) Albumin 1.5 g/dL (3.4-5.0) 1.4 g/dL (3.4-5.0) Clostridium difficile Toxin (PCR) Negative (NEGATIVE) BUN/Creatinine Ratio 5 (6-20) Total Bilirubin 0.4 mg/dL (0.2-1.0) Aspartate Amino Transf (AST/SGOT) 11 U/L (15-37) Alanine Aminotransferase (ALT/SGPT) < 6 U/L (16-63) Alkaline Phosphatase 285 U/L (46-116) Total Protein 5.3 g/dL (6.4-8.2) Albumin/Globulin Ratio 0.4 (1.0-1.7) Random Vancomycin Level 19.3 mcg/mL Laboratory Tests Test 04/03/20 05:00 White Blood Count 3.7 x10^3/uL (4.0-11.0) Red Blood Count 2.46 x10^6/uL (4.30-5.70) Hemoglobin 7.5 g/dL (13.0-17.5) Hematocrit 21.5 % (39.0-53.0) Mean Corpuscular Volume 88 fL (79-100) Mean Corpuscular Hemoglobin 30 pg (25-35) Mean Corpuscular Hemoglobin Concent 35 g/dL (31-37) Red Cell Distribution Width 15.1 % (11.5-14.5) Platelet Count 129 x10^3/uL (140-400) Neutrophils (%) (Auto) 66 % (31-73) Lymphocytes (%) (Auto) 19 % (24-48) Monocytes (%) (Auto) 10 % (0-9) Eosinophils (%) (Auto) 5 % (0-3) Basophils (%) (Auto) 1 % (0-3) Neutrophils # (Auto) 2.4 x10^3/uL (1.8-7.7) Lymphocytes # (Auto) 0.7 x10^3/uL (1.0-4.8) Monocytes # (Auto) 0.4 x10^3/uL (0.0-1.1) Eosinophils # (Auto) 0.2 x10^3/uL (0.0-0.7) Basophils # (Auto) 0.0 x10^3/uL (0.0-0.2) Sodium Level 139 mmol/L (136-145) Potassium Level 3.4 mmol/L (3.5-5.1) Chloride Level 101 mmol/L (98-107) Carbon Dioxide Level 25 mmol/L (21-32) Anion Gap 13 (6-14) Blood Urea Nitrogen 60 mg/dL (8-26) Creatinine 12.2 mg/dL (0.7-1.3) Estimated GFR (Cockcroft-Gault) 4.8 BUN/Creatinine Ratio 5 (6-20) Glucose Level 85 mg/dL (70-99) Calcium Level 6.3 mg/dL (8.5-10.1) Phosphorus Level 8.0 mg/dL (2.6-4.7) Total Bilirubin 0.4 mg/dL (0.2-1.0) Aspartate Amino Transf (AST/SGOT) 11 U/L (15-37) Alanine Aminotransferase (ALT/SGPT) < 6 U/L (16-63) Alkaline Phosphatase 285 U/L (46-116) Total Protein 5.3 g/dL (6.4-8.2) Albumin 1.4 g/dL (3.4-5.0) Albumin/Globulin Ratio 0.4 (1.0-1.7) Random Vancomycin Level 19.3 mcg/mL Medications Active Scripts Medications Dose Route/Sig Max Daily Dose Days Date Category Renvela (Sevelamer Carbonate) 800 Mg Tablet 800 Mg PO TIDWMEALS 03/29/20 Reported Nephro-Eliu Tablet (Folic Acid/Vitamin B Comp W-C) 0.8 Mg Tablet 0.8 Mg PO DAILY 03/29/20 Reported Levothyroxine Sodium 100 Mcg Tablet 100 Mcg PO DAILYAC 03/29/20 Reported Hydroxyzine Hcl 25 Mg Tablet 25 Mg PO TID 03/29/20 Reported Sensipar (Cinacalcet Hcl) 90 Mg Tablet 90 Mg PO DAILY 03/29/20 Reported Carvedilol (Carvedilol) 12.5 Mg Tablet 12.5 Mg PO BIDWMEALS 03/29/20 Reported Allopurinol 100 Mg Tablet 100 Mg PO DAILY 03/29/20 Reported Calcium (Calcium Carbonate) 500 Mg Tab.chew 1 Tab PO BID PRN 30 03/29/20 Reported Comments CXR: IMPRESSION: 1. Oval opacity at the right tracheobronchial angle could be vascular or adenopathy or mass. Recommend further evaluation with CT chest with contrast. 2. There are right pleural calcifications. 3. Opacity in the right lung base may be scarring. CT chest Impression: There is no suspicious thoracic mass. The finding of concern on chest x-ray exam performed earlier the same day corresponds to a very distended azygos vein which is contrast opacified on this exam. Significant collateral venous structures are noted involving the right axillary and chest wall region. Mediastinal collaterals. Correlate for underlying right subclavian venous occlusive process. Right pleural calcifications. Right posterior basilar density presumably related to atelectasis or scarring. Correlate with previous exams to assess stability. Stability is unknown, interval follow-up CT in 4-6 months with contrast is recommended. Correlate with surgical history. Impression . IMPRESSION: Abnormal Chest Xray- concerning for mass--- no mass on Follow up CT Acute abdominal pain secondary to peritonitis. Hypotension--improved End stage renal disease, on peritoneal dialysis. Cirrhosis and portal hypertension Hypothyroidism. Gout. History of traumatic brain injury. Plan . Transfused yesterday hemoglobin today 7.8 stable from pulmonary standpoint, remains on room air follow up CT - 6 weeks Follow ID rec for ABX, follow cultures Follow nephrology recs PT/OT DVT/GI PPX D/W CARINA ORTEGA MD Apr 03, 2020 08:48
--- NOTE | 2020-04-03 10:41 | PDOC ---
SUBJECTIVE ROS No complaints this am, denies pain in abdomen . States ready to go home "but who will take me home" OBJECTIVE Vital Signs Vital Signs Date Time Temp Pulse Resp B/P (MAP) Pulse Ox O2 Delivery O2 Flow Rate FiO2 04/03/20 08:09 79 105/74 04/03/20 07:15 98.6 20 98 Room Air 98.6 I & 0 Intake and Output 04/03/20 07:00 Intake Total 340 ml Balance 340 ml Intake Oral 340 ml # Voids 1 # Bowel Movements 2 PHYSICAL EXAM Physical Exam GENERAL: NAD HEENT: OM moist. NECK: Supple. LUNGS: Clear to auscultation. HEART: S1, S2. regular ABDOMEN: , soft, nontender. PD catheter intact. Bowel sounds present. EXTREMITIES: No gross edema or cyanosis.Pigmentation RT LE SKIN: No signs of rash. NEUROLOGIC: Alert and answering questions appropriately. DIAGNOSIS/ASSESSMENT Assessment & Plan ESRD- On PD tolerating well , No complaints , UF 800 ml effluent clear today PD tonight, with 1.5 % Dianeal dw DRn Abdominal pain- Resolved 2/2 Peritonitis ,effluent clear per DRn Currently on Abx per ID HypoCalcemia - corrected for Albumin, Ca is 9 Held Sensipar Hypotension - resolved, stable Anemia- baseline unknown Drop in Hgb , started SAURABH stable Splenomegaly on CT Cirrhosis and portal vein hypertension- On CT , pt denies Etoh use US- Normal sonographic appearance of the liver and gallbladder. No evidence for acute cholecystitis. Possible lower pole right renal mass. Renal cyst versus calcified aneurysm of the upper right kidney. Oval opacity at the right tracheobronchial angle on Cxr CT chest with contrast - no suspicious thoracic mass. corresponds to a very distended azygos vein . Significant collateral venous structures are noted involving the right axillary and chest wall region. Mediastinal collaterals. Correlate for underlying right subclavian venous occlusive process. Social/Family Issues COMMENT/RELEVANT DATA Meds Current Medications Medications (Trade) Dose Ordered Sig/Corky Start Time Stop Time Status Last Admin Dose Admin Acetaminophen/ Hydrocodone Bitart (Lortab 5/325) 1 tab PRN Q4HRS PRN 03/29/20 18:15 03/30/20 18:00 1 TAB Allopurinol (Zyloprim) 100 mg DAILY 03/30/20 09:00 04/03/20 08:08 100 MG Calcium Carbonate/ Glycine (Oscal) 500 mg PRN BID PRN 03/29/20 18:00 Carvedilol (Coreg) 3.125 mg BIDWMEALS 03/31/20 17:00 04/03/20 08:09 3.125 MG Cinacalcet (Sensipar) 90 mg DAILY 03/30/20 09:00 04/03/20 08:08 90 MG Darbepoetin Billy (ARANESP for DIALYSIS PTS) 40 mcg WEEKLYHS 03/31/20 21:00 03/31/20 20:34 40 MCG Fentanyl Citrate (Fentanyl 2ml Vial) 50 mcg 1X ONCE 03/29/20 11:30 03/29/20 11:31 DC 03/29/20 11:56 50 MCG Hydroxyzine HCl (Atarax) 25 mg TID 03/29/20 21:00 04/03/20 08:08 25 MG Info (CONTRAST GIVEN -- Rx MONITORING) 1 each PRN DAILY PRN 03/29/20 12:45 03/31/20 12:44 DC Iohexol (Omnipaque 300 Mg/ml) 75 ml 1X ONCE 03/29/20 12:45 03/29/20 12:46 DC 03/29/20 12:44 75 ML Lactobacillus Rhamnosus (Culturelle) 1 cap BID 03/30/20 21:00 04/03/20 08:08 1 CAP Levothyroxine Sodium (Synthroid) 100 mcg DAILYAC 03/30/20 07:30 04/03/20 07:23 100 MCG Norepinephrine Bitartrate 8 mg/ Dextrose 258 ml @ 12.5 mls/hr CONT PRN 03/30/20 13:00 04/02/20 14:42 DC 03/30/20 15:42 18.5 MLS/HR Piperacillin Sod/ Tazobactam Sod 2.25 gm/Sodium Chloride 50 ml @ 100 mls/hr Q8HRS 03/29/20 22:00 04/03/20 07:23 100 MLS/HR Potassium Chloride (Klor-Con) 40 meq 1X ONCE 03/29/20 18:15 03/29/20 18:20 DC 03/29/20 18:58 40 MEQ Sevelamer Carbonate (Renvela) 800 mg TIDWMEALS 03/29/20 18:00 04/03/20 08:08 800 MG Sodium Chloride 250 ml @ 250 mls/hr 1X ONCE 03/30/20 11:30 03/30/20 12:58 DC 03/30/20 11:35 250 MLS/HR Vancomycin HCl (Vanco Per Pharmacy) 1 each PRN DAILY PRN 03/29/20 20:15 04/01/20 08:40 1 EACH Vancomycin HCl (Vancomycin Random Level) 1 each 1X ONCE 04/03/20 05:00 04/03/20 05:01 DC 04/03/20 05:00 1 EACH Vancomycin HCl 1.75 gm/Sodium Chloride 500 ml @ 250 mls/hr 1X ONCE 03/29/20 23:00 03/30/20 00:59 DC 03/29/20 23:24 250 MLS/HR Lab Laboratory Tests Test 04/03/20 05:00 White Blood Count 3.7 x10^3/uL (4.0-11.0) Red Blood Count 2.46 x10^6/uL (4.30-5.70) Hemoglobin 7.5 g/dL (13.0-17.5) Hematocrit 21.5 % (39.0-53.0) Mean Corpuscular Volume 88 fL (79-100) Mean Corpuscular Hemoglobin 30 pg (25-35) Mean Corpuscular Hemoglobin Concent 35 g/dL (31-37) Red Cell Distribution Width 15.1 % (11.5-14.5) Platelet Count 129 x10^3/uL (140-400) Neutrophils (%) (Auto) 66 % (31-73) Lymphocytes (%) (Auto) 19 % (24-48) Monocytes (%) (Auto) 10 % (0-9) Eosinophils (%) (Auto) 5 % (0-3) Basophils (%) (Auto) 1 % (0-3) Neutrophils # (Auto) 2.4 x10^3/uL (1.8-7.7) Lymphocytes # (Auto) 0.7 x10^3/uL (1.0-4.8) Monocytes # (Auto) 0.4 x10^3/uL (0.0-1.1) Eosinophils # (Auto) 0.2 x10^3/uL (0.0-0.7) Basophils # (Auto) 0.0 x10^3/uL (0.0-0.2) Sodium Level 139 mmol/L (136-145) Potassium Level 3.4 mmol/L (3.5-5.1) Chloride Level 101 mmol/L (98-107) Carbon Dioxide Level 25 mmol/L (21-32) Anion Gap 13 (6-14) Blood Urea Nitrogen 60 mg/dL (8-26) Creatinine 12.2 mg/dL (0.7-1.3) Estimated GFR (Cockcroft-Gault) 4.8 BUN/Creatinine Ratio 5 (6-20) Glucose Level 85 mg/dL (70-99) Calcium Level 6.3 mg/dL (8.5-10.1) Phosphorus Level 8.0 mg/dL (2.6-4.7) Total Bilirubin 0.4 mg/dL (0.2-1.0) Aspartate Amino Transf (AST/SGOT) 11 U/L (15-37) Alanine Aminotransferase (ALT/SGPT) < 6 U/L (16-63) Alkaline Phosphatase 285 U/L (46-116) Total Protein 5.3 g/dL (6.4-8.2) Albumin 1.4 g/dL (3.4-5.0) Albumin/Globulin Ratio 0.4 (1.0-1.7) Random Vancomycin Level 19.3 mcg/mL Results All relevant outside records, renal labs, imaging studies, telemetry/EKG's were reviewed. Justicifation of Admission Dx: Justifications for Admission: Justification of Admission Dx: Yes KODAK RICHEY MD Apr 03, 2020 10:41
--- NOTE | 2020-04-03 10:56 | PDOC ---
Infectious Disease Note Subjective Subjective better Denies pain/N/V/F/C/SOA/rash Eating better ROS ROS o/w neg Vital Sign Vital Signs Vital Signs Date Time Temp Pulse Resp B/P (MAP) Pulse Ox O2 Delivery O2 Flow Rate FiO2 04/03/20 08:09 79 105/74 04/03/20 07:15 98.6 20 98 Room Air 98.6 Physical Exam PHYSICAL EXAM GENERAL: Lying down, awake, Coop. looks well HEENT: Pupils equally round and reactive. Oropharynx pink and moist. No lesions seen. NECK: Supple. LUNGS: Clear to auscultation. HEART: S1, S2. regular ABDOMEN: Mildly distended, soft, nontender. PD catheter intact. Bowel sounds present. EXTREMITIES: No gross edema or cyanosis. Large area of bruising right lower extremity stable. Left wrist splint remains in place, fingers warm SKIN: Warm to touch. No signs of rash. Viscosities back area. NEUROLOGIC: Awake, and answering questions appropriately. PIV Labs Lab Laboratory Tests Test 04/03/20 05:00 White Blood Count 3.7 x10^3/uL (4.0-11.0) Red Blood Count 2.46 x10^6/uL (4.30-5.70) Hemoglobin 7.5 g/dL (13.0-17.5) Hematocrit 21.5 % (39.0-53.0) Mean Corpuscular Volume 88 fL (79-100) Mean Corpuscular Hemoglobin 30 pg (25-35) Mean Corpuscular Hemoglobin Concent 35 g/dL (31-37) Red Cell Distribution Width 15.1 % (11.5-14.5) Platelet Count 129 x10^3/uL (140-400) Neutrophils (%) (Auto) 66 % (31-73) Lymphocytes (%) (Auto) 19 % (24-48) Monocytes (%) (Auto) 10 % (0-9) Eosinophils (%) (Auto) 5 % (0-3) Basophils (%) (Auto) 1 % (0-3) Neutrophils # (Auto) 2.4 x10^3/uL (1.8-7.7) Lymphocytes # (Auto) 0.7 x10^3/uL (1.0-4.8) Monocytes # (Auto) 0.4 x10^3/uL (0.0-1.1) Eosinophils # (Auto) 0.2 x10^3/uL (0.0-0.7) Basophils # (Auto) 0.0 x10^3/uL (0.0-0.2) Sodium Level 139 mmol/L (136-145) Potassium Level 3.4 mmol/L (3.5-5.1) Chloride Level 101 mmol/L (98-107) Carbon Dioxide Level 25 mmol/L (21-32) Anion Gap 13 (6-14) Blood Urea Nitrogen 60 mg/dL (8-26) Creatinine 12.2 mg/dL (0.7-1.3) Estimated GFR (Cockcroft-Gault) 4.8 BUN/Creatinine Ratio 5 (6-20) Glucose Level 85 mg/dL (70-99) Calcium Level 6.3 mg/dL (8.5-10.1) Phosphorus Level 8.0 mg/dL (2.6-4.7) Total Bilirubin 0.4 mg/dL (0.2-1.0) Aspartate Amino Transf (AST/SGOT) 11 U/L (15-37) Alanine Aminotransferase (ALT/SGPT) < 6 U/L (16-63) Alkaline Phosphatase 285 U/L (46-116) Total Protein 5.3 g/dL (6.4-8.2) Albumin 1.4 g/dL (3.4-5.0) Albumin/Globulin Ratio 0.4 (1.0-1.7) Random Vancomycin Level 19.3 mcg/mL Micro Microbiology 03/30/20 Blood Culture - Preliminary, Resulted NO GROWTH AFTER 3 DAYS 03/29/20 Gram Stain - Final, Resulted 03/29/20 Aerobic and Anaerobic Culture - Preliminary, Resulted Objective Assessment Note 04/02 written in hard chart Pancytopenia - ? cirrhosis related vs med Acute abdominal pain Peritonitis -Peritoneal fl: cell count 1330. no organisms on gram stain. cx NGTD -H/o [facility] peritionitis at [facility]. Hypotension x 2 IVF boluses, now off levophed CKD on peritoneal dialysis Anemia s/p PRBCs, 03/30 Cirrhosis and portal hypertension on Ct scan Hypothyroidism Gout h/o TBI Plan Plan of Care D/c Vancomycin trough /3 today dose Zyvox starting 04/04 D/c Zosyn begin Augmentin Ok to d/c with abx for 7 days Discussed risk of re-occurrence and if happened would need PD cath removed for now cults ODILON Anderson MD Apr 03, 2020 10:55
[2020-04-03 11:03] VITALS: BP 122/85
--- NOTE | 2020-04-03 11:15 | NUR ---
RADHA following. Discussed with RN, Dr. Finnegan consulted. RADHA spoke with Jadyn at [facility], she advised she cannot talk to SW without an SIENNA signed by pt, Jadyn stated pt will sign it. RADHA met with pt (no isolation precautions at the time), pt did not want to sign the SIENNA, or give permission for Jadyn to speak with SW. SW had voicemail from Jadyn stating she is off for the rest of the day and will try to answer if SW calls. RADHA contacted Jadyn back to advise pt would not sign SIENNA, Jadyn did not answer and voicemail box is full. RADHA spoke with pt's brother, Isiah - he advised he cannot take his brother back home because he "cannoot keep him safe." RADHA discussed with Isiah the different options - if pt is deemed incompetent then he can be placed in a prison after a guardian is appointment by the court, if he deemed competent then we cannot make him go to a facility if he does not want to. RADHA questioned whether Isiah would consider taking pt home, if he is deemed incompetent whilst waiting for the court appointed guardian? Isiah would not answer the question directly - just stating he cannot keep him safe. Isiah reported he works 60 hours a week and his works 6 days a week, so they are not home to watch over pt and stop him from seeing his brother, Meme. Isiah reported pt has services through [facility], and has a personal loan specialist, which used to be brother, Meme but is now Isiah. RADHA contacted [facility](ph: [phone]) to determine services provided for pt. Pt was receiving OT through [facility], and was about to start speech therapy. Patty at [facility] provided number for pt's TBI waiver coordinator, Susan Juan (ph: [phone]). RADHA contacted barbara Davis - Susan is out of office, returning tomorrow (04/04/2020). RADHA will continue to follow. Addendum: 04/03/20 at 1511 by GEOVANNA GARCIA RADHA spoke with Jessica Lopez at [facility], she advised she has known the pt for 10-15 years. Jessica reported pt had been in a facility at one point and had taken off in the middle of the night from [facility], and went to [place] which is why the [place] guardianship was dropped. RADHA spoke with Isiah again who advised pt's sister picked pt up in the middle in the night and took him to [place]. Pt was brought back to [place] by the sister and left with his parents who then moved to [place] in November of 2019, Erasmo stayed with his brother Isiah. Isiah reported when Erasmo is not at his home, Meme does not come around, however when Erasmo is there, Meme comes to Isiah's home and "acts crazy" and is on drugs and scares his children. Isiah reports Erasmo is not the problem it is Meme, and one way to get rid of Meme is to get rid of Erasmo. Isiah reported they are just "waiting for Erasmo to pass away" because he "can't really do anything with his life." RADHA arranged a three way call for 04/04/2020 at 0830 with Jessica at [facility] and Isiah. RADHA will continue to follow.
[2020-04-03 15:09] VITALS: BP 99/69
[2020-04-03] MEDS: AMOXICILLIN/K CLAV 500/125MG TABLET. PO SCH (17:37)
[2020-04-03 19:00] VITALS: BP 134/94
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
[2020-04-03] MEDS: HYDROcodone/APAP 5/325MG 1 TAB TABLET PO PRN (21:48)
[2020-04-03] MEDS: HALOPERIDOL 5 MG TABLET. PO SCH (21:49)
[2020-04-03 23:00] VITALS: BP 123/87
[2020-04-04 03:00] VITALS: BP 133/86
[2020-04-04 04:39] LABS: BASO # 0.1 x10^3/uL (0.0-0.2); BASO % 1 % (0-3); EOS # 0.2 x10^3/uL (0.0-0.7); EOS % 5 % (0-3); HEMATOCRIT 21.9 % (39.0-53.0); HEMOGLOBIN 7.6 g/dL (13.0-17.5); LYMPH # 0.8 x10^3/uL (1.0-4.8); LYMPH % 20 % (24-48); MEAN CORPUSCULAR HEMOGLOBIN 30 pg (25-35); MEAN CORPUSCULAR HGB CONC 35 g/dL (31-37); MEAN CORPUSCULAR VOLUME 88 fL (79-100); MONO # 0.4 x10^3/uL (0.0-1.1); MONO % 9 % (0-9); NEUT # 2.7 x10^3/uL (1.8-7.7); NEUT % 65 % (31-73); PLATELET COUNT 135 x10^3/uL (140-400); RED CELL DISTRIBUTION WIDTH 15.2 % (11.5-14.5); WHITE BLOOD COUNT 4.1 x10^3/uL (4.0-11.0)
[2020-04-04 04:52] LABS: CALCIUM 6.1 mg/dL (8.5-10.1); CREATININE 12.4 mg/dL (0.7-1.3); GFR 4.7; POTASSIUM 3.4 mmol/L (3.5-5.1)
[2020-04-04] MEDS: LEVOTHYROXINE 100 MCG TABLET PO SCH (06:32)
[2020-04-04 07:00] VITALS: BP 99/32
[2020-04-04] MEDS: SEVELAMER CARBONATE 800 MG TABLET. PO SCH ×3 (08:44→17:35)
[2020-04-04] MEDS: AMOXICILLIN/K CLAV 500/125MG TABLET. PO SCH (08:45)
[2020-04-04] MEDS: ALLOPURINOL 100 MG TABLET. PO SCH (08:45)
[2020-04-04] MEDS: CINACALCET HCL 30 MG TABLET PO SCH (08:45)
[2020-04-04] MEDS: LACTOBACILLUS RHAMNOSUS GG 1 CAPSULE. PO SCH ×2 (08:45→21:17)
[2020-04-04] MEDS: hydrOXYzine 25 MG TABLET PO SCH ×3 (08:45→21:17)
[2020-04-04] MEDS: LINEZOLID 600 MG TABLET PO SCH ×2 (08:45→21:17)
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
[2020-04-04 11:00] VITALS: BP 102/42
[2020-04-04] MEDS: CARVEDILOL 3.125 MG TABLET. PO SCH ×2 (11:55→17:00)
--- NOTE | 2020-04-04 12:59 | PDOC ---
SUBJECTIVE ROS No complaints this am, denies pain in abdomen . OBJECTIVE Vital Signs Vital Signs Date Time Temp Pulse Resp B/P (MAP) Pulse Ox O2 Delivery O2 Flow Rate FiO2 04/04/20 11:55 76 102/42 04/04/20 11:00 98.0 18 100 Room Air 98.0 I & 0 Intake and Output 04/04/20 07:00 Intake Total 770 ml Balance 770 ml Intake Oral 770 ml # Voids 1 # Bowel Movements 3 PHYSICAL EXAM Physical Exam GENERAL: NAD HEENT: OM moist. NECK: Supple. LUNGS: Clear to auscultation. HEART: S1, S2. regular ABDOMEN: , soft, nontender. PD catheter intact. Bowel sounds present. EXTREMITIES: No gross edema or cyanosis.Pigmentation RT LE SKIN: No signs of rash. NEUROLOGIC: Alert and answering questions appropriately. 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 Hughes HypoKAlemia- Mild Replace PO Abdominal pain- Resolved 2/2 Peritonitis ,effluent Currently on Abx per ID , switched to PO Can be dced on PO Abx per ID HypoCalcemia - corrected for Albumin, Ca is 9 Held Sensipar Hypotension - resolved, stable Anemia- baseline unknown Drop in Hgb , started SAURABH stable Splenomegaly on CT Cirrhosis and portal vein hypertension- On CT , pt denies Etoh use US- Normal sonographic appearance of the liver and gallbladder. No evidence for acute cholecystitis. Possible lower pole right renal mass. Renal cyst versus calcified aneurysm of the upper right kidney. Consult Urology Oval opacity at the right tracheobronchial angle on Cxr CT chest with co ntrast - no suspicious thoracic mass. corresponds to a very distended azygos vein . Significant collateral venous structures are noted involving the right axillary and chest wall region. Mediastinal collaterals. Correlate for underlying right subclavian venous occlusive process. Social/Family Issues COMMENT/RELEVANT DATA Meds Current Medications Medications (Trade) Dose Ordered Sig/Corky Start Time Stop Time Status Last Admin Dose Admin Acetaminophen/ Hydrocodone Bitart (Lortab 5/325) 1 tab PRN Q4HRS PRN 03/29/20 18:15 04/03/20 21:48 1 TAB Allopurinol (Zyloprim) 100 mg DAILY 03/30/20 09:00 04/04/20 08:45 100 MG Amoxicillin/ Clavulanate Potassium (Augmentin 500/ 125mg) 1 tab DAILY 04/03/20 17:00 04/04/20 08:45 1 TAB Calcium Carbonate/ Glycine (Oscal) 500 mg PRN BID PRN 03/29/20 18:00 Carvedilol (Coreg) 3.125 mg BIDWMEALS 03/31/20 17:00 04/03/20 17:38 3.125 MG Cinacalcet (Sensipar) 90 mg DAILY 03/30/20 09:00 04/04/20 08:45 90 MG Darbepoetin Billy (ARANESP for DIALYSIS PTS) 40 mcg WEEKLYHS 03/31/20 21:00 03/31/20 20:34 40 MCG Fentanyl Citrate (Fentanyl 2ml Vial) 50 mcg 1X ONCE 03/29/20 11:30 03/29/20 11:31 DC 03/29/20 11:56 50 MCG Haloperidol (Haldol) 2.5 mg HS 04/03/20 21:00 04/03/20 21:49 2.5 MG Hydroxyzine HCl (Atarax) 25 mg TID 03/29/20 21:00 04/04/20 08:45 25 MG Info (CONTRAST GIVEN -- Rx MONITORING) 1 each PRN DAILY PRN 03/29/20 12:45 03/31/20 12:44 DC Iohexol (Omnipaque 300 Mg/ml) 75 ml 1X ONCE 03/29/20 12:45 03/29/20 12:46 DC 03/29/20 12:44 75 ML Lactobacillus Rhamnosus (Culturelle) 1 cap BID 03/30/20 21:00 04/04/20 08:45 1 CAP Levothyroxine Sodium (Synthroid) 100 mcg DAILYAC 03/30/20 07:30 04/04/20 06:32 100 MCG Linezolid (Zyvox) 600 mg BID 04/04/20 09:00 04/04/20 08:45 600 MG Norepinephrine Bitartrate 8 mg/ Dextrose 258 ml @ 12.5 mls/hr CONT PRN 03/30/20 13:00 04/02/20 14:42 DC 03/30/20 15:42 18.5 MLS/HR Piperacillin Sod/ Tazobactam Sod 2.25 gm/Sodium Chloride 50 ml @ 100 mls/hr Q8HRS 03/29/20 22:00 04/03/20 10:55 DC 04/03/20 07:23 100 MLS/HR Potassium Chloride (Klor-Con) 40 meq 1X ONCE 03/29/20 18:15 03/29/20 18:20 DC 03/29/20 18:58 40 MEQ Sevelamer Carbonate (Renvela) 800 mg TIDWMEALS 03/29/20 18:00 04/04/20 12:03 800 MG Sodium Chloride 250 ml @ 250 mls/hr 1X ONCE 03/30/20 11:30 03/30/20 12:58 DC 03/30/20 11:35 250 MLS/HR Vancomycin HCl (Vanco Per Pharmacy) 1 each PRN DAILY PRN 03/29/20 20:15 04/03/20 11:24 DC 04/01/20 08:40 1 EACH Vancomycin HCl (Vancomycin Random Level) 1 each 1X ONCE 04/03/20 05:00 04/03/20 05:01 DC 04/03/20 05:00 1 EACH Vancomycin HCl 1.75 gm/Sodium Chloride 500 ml @ 250 mls/hr 1X ONCE 03/29/20 23:00 03/30/20 00:59 DC 03/29/20 23:24 250 MLS/HR Lab Laboratory Tests Test 04/04/20 04:14 White Blood Count 4.1 x10^3/uL (4.0-11.0) Red Blood Count 2.50 x10^6/uL (4.30-5.70) Hemoglobin 7.6 g/dL (13.0-17.5) Hematocrit 21.9 % (39.0-53.0) Mean Corpuscular Volume 88 fL (79-100) Mean Corpuscular Hemoglobin 30 pg (25-35) Mean Corpuscular Hemoglobin Concent 35 g/dL (31-37) Red Cell Distribution Width 15.2 % (11.5-14.5) Platelet Count 135 x10^3/uL (140-400) Neutrophils (%) (Auto) 65 % (31-73) Lymphocytes (%) (Auto) 20 % (24-48) Monocytes (%) (Auto) 9 % (0-9) Eosinophils (%) (Auto) 5 % (0-3) Basophils (%) (Auto) 1 % (0-3) Neutrophils # (Auto) 2.7 x10^3/uL (1.8-7.7) Lymphocytes # (Auto) 0.8 x10^3/uL (1.0-4.8) Monocytes # (Auto) 0.4 x10^3/uL (0.0-1.1) Eosinophils # (Auto) 0.2 x10^3/uL (0.0-0.7) Basophils # (Auto) 0.1 x10^3/uL (0.0-0.2) Sodium Level 139 mmol/L (136-145) Potassium Level 3.4 mmol/L (3.5-5.1) Chloride Level 101 mmol/L (98-107) Carbon Dioxide Level 24 mmol/L (21-32) Anion Gap 14 (6-14) Blood Urea Nitrogen 53 mg/dL (8-26) Creatinine 12.4 mg/dL (0.7-1.3) Estimated GFR (Cockcroft-Gault) 4.7 Glucose Level 98 mg/dL (70-99) Calcium Level 6.1 mg/dL (8.5-10.1) Results All relevant outside records, renal labs, imaging studies, telemetry/EKG's were reviewed. Justicifation of Admission Dx: Justifications for Admission: Justification of Admission Dx: Yes KODAK RICHEY MD Apr 04, 2020 12:59
[2020-04-04] MEDS ORDERED: POTASSIUM CHLORIDE 20 MEQ TABLET.ER. PO SCH (14:00)
[2020-04-04 15:00] VITALS: BP 98/34
[2020-04-04 19:00] VITALS: BP 113/79
--- NOTE | 2020-04-04 20:32 | PDOC ---
F/U PHYSCH PROG NOTE Subjective: Gentleman is seen for follow-up. Progress is reviewed with nursing staff. No major event or agitation reported. Mental status is reportedly slightly better. He is relatively more interactive and clear minded. Focused on his peritoneal dialysis machine. Denies suicidal or homicidal thoughts. Denies auditory or visual hallucinations. Tolerating Haldol 2.5 mg. Denies adverse drug reaction. Objective: Vital Signs: Vital Signs Date Time Temp Pulse Resp B/P (MAP) Pulse Ox O2 Delivery O2 Flow Rate FiO2 04/04/20 17:00 69 127/30 04/04/20 15:00 98.0 18 100 Room Air 98.0 Labs: Laboratory Tests Test 04/04/20 04:14 White Blood Count 4.1 x10^3/uL (4.0-11.0) Red Blood Count 2.50 x10^6/uL (4.30-5.70) L Hemoglobin 7.6 g/dL (13.0-17.5) L Hematocrit 21.9 % (39.0-53.0) L Mean Corpuscular Volume 88 fL (79-100) Mean Corpuscular Hemoglobin 30 pg (25-35) Mean Corpuscular Hemoglobin Concent 35 g/dL (31-37) Red Cell Distribution Width 15.2 % (11.5-14.5) H Platelet Count 135 x10^3/uL (140-400) L Neutrophils (%) (Auto) 65 % (31-73) Lymphocytes (%) (Auto) 20 % (24-48) L Monocytes (%) (Auto) 9 % (0-9) Eosinophils (%) (Auto) 5 % (0-3) H Basophils (%) (Auto) 1 % (0-3) Neutrophils # (Auto) 2.7 x10^3/uL (1.8-7.7) Lymphocytes # (Auto) 0.8 x10^3/uL (1.0-4.8) L Monocytes # (Auto) 0.4 x10^3/uL (0.0-1.1) Eosinophils # (Auto) 0.2 x10^3/uL (0.0-0.7) Basophils # (Auto) 0.1 x10^3/uL (0.0-0.2) Sodium Level 139 mmol/L (136-145) Potassium Level 3.4 mmol/L (3.5-5.1) L Chloride Level 101 mmol/L (98-107) Carbon Dioxide Level 24 mmol/L (21-32) Anion Gap 14 (6-14) Blood Urea Nitrogen 53 mg/dL (8-26) H Creatinine 12.4 mg/dL (0.7-1.3) H Estimated GFR (Cockcroft-Gault) 4.7 Glucose Level 98 mg/dL (70-99) Calcium Level 6.1 mg/dL (8.5-10.1) L Laboratory Tests 04/04/20 04:14 Laboratory Tests 04/04/20 04:14 Medications: Current Medications Medications (Trade) Dose Ordered Sig/Corky Start Time Stop Time Status Last Admin Dose Admin Acetaminophen/ Hydrocodone Bitart (Lortab 5/325) 1 tab PRN Q4HRS PRN 03/29/20 18:15 04/03/20 21:48 1 TAB Allopurinol (Zyloprim) 100 mg DAILY 03/30/20 09:00 04/04/20 08:45 100 MG Amoxicillin/ Clavulanate Potassium (Augmentin 500/ 125mg) 1 tab DAILY 04/03/20 17:00 04/04/20 08:45 1 TAB Calcium Carbonate/ Glycine (Oscal) 500 mg PRN BID PRN 03/29/20 18:00 Carvedilol (Coreg) 3.125 mg BIDWMEALS 03/31/20 17:00 04/03/20 17:38 3.125 MG Cinacalcet (Sensipar) 90 mg DAILY 03/30/20 09:00 04/04/20 08:45 90 MG Darbepoetin Billy (ARANESP for DIALYSIS PTS) 40 mcg WEEKLYHS 03/31/20 21:00 03/31/20 20:34 40 MCG Fentanyl Citrate (Fentanyl 2ml Vial) 50 mcg 1X ONCE 03/29/20 11:30 03/29/20 11:31 DC 03/29/20 11:56 50 MCG Haloperidol (Haldol) 2.5 mg HS 04/03/20 21:00 04/03/20 21:49 2.5 MG Hydroxyzine HCl (Atarax) 25 mg TID 03/29/20 21:00 04/04/20 08:45 25 MG Info (CONTRAST GIVEN -- Rx MONITORING) 1 each PRN DAILY PRN 03/29/20 12:45 03/31/20 12:44 DC Iohexol (Omnipaque 300 Mg/ml) 75 ml 1X ONCE 03/29/20 12:45 03/29/20 12:46 DC 03/29/20 12:44 75 ML Lactobacillus Rhamnosus (Culturelle) 1 cap BID 03/30/20 21:00 04/04/20 08:45 1 CAP Levothyroxine Sodium (Synthroid) 100 mcg DAILYAC 03/30/20 07:30 04/04/20 06:32 100 MCG Linezolid (Zyvox) 600 mg BID 04/04/20 09:00 04/04/20 08:45 600 MG Norepinephrine Bitartrate 8 mg/ Dextrose 258 ml @ 12.5 mls/hr CONT PRN 03/30/20 13:00 04/02/20 14:42 DC 03/30/20 15:42 18.5 MLS/HR Piperacillin Sod/ Tazobactam Sod 2.25 gm/Sodium Chloride 50 ml @ 100 mls/hr Q8HRS 03/29/20 22:00 04/03/20 10:55 DC 04/03/20 07:23 100 MLS/HR Potassium Chloride (Klor-Con) 20 meq DAILYWBKFT 04/04/20 14:00 Sevelamer Carbonate (Renvela) 800 mg TIDWMEALS 03/29/20 18:00 04/04/20 17:35 800 MG Sodium Chloride 250 ml @ 250 mls/hr 1X ONCE 03/30/20 11:30 03/30/20 12:58 DC 03/30/20 11:35 250 MLS/HR Vancomycin HCl (Vanco Per Pharmacy) 1 each PRN DAILY PRN 03/29/20 20:15 04/03/20 11:24 DC 04/01/20 08:40 1 EACH Vancomycin HCl (Vancomycin Random Level) 1 each 1X ONCE 04/03/20 05:00 04/03/20 05:01 DC 04/03/20 05:00 1 EACH Vancomycin HCl 1.75 gm/Sodium Chloride 500 ml @ 250 mls/hr 1X ONCE 03/29/20 23:00 03/30/20 00:59 DC 03/29/20 23:24 250 MLS/HR Physical Exam: Mental Status Exam: 34-year-old gentleman, appears as a stated age, Not able to communicate effectively due to confusion. Cooperative Disoriented Thought processes disorganized Denies auditory or visual hallucinations. No abnormal perceptions noted Denies SI or HI. Mood is stable Affect is euthymic Attention span and concentration fair Recent memory is impaired. Physical Exam: Refer to Physician's note. RECYCLING COORDINATOR: No focal deficit MSK: No EPS, TDK, or abnormal involuntary movements Diagnosis: 1acute delirium likely multifactorial, hypoactive 2unspecified anxiety. Assessment: He is a young gentleman with multiple medical comorbidities admitted with abdominal pain. Pain likely of infectious etiology as he is on peritoneal dialysis. He is on multiple broad-spectrum antibiotics. He apparently confused due to delirium likely multifactorial including infection, renal failure, cirrhotic liver. Presently, he does not have capacity to understand medical treatment plan, rational decision making and following treatment plan. However, capacity may change as delirium improved. It is reasonable to add Haldol and low-dose to resolve delirium. 04/04/2020. Reportedly stable, relatively clear and interaction. Plan: 1continue Haldol 2.5 mg PO at bedtime for delirium resolution. Haldol is relatively safer in liver and kidney failure. 2-monitor for adverse drug reaction, symptomatology, and excessive sedation. 3-we will titrate Haldol accordingly. 4thank you for involving inpatient care. TODD TOTH MD Apr 04, 2020 20:32
[2020-04-04] MEDS: HALOPERIDOL 5 MG TABLET. PO SCH (21:17)
[2020-04-04] MEDS: HYDROcodone/APAP 5/325MG 1 TAB TABLET PO PRN (21:20)
--- NOTE | 2020-04-04 22:30 | NUR ---
Patient removed IV and will not let staff place another at this time. MD notified of no IV access, per MD ok for no access at this time.
[2020-04-04 23:00] VITALS: BP 106/69
--- NOTE | 2020-04-04 23:00 | NUR ---
Patient oxygen saturation measuring at 89% on room air; 2L O2 NC placed at this time. Patient encouraged to take deep breaths and will reassess oxygen saturation as needed.
[2020-04-05 03:00] VITALS: BP 103/70
[2020-04-05] MEDS: LEVOTHYROXINE 100 MCG TABLET PO SCH (06:34)
[2020-04-05 07:00] VITALS: BP 110/79
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
--- NOTE | 2020-04-05 11:10 | PDOC ---
SUBJECTIVE ROS Pt not in his room, per board mill supervisor effluent had some blood this am OBJECTIVE Vital Signs Vital Signs Date Time Temp Pulse Resp B/P (MAP) Pulse Ox O2 Delivery O2 Flow Rate FiO2 04/05/20 07:00 98.3 76 16 110/79 (89) 98 Room Air 98.3 I & 0 Intake and Output 04/05/20 07:00 Intake Total 1025 ml Balance 1025 ml Intake Oral 1025 ml # Voids 4 PHYSICAL EXAM Physical Exam GENERAL: NAD HEENT: OM moist. NECK: Supple. LUNGS: Clear to auscultation. HEART: S1, S2. regular ABDOMEN: , soft, nontender. PD catheter intact. Bowel sounds present. EXTREMITIES: No gross edema or cyanosis.Pigmentation RT LE SKIN: No signs of rash. NEUROLOGIC: Alert and answering questions appropriately. DIAGNOSIS/ASSESSMENT Assessment & Plan ESRD- On PD tolerating well ,effluent intermittent blood ?traumatic (as clears up) , may need to repeat cell count PD tonight, with 1.5 % Dianeal dw [facility] Physician - Dr. Hughes HypoKAlemia- Mild Replace PO Abdominal pain- Resolved 2/2 Peritonitis ,effluent Currently on Abx per ID , switched to PO Can be dced on PO Abx per ID HypoCalcemia - corrected for Albumin, Ca is 9 Held Sensipar Hypotension - resolved, stable Anemia- baseline unknown Drop in Hgb , started SAURABH stable Splenomegaly on CT Cirrhosis and portal vein hypertension- On CT , pt denies Etoh use US- Normal sonographic appearance of the liver and gallbladder. No evidence for acute cholecystitis. Possible lower pole right renal mass. Renal cyst versus calcified aneurysm of the upper right kidney. Consult Urology Oval opacity at the right tracheobronchial angle on Cxr CT chest with contrast - no suspicious thoracic mass. corresponds to a very distended azygos vein . Significant collateral venous structures are noted involving the right axillary and chest wall region. Mediastinal collaterals. Correlate for underlying right subclavian venous occlusive process. Social/Family Issues Pt left AMA COMMENT/RELEVANT DATA Meds Current Medications Medications (Trade) Dose Ordered Sig/Corky Start Time Stop Time Status Last Admin Dose Admin Acetaminophen/ Hydrocodone Bitart (Lortab 5/325) 1 tab PRN Q4HRS PRN 03/29/20 18:15 04/04/20 21:20 1 TAB Allopurinol (Zyloprim) 100 mg DAILY 7/3/20 09:00 04/04/20 08:45 100 MG Amoxicillin/ Clavulanate Potassium (Augmentin 500/ 125mg) 1 tab DAILY 04/03/20 17:00 04/04/20 08:45 1 TAB Calcium Carbonate/ Glycine (Oscal) 500 mg PRN BID PRN 03/29/20 18:00 Carvedilol (Coreg) 3.125 mg BIDWMEALS 03/31/20 17:00 04/03/20 17:38 3.125 MG Cinacalcet (Sensipar) 90 mg DAILY 03/30/20 09:00 04/04/20 08:45 90 MG Darbepoetin Billy (ARANESP for DIALYSIS PTS) 40 mcg WEEKLYHS 03/31/20 21:00 03/31/20 20:34 40 MCG Fentanyl Citrate (Fentanyl 2ml Vial) 50 mcg 1X ONCE 03/29/20 11:30 03/29/20 11:31 DC 03/29/20 11:56 50 MCG Haloperidol (Haldol) 2.5 mg HS 04/03/20 21:00 04/04/20 21:17 2.5 MG Hydroxyzine HCl (Atarax) 25 mg TID 03/29/20 21:00 04/04/20 21:17 25 MG Info (CONTRAST GIVEN -- Rx MONITORING) 1 each PRN DAILY PRN 03/29/20 12:45 03/31/20 12:44 DC Iohexol (Omnipaque 300 Mg/ml) 75 ml 1X ONCE 03/29/20 12:45 03/29/20 12:46 DC 03/29/20 12:44 75 ML Lactobacillus Rhamnosus (Culturelle) 1 cap BID 03/30/20 21:00 04/04/20 21:17 1 CAP Levothyroxine Sodium (Synthroid) 100 mcg DAILYAC 03/30/20 07:30 04/05/20 06:34 100 MCG Linezolid (Zyvox) 600 mg BID 04/04/20 09:00 04/04/20 21:17 600 MG Norepinephrine Bitartrate 8 mg/ Dextrose 258 ml @ 12.5 mls/hr CONT PRN 03/30/20 13:00 04/02/20 14:42 DC 03/30/20 15:42 18.5 MLS/HR Piperacillin Sod/ Tazobactam Sod 2.25 gm/Sodium Chloride 50 ml @ 100 mls/hr Q8HRS 03/29/20 22:00 04/03/20 10:55 DC 04/03/20 07:23 100 MLS/HR Potassium Chloride (Klor-Con) 20 meq DAILYWBKFT 04/04/20 14:00 Sevelamer Carbonate (Renvela) 800 mg TIDWMEALS 03/29/20 18:00 04/04/20 17:35 800 MG Sodium Chloride 250 ml @ 250 mls/hr 1X ONCE 03/30/20 11:30 03/30/20 12:58 DC 03/30/20 11:35 250 MLS/HR Vancomycin HCl (Vanco Per Pharmacy) 1 each PRN DAILY PRN 03/29/20 20:15 04/03/20 11:24 DC 04/01/20 08:40 1 EACH Vancomycin HCl (Vancomycin Random Level) 1 each 1X ONCE 04/03/20 05:00 04/03/20 05:01 DC 04/03/20 05:00 1 EACH Vancomycin HCl 1.75 gm/Sodium Chloride 500 ml @ 250 mls/hr 1X ONCE 03/29/20 23:00 03/30/20 00:59 DC 03/29/20 23:24 250 MLS/HR Results All relevant outside records, renal labs, imaging studies, telemetry/EKG's were reviewed. Justicifation of Admission Dx: Justifications for Admission: Justification of Admission Dx: Yes KODAK RICHEY MD Apr 05, 2020 11:10
--- NOTE | 2020-04-05 12:20 | NUR ---
Lcpc notified patient walking around nurse station with all personal belongings. Patient stated that he needs to go home. Educated patient that the hospital was trying to find placement for him, since his brother Isiah was no longer willing to take him back home. Lcpc and SINDHU Hoang walked patient back to room with redirection around 0845, patient was going to eat his breakfast. Lcpc went back to his room around 0915 and patient was not in his room and all personal belongings were taken. field underwriter came out to nurse station and asked if anyone has seen him walk by, no other staff seen him walk off unit. Lcpc notified security of patient missing from room. At that time SINDHU Hoang checked the unit with no luck of finding patient. Lcpc then notified SINDHU Thayer nursing supervisor cigar making hand of the patient missing from the unit. SINDHU Thayer stated to walk to hospital to see if we could located the missing patient. Lcpc walked the hospital for over 45 minutes checking each unit and exit with not luck of any staff members seeing the patient. returned to unit, SINDHU Quiroga and SINDHU Escobar both unit managers continued to locate the patient.
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
== END 2020-04-05 12:36 | disposition left against medical advice (07) | DRG 871 ==
LOC: ER 10:47 → ED HOLD 13:05 → 4 NORTH 15:59 → 6 SOUTH 17:09 → 1 WEST ICU 03-30 13:49 → 4 NORTH 03-31 15:30
PROVIDERS: ADMIT Internal Medicine; ATTEND Internal Medicine
PROC: 30233N1 Transfusion of Nonautologous Red Blood Cells into Peripheral Vein, Percutaneous Approach (ICD-10-PCS; principal; 2020-03-30)
DX: A41.9 Sepsis, unspecified organism (principal); K65.9 Peritonitis, unspecified; N18.6 End stage renal disease; R65.21 Severe sepsis with septic shock; K76.6 Portal hypertension; N25.81 Secondary hyperparathyroidism of renal origin; R18.8 Other ascites; D64.9 Anemia, unspecified; E03.9 Hypothyroidism, unspecified; E78.5 Hyperlipidemia, unspecified; F41.9 Anxiety disorder, unspecified; I12.9 Hypertensive chronic kidney disease with stage 1 through stage 4 chronic kidney disease, or unspecified chronic kidney disease; K74.60 Unspecified cirrhosis of liver; M10.9 Gout, unspecified; Z83.3 Family history of diabetes mellitus; Z87.820 Personal history of traumatic brain injury; Z99.2 Dependence on renal dialysis; E87.6 Hypokalemia; E83.51 Hypocalcemia; Z20.828 Contact with and (suspected) exposure to other viral communicable diseases
CPT/HCPCS: 36415; 71045; 71260; 74176; 76705; 80048; 80053; 80069; 80202; 82310; 83605; 83690; 84100; 84484; 85007; 85025; 85610; 86850; 86900; 86901; 86920; 87040; 87071; 87075; 87493; 89050; 93005; 93971; 96361; 96374; 99285; J0882; J2543; J3010; J3370; J3490; J7030; J7040; J7050; J7060; P9016; Q9967; G0378; U0003-CS